=== PATIENT | female | born 1955 | race Caucasian/White ===

== ENCOUNTER 2017-05-28 16:47 | Inpatient (IN) | payer OTHER ==
[2017-05-28] MEDS ORDERED: Levofloxacin 750mg IV 750 MG/150 ML BAG IV SCH (18:00)
[2017-05-28 18:24] LABS: Albumin 3.4 g/dL (3.2-5.5); Bilirubin Total 1.2 mg/dL (0.3-1.2); Potassium 4.4 mEq/L (3.6-5.0); Protein, Total 7.6 g/dL (6.0-8.3)
[2017-05-28 18:29] LABS: Absolute Lymphocytes (CBC) 1.1 K/uL (0.7-4.9); Absolute Monocytes 0.6 K/uL (0.1-1.3); Basophils % 0.2 % (0-1.3); Eosinophils % 0.1 % (0-4.4); Hematocrit 30.7 % (36.0-45.0); Lymphocytes % 6.6 % (15.3-44.8); MCH 29.3 pg (27.0-35.0); MCV 86.4 fL (80-100); MPV 8.9 fL (7.6-11.3); Monocytes % 3.8 % (3.3-12.3); RBC Red Blood Cell Count 3.56 M/uL (3.86-4.86)
[2017-05-28 19:16] LABS: Urine Appearance CLOUDY; Urine Blood TRACE (NEG); Urine Color DK YELLOW; Urine Glucose NEGATIVE (NEG); Urine Protein 2+ (NEG); Urine Specific Gravity 1.025 (1.005-1.030); Urine Urobilinogen 0.2 mg/dL (0.2-1.0)
[2017-05-28 19:22] LABS: Urine Bilirubin 1+ (NEG)
[2017-05-28 19:23] LABS: Urine Microscopic Reflex ORDER UMIC
[2017-05-28 19:27] LABS: Urine Bacteria 20-50 /HPF (<20); Urine Culture Reflex Order REFLEXED; Urine Mucus 2+ /HPF (NONE SEEN)
[2017-05-28 19:46] LABS: Blood Morphology Comment NOT SEEN (NOT SEEN); Platelet Estimate ADEQ; Urine White Blood Cell Casts OK
[2017-05-28] MEDS ORDERED: GLUCAGON 1 MG/VIAL IM PRN (20:20)
[2017-05-28] MEDS ORDERED: D50W 25 GM/50 ML SYRINGE IV PRN (20:20)
[2017-05-28] MEDS ORDERED: GUAIFENESIN/CODEINE 5ML UCUP PO SCH (21:00)
[2017-05-28] MEDS: GABAPENTIN PO SCH (21:00)
[2017-05-28] MEDS: GUAIFENESIN/CODEINE 5ML UCUP PO PRN (21:51)
[2017-05-28] MEDS: INSULIN DETEMIR 100 UNIT/1 ML INSULIN SQ SCH (22:13)
[2017-05-28] MEDS: INSULIN -REGULAR HUMAN 50 UNIT/0.5 ML ML SQ SCH (22:13)
[2017-05-28] MEDS: ATORVASTATIN 40 MG TAB PO SCH (22:36)
[2017-05-29] MEDS: GUAIFENESIN/CODEINE 5ML UCUP PO PRN ×3 (05:11→20:30)
[2017-05-29] MEDS: INSULIN -REGULAR HUMAN 50 UNIT/0.5 ML ML SQ SCH ×4 (07:30→21:19)
--- NOTE | 2017-05-29 08:43 | P.CNS ---
Date of Consult: 05/29/17 Reason for Consult: Shortness of breath Chief Complaint: Shortness of breath History of Present Illness: Patient is 61 years of age has become sick over the weekend started complaining of worsening dyspnea cough congestion feeling weak had some low-grade fever pain all over and was admitted to the hospital she has had no prior pulmonary problems history of cornea artery disease patient does not take any bronchodilators or inhalers patient does not smoke Allergies prednisone Allergy (Verified 05/07/17 12:59) Hives/Rash vancomycin Adverse Reaction (Verified 05/07/17 12:59) Itching/Hives/Rash Home Medications: Clopidogrel Bisulfate [Clopidogrel] 75 mg PO DAILY 05/20/14 Furosemide 80 mg PO DAILY 05/20/14 Glimepiride 4 mg PO DAILY 05/20/14 Levothyroxine Sodium 200 mcg PO DAILY 05/20/14 Ranolazine [Ranexa] 1,000 mg PO BID #180 tab.er.12h 12/23/14 Amlodipine [Norvasc*] 5 mg PO DAILY 05/07/17 Atorvastatin Calcium [Lipitor] 40 mg PO BEDTIME 05/07/17 Escitalopram [Lexapro*] 20 mg PO DAILY 05/07/17 Gabapentin [Gralise] 300 mg PO DAILY 05/07/17 Gabapentin [Gralise] 2 tab PO BEDTIME 05/28/17 Insulin Aspart [Novolog] 10 - 15 units SQ BIDWM 05/28/17 Insulin Glargine,Hum.rec.anlog [Lantus] 45 units SQ BEDTIME 05/28/17 - Past Medical/Surgical History Diabetic: Yes -: IDDM -: Hyperlipidemia -: mild CHF -: HTN -: hysterectomy -: thyroidectomy -: choleysectomy -: R foot sx -: heart stents X2 - Family History Mother Medical History: Stroke Notes: heart stent Father Medical History: Heart disease, Cancer - Social History Alcohol use: No CD- Drugs: No Caffeine use: Yes Place of Residence: Home Review of Systems 10-point ROS is otherwise unremarkable Physical Examination Temp Pulse Resp BP Pulse Ox 98.2 F 87 16 142/66 H 91 05/29/17 04:00 05/29/17 04:00 05/29/17 04:00 05/29/17 04:00 05/29/17 04:00 General: Alert, Oriented x3 HEENT: Atraumatic Neck: Supple Respiratory: Clear to auscultation bilaterally, Diminished Cardiovascular: No edema, Regular rate/rhythm Gastrointestinal: Normal bowel sounds, Soft and benign, No tenderness, No masses Laboratory Data (last 24 hrs) 05/28/17 17:44: Sodium 130 L, Potassium 4.4, BUN 55 H, Creatinine 2.28 H, Glucose 233 H, Total Bilirubin 1.2, AST 61 H, ALT 43, Alkaline Phosphatase 106 05/28/17 17:44: WBC 16.8 H, Hgb 10.4 L, Hct 30.7 L, Plt Count 281 - Problems (1) Pneumonia Onset Date: 05/20/14 Current Visit: No Status: Acute Plan: Patient is 61 years of age admitted with 3-4 history of increasing shortness of breath cough congestion fever found to have a left lower lobe pneumonia her white count is elevated renal function is mildly worse cultures are pending oxygenation satisfactory on 2 L vital signs stable patient is on IV levofloxacin patient does have some diastolic dysfunction she has had echoes and to cardiac caths history of coronary artery disease Qualifiers: Lung location: unspecified part of lung
[2017-05-29] MEDS: FUROSEMIDE 40 MG TABLET PO SCH (08:46)
[2017-05-29] MEDS: GLIMEPIRIDE 2 MG TABLET PO SCH (08:46)
[2017-05-29] MEDS: CLOPIDOGREL 75 MG TABLET PO SCH (08:47)
[2017-05-29] MEDS: ESCITALOPRAM 20 MG TAB PO SCH (08:47)
[2017-05-29] MEDS: AMLODIPINE 5 MG TAB PO SCH (08:47)
[2017-05-29] MEDS: LEVOTHYROXINE SOD 0.1 MG TAB PO SCH (08:47)
[2017-05-29] MEDS: ENOXAPARIN 30 MG/0.3 ML SQ SCH (17:28)
--- NOTE | 2017-05-29 19:24 | HP ---
Date of Admission: 05/28/2017 Chief Complaint: Cough, fever, shortness of breath. History Of Present Illness: A 61-year-old female was brought to the office with a few days of cough, congestion and fever. She was examined, and clinically she was thought to have pneumonia. An x-ray outpatient was done, which confirmed large left pneumonia. The patient is admitted. The patient de nied any history of hemoptysis. Past Medical History: Extensive, includes history of chronic renal failure, coronary artery disease, congestive heart failure, type 2 diabetes, hypothyroidism. She had multiple surgeries for her feet. Family History: Diabetes present. Personal History: Nonsmoker. Allergies: VANCOMYCIN, PREDNISONE. Review of Systems: No chest pain. Physical Examination: General: Revealed a 61-year-old female, morbidly obese. HEENT: Negative. Neck: Supple. JVD negative. Chest: Crackles and wheezes in both lung boo, left more than the right. Heart: Regular. Abdomen: Pendulous. Nontender. Extremities: No evidence of cellulitis. Mild pedal edema present. Laboratory Data: White count 74921. Chest x-ray, left-sided pneumonia with effusion. Assessment: 1.Large left-sided pneumonia. 2.Chronic renal failure. 3.Type 2 diabetes requiring insulin. 4.Hypertension. 5.Congestive heart failure. 6.Hypothyroidism. 7.Known coronary artery disease. Plan: IV Levaquin. Pulmonary consultation. Fingerstick blood sugars, and insulin coverage. Restar t other medications. TYLER/HOA Voice ID: [id number]
[2017-05-29] MEDS: GABAPENTIN PO SCH (21:00)
[2017-05-29] MEDS: ATORVASTATIN 40 MG TAB PO SCH (21:18)
[2017-05-29] MEDS: INSULIN DETEMIR 100 UNIT/1 ML INSULIN SQ SCH (21:18)
[2017-05-30] MEDS: GUAIFENESIN/CODEINE 5ML UCUP PO PRN ×4 (02:11→22:35)
--- NOTE | 2017-05-30 06:25 | PN ---
The patient has normal temperature today. She is feeling better. She still has crackles, left lung boo. I ordered a chest x-ray to see the amount of resolution. Pending that she will be continued on the same antibiotic treatment. TYLER/HOA Voice ID: [id number] Report ID: [id number]
[2017-05-30] MEDS: GLIMEPIRIDE 2 MG TABLET PO SCH (08:23)
[2017-05-30] MEDS: INSULIN -REGULAR HUMAN 50 UNIT/0.5 ML ML SQ SCH ×4 (08:23→22:36)
[2017-05-30] MEDS: ESCITALOPRAM 20 MG TAB PO SCH (08:24)
[2017-05-30] MEDS: FUROSEMIDE 40 MG TABLET PO SCH (08:24)
[2017-05-30] MEDS: CLOPIDOGREL 75 MG TABLET PO SCH (08:24)
[2017-05-30] MEDS: AMLODIPINE 5 MG TAB PO SCH (08:24)
[2017-05-30] MEDS: LEVOTHYROXINE SOD 0.1 MG TAB PO SCH (08:25)
--- NOTE | 2017-05-30 08:30 | RAD REPORT ---
EXAM DESCRIPTION: RAD - Chest Pa And Lat (2 Views) - 05/30/2017 6:43 am CLINICAL HISTORY: Pneumonia COMPARISON: 05/28/2017, and 10/03/2016 FINDINGS: Pleural and parenchymal opacity in the left inferior lung appears stable since the compara tive study. Small pleural effusions suspected bilaterally. The heart is mildly enlarged in size. IMPRESSION: Stable left lower lung opacity since 05/28/2017.
--- NOTE | 2017-05-30 08:42 | P.PN ---
Subjective Date of Service: 05/30/17 Chief Complaint: Pneumonia Subjective: Improving (Patient is doing better his slight cough shortness of breath still hypoxic) Review of Systems General: Weakness Respiratory: Cough, Shortness of Breath Physical Examination - Vital Signs Temperature: 97.7 F Blood Pressure: 140/64 Pulse: 80 Respirations: 20 Pulse Ox (%): 95 - Physical Exam General: Alert, Oriented x3 Neck: Supple Respiratory: Crackles/rales (Crackles at the left base) Cardiovascular: No edema, Normal S1 S2 Assessment & Plan - Problems (Diagnosis) (1) Pneumonia Onset Date: 05/20/14 Current Visit: No Status: Acute Plan: Patient admitted with left lower lobe pneumonia chest x-ray shows haziness of ordered some labs blood cultures pending consult pharmacy to adjust the dose of levofloxacin patient has renal failure CT scan of thorax patient is hypoxic possible discharge tomorrow on p.o. levofloxacin she may need home oxygen Qualifiers: Lung location: unspecified part of lung
[2017-05-30 09:13] LABS: Hematocrit 29.5 % (36.0-45.0); MCH 28.7 pg (27.0-35.0); MCV 85.6 fL (80-100); MPV 8.6 fL (7.6-11.3); RBC Red Blood Cell Count 3.45 M/uL (3.86-4.86)
--- NOTE | 2017-05-30 09:31 | RAD REPORT ---
EXAM DESCRIPTION: CT - Thorax Wo Con CLINICAL HISTORY: Shortness of breath, pneumonia COMPARISON: Recent chest radiographs. FINDINGS: Dense airspace consolidation is seen involving the lingula with air bronchograms. Mild tomasa ear opacities also present in the left lower lobe. A small left pleural effusion is seen. No pneumoth orax. Mildly prominent lymph nodes are present in the mediastinum in left hilum, likely reactive. Moderate thoracic spondylosis is seen. A small hiatal hernia. All CT scans are performed using dose optimization technique as appropriate and may include automated exposure control or mA/KV adjustment according to patient size. IMPRESSION: Airspace consolidation involving the lingula is noted with air bronchograms, likely repr esenting pneumonia. Small left pleural effusion is seen.
[2017-05-30 09:55] LABS: Potassium 4.7 mEq/L (3.6-5.0)
[2017-05-30] MEDS: ENOXAPARIN 30 MG/0.3 ML SQ SCH (16:30)
[2017-05-30] MEDS ORDERED: Levofloxacin 750mg IV 750 MG/150 ML BAG IV SCH (17:00)
[2017-05-30 20:46] VITALS: O2SAT 90
[2017-05-30] MEDS: GABAPENTIN PO SCH (21:00)
[2017-05-30] MEDS: ATORVASTATIN 40 MG TAB PO SCH (22:34)
[2017-05-30] MEDS: INSULIN DETEMIR 100 UNIT/1 ML INSULIN SQ SCH (22:35)
[2017-05-31 04:29] VITALS: BP 114/62; TEMP 97.4
[2017-05-31 04:30] VITALS: BMI 45.6
--- NOTE | 2017-05-31 08:58 | P.PN ---
Subjective Date of Service: 05/31/17 Chief Complaint: Pneumonia Subjective: Improving (Patient is doing much better today the minimal cough) Review of Systems Unremarkable Physical Examination - Vital Signs Temperature: 97.4 F Blood Pressure: 114/62 Pulse: 74 Respirations: 16 Pulse Ox (%): 93 - Physical Exam General: Alert Neck: Supple Respiratory: Clear to auscultation bilaterally Cardiovascular: No edema, Normal S1 S2 - Studies Laboratory Data (last 24 hrs) 05/30/17 08:51: Sodium 125 L, Potassium 4.7, BUN 73 H, Creatinine 2.67 H, Glucose 253 H 05/30/17 08:51: WBC 12.6 H D, Hgb 9.9 L, Hct 29.5 L, Plt Count 283 Microbiology Data (last 24 hrs): 05/28/17 17:44 Blood Aerobic Blood Culture - Final 05/28/17 17:44 Blood Gram Stain - Final 05/28/17 17:44 Blood Anaerobic Blood Culture - Final 05/28/17 17:44 Blood Gram Stain - Final 05/28/17 19:05 Clean Catch Urine [employer] Count - Final >100,000 CFU/ML. 05/28/17 19:05 Clean Catch Urine - Final Escherichia Coli Assessment & Plan - Problems (Diagnosis) (1) Pneumonia Onset Date: 05/20/14 Current Visit: No Status: Acute Plan: Patient admitted with pneumonia and clinically doing better room-air sat is 90% mildly hyponatremia patient is clinically doing better can be discharged home on Levaquin every other day follow up with me in 2 weeks pre clinic chest x-ray Qualifiers: Pneumonia type: due to unspecified organism Lung location: unspecified part of lung
[2017-05-31] MEDS: ESCITALOPRAM 20 MG TAB PO SCH (09:01)
[2017-05-31] MEDS: FUROSEMIDE 40 MG TABLET PO SCH (09:01)
[2017-05-31] MEDS: GLIMEPIRIDE 2 MG TABLET PO SCH (09:01)
[2017-05-31] MEDS: INSULIN -REGULAR HUMAN 50 UNIT/0.5 ML ML SQ SCH ×2 (09:01→11:53)
[2017-05-31] MEDS: LEVOTHYROXINE SOD 0.1 MG TAB PO SCH (09:02)
[2017-05-31] MEDS: AMLODIPINE 5 MG TAB PO SCH (09:02)
[2017-05-31] MEDS: CLOPIDOGREL 75 MG TABLET PO SCH (09:02)
--- NOTE | 2017-06-25 01:15 | DS ---
Date of Discharge: 05/31/2017 Final Diagnoses: 1.Pneumonia, left side. 2.Chronic renal failure. 3.Type 2 diabetes requiring insulin. 4.Hypertension. 5.Congestive heart failure. 6.Hypothyroidism. 7.Known coronary artery disease. Hospital Course: This patient was admitted because of fever, chills, cough, and shortness of breath and evidence of pneumonia on the left side on the x-ray as well as white count of 16,000. The patien t after admission was started on Levaquin. The patient was seen by Dr. Bolton as part of Pulmonary consultation. He did a CT chest to see if there is any evidence of other problem requiring addition al measures. The patient continued to improve on levofloxacin. The patient showed improvement over the next few days and she was discharged home on 05/31 on oral antibiotic and to have follow up in [facility] office. Laboratory Data: Please refer to the chart. MENA Voice ID: [id number] Report ID: [id number]
== END 2017-05-31 12:28 | disposition home or self-care (01) | DRG 194 ==
LOC: 2ND 16:55
PROVIDERS: ADMIT Internal Medicine; ATTEND Internal Medicine
DX: J18.9 Pneumonia, unspecified organism (principal); E87.1 Hypo-osmolality and hyponatremia; I13.0 Hypertensive heart and chronic kidney disease with heart failure and stage 1 through stage 4 chronic kidney disease, or unspecified chronic kidney disease; Z68.42 Body mass index [BMI] 45.0-49.9, adult; E11.22 Type 2 diabetes mellitus with diabetic chronic kidney disease; N18.9 Chronic kidney disease, unspecified; I50.9 Heart failure, unspecified; E03.9 Hypothyroidism, unspecified; I25.10 Atherosclerotic heart disease of native coronary artery without angina pectoris; E66.01 Morbid (severe) obesity due to excess calories; R09.02 Hypoxemia
CPT/HCPCS: 36415; 71046; 71250; 80048; 80053; 81003; 81015; 82962; 85025; 85027; 87040; 87070; 87077; 87086; 87088; 87186; 87205; 94760; J1650

== ENCOUNTER 2017-12-07 18:40 | Inpatient (IN) | payer OTHER ==
[2017-12-07] MEDS ORDERED: GLUCAGON 1 MG/VIAL IM PRN (19:52)
[2017-12-07] MEDS ORDERED: D50W 25 GM/50 ML SYRINGE IV PRN (19:52)
[2017-12-07] MEDS ORDERED: SOD POLYSTYREN SUL 15 GM/60 ML UCUP PO ONE (21:00)
[2017-12-07] MEDS: INSULIN -REGULAR HUMAN 50 UNIT/0.5 ML ML SQ SCH (21:50)
[2017-12-07 22:56] LABS: Urine Appearance CLEAR; Urine Bilirubin NEGATIVE (NEG); Urine Blood TRACE (NEG); Urine Color YELLOW; Urine Glucose 2+ (NEG); Urine Protein 2+ (NEG); Urine Specific Gravity 1.015 (1.005-1.030); Urine Urobilinogen 0.2 mg/dL (0.2-1.0); Urine pH 6.5 (5.0-7.0)
[2017-12-07 23:15] LABS: Urine Microscopic Reflex ORDER UMIC
[2017-12-07] MEDS ORDERED: CLINDAMYCIN 600MG/D5W 0 MG/0 ML BAG IV ONE (23:47)
[2017-12-08] MEDS ORDERED: CLINDAMYCIN IV 150 MG/ML (6 mL) VIAL ONE (00:09)
[2017-12-08] MEDS ORDERED: NA CHLORIDE 0.9% 100 ML IV ONE (00:13)
[2017-12-08] MEDS ORDERED: NA CHLORIDE 0.9% 50 ML ONE (00:14)
[2017-12-08 00:20] LABS: Urine Bacteria <20 /HPF (<20)
[2017-12-08 00:21] LABS: Urine Culture Reflex Order REFLEXED; Urine RBC <5 /HPF (NONE SEEN)
[2017-12-08] MEDS: CLINDAMYCIN INJ 300 MG in NA CHLORIDE 0.9% 50 ML IV SCH ×3 (00:24→17:43)
[2017-12-08 05:37] LABS: Potassium 3.7 mmol/L (3.5-5.1)
[2017-12-08] MEDS: AMLODIPINE 5 MG TAB PO SCH (08:35)
[2017-12-08] MEDS: INSULIN -REGULAR HUMAN 50 UNIT/0.5 ML ML SQ SCH ×4 (08:36→22:09)
[2017-12-08] MEDS: CLOPIDOGREL 75 MG TABLET PO SCH (08:37)
[2017-12-08 08:45] LABS: Uric Acid 7.6 mg/dL (2.6-6.0)
[2017-12-08] MEDS ORDERED: GABAPENTIN PO SCH (09:00)
[2017-12-08] MEDS: FUROSEMIDE 40 MG TABLET PO SCH (10:03)
[2017-12-08] MEDS ORDERED: FUROSEMIDE 40 MG/4 ML VIAL IV ONE (13:41)
--- NOTE | 2017-12-08 15:26 | RAD REPORT ---
EXAM DESCRIPTION: Sarah Single View12/08/2017 3:07 pm CLINICAL HISTORY: Chest pain COMPARISON: July 2017 FINDINGS: The lungs appear clear of acute infiltrate. The heart is mildly enlarged IMPRESSION: No acute abnormalities displayed
[2017-12-08 15:38] LABS: Urine Appearance TURBID; Urine Bilirubin NEGATIVE (NEG); Urine Blood NEGATIVE (NEG); Urine Color YELLOW; Urine Glucose NEGATIVE (NEG); Urine Protein NEGATIVE (NEG); Urine Urobilinogen 0.2 mg/dL (0.2-1.0)
[2017-12-08 15:41] LABS: Urine Microscopic Reflex ORDER UMIC
[2017-12-08 16:48] LABS: Urine Bacteria LOADED /HPF (<20); Urine Culture Reflex Order NOT NEEDED; Urine RBC <5 /HPF (NONE SEEN)
--- NOTE | 2017-12-08 17:16 | RAD REPORT ---
EXAM DESCRIPTION: US - Renal Ultrasound-Complete - 12/08/2017 4:44 pm CLINICAL HISTORY: . Acute renal insufficiency COMPARISON: None. FINDINGS: The right kidney measures 12 cm with an increased echotexture. The left kidney measures 12 cm with an increased echotexture. Hydronephrosis is not seen. No gross abnormality of bladder is seen IMPRESSION: Increased renal echotexture consistent with parenchymal disease.
[2017-12-08] MEDS: ENOXAPARIN 30 MG/0.3 ML SQ SCH (17:42)
--- NOTE | 2017-12-08 20:09 | CON ---
Date of Consultation: 12/08/2017 Consulting Physician: Jarvis Javed M.D. Reason For Consultation: Elevated BUN and creatinine, hyperkalemia. History Of Present Illness: This is a pleasant 62-year-old female with significant past medical hist ory of coronary artery disease status post HI 5 years back status post PTCA complicated with congesti ve heart failure, with retinopathy neuropathy and nephropathy, hypothyroidism status post thyroidecto my. The patient have chronic kidney disease according to her, at that time it was secondary to acute kidney injury secondary to vanc toxicity. Since then according to her kidney function has been impr minnie and being stable. Apparently, the patient had cellulitis in her leg, was started on clindamycin . Repeated lab workup show elevation in BUN and creatinine and hyperkalemia, for that reason Dr. Prabha gill refer her to the hospital. In the hospital, primary workup showed elevation of BUN and creatinine , marginal hyperkalemia. The patient was given Kayexalate, hyperkalemia has been resolved. The ernie ent still have significant anasarca. Redness and erythema on the lower extremity have been improved. Allergies: TO PREDNISONE AND VANCOMYCIN. Past Medical History: Include: 1.Hypertension. 2.Hyperlipidemia. 3.Diabetes complicated with neuropathy, nephropathy, and retinopathy. 4.Chronic kidney disease. Social History: Denies smoking, denies drinking, denies drug abuse. Family History: Positive for diabetes. Past Surgical History: Include PTCA. Review of Systems: Head and Neck: No red eye. No ear pain. GI: No nausea, no vomiting. : No polyuria. No dysuria. No hematuria. 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 Respiratory: Has shortness of breath. Cardiovascular: Has leg swelling. Endocrine: No polydipsia. Skin: No rash except erythema on the lower extremity. Neuro: Has neuropathy. Musculoskeletal: Has low back pain. The patient using wheelchair. Physical Examination: Vital Signs: When I saw the patient, blood pressure 150/68, pulse of 88. Chest: Crackles at bilateral base. Heart: S1, S2. Systolic murmur. Abdomen: Soft, nontender, morbidly obese. Extremities: +2 edema, erythema on the left leg. Neuro: Alert and oriented x3. No focal. Laboratory Data: Sodium 136, potassium 3.7, bicarb 29, BUN 43, creatinine 1.9, calcium 7.1, CK 139. Medications: Current medications in the hospital include: 1.Amlodipine. 2.Clindamycin. 3.Lovenox. 4.Lasix 80 b.i.d. oral. 5.Ranexa. Assessment And Plan: 1.Acute kidney injury on chronic kidney disease, over volume. I am going to go ahead and give the p atient extra dose of Lasix. We going to go ahead and send for renal ultrasound, protein and creatini ne. I going to send for TSH given the anasarca and we will monitor. 2.Hyperkalemia possible secondary to renal failure. I am going to go ahead and send for TSH, fecal occult. We will diurese the patient currently. Hyperkalemia, resolved. 3.Anasarca secondary to renal failure. Possible pulmonary hypertension. Given the body habit and t he patient being on Ranexa and questionable secondary to calcium channel oleg. I am going to cont inue calcium channel oleg for the time being. I am going to give the patient aggressive diuresis. We will send for protein creatinine and TSH and we will follow up. 4.Cellulitis as by primary. Thank you Dr. Javed for allowing us to participate in the care of your patient. JOSE F Voice ID: [id number] Report ID: [id number]
--- NOTE | 2017-12-08 20:33 | HP ---
Date of Admission: 12/07/2017 Chief Complaint: Cellulitis, leg. Hyperkalemia. History Of Present Illness: A 62-year-old female was seen in the office with infection of the leg. The patient was given antibiotic and outpatient lab was done. She had a potassium of 5.7 with elevat ed BUN and creatinine. I contacted the patient, as she had reported no improvement of the infection of the leg. In view of this and need for correction of her potassium, the patient was admitted. No history of chest pain or shortness of breath. Past Medical History: Extensive, includes, History of type 2 diabetes requiring insulin, noncompliance with diet and poor control of diabetes. Chronic renal insufficiency related to multiple factors including vancomycin toxicity in the past. S he has a history of hyperlipidemia, coronary artery disease, and congestive heart failure. Other pro blems include history of hypertension. Past Surgical History: Positive for foot surgery, coronary angioplasty, gallbladder surgery, thyroid surgery, and hysterectomy. Family History: Diabetes present. Personal History: She is allergic to vancomycin and prednisone. However, I am not convinced that th ose are true allergies by history. Review of Systems: No chest pain or shortness of breath. Physical Examination: General: A 62-year-old obese female. Vital Signs: Normal. HEENT: Negative. Neck: Supple. JVD negative. Chest: Few scattered wheezes. Heart: Regular. Abdomen: Pendulous. Nontender. Extremities: There is an area of cellulitis and open wounds, left leg. There is bilateral pedal luc ma. Laboratory Data: Done as an outpatient showed a potassium of 5.7, BUN over 40, creatinine over 2. T hose records are not available on line. Assessment: 1.Acute on chronic renal failure. 2.Cellulitis of the leg. 3.Hyperkalemia. 4.Known diabetes mellitus, noncompliant with diet and weight control. 5.Hyperlipidemia. 6.Known coronary artery disease and angioplasty. 7.Congestive heart failure. 8.Multiple surgeries including foot surgery and amputation of toes. Plan: The patient is started on clindamycin. Kayexalate made her potassium back to normal today. S he will be continued on IV clindamycin. Nephrology consultation done to see what else can be done to improve her kidney function. TYLER/HOA Voice ID: [id number]
[2017-12-08] MEDS ORDERED: ASPIRIN 81 MG CHEWABLE TABLET PO SCH (21:00)
[2017-12-08] MEDS ORDERED: INSULIN GLARGINE 100 UNITS/ML SQ SCH (21:00)
[2017-12-08] MEDS ORDERED: ESCITALOPRAM 20 MG TAB PO SCH (21:00)
[2017-12-08] MEDS ORDERED: CALCIUM CARB PO SCH (21:00)
[2017-12-08] MEDS ORDERED: VIT K1 PO SCH (21:00)
[2017-12-08] MEDS ORDERED: [UNRECOGNIZED DRUG - OTHER] PO SCH (21:00)
[2017-12-08] MEDS ORDERED: ATORVASTATIN 40 MG TAB PO SCH (21:00)
[2017-12-08] MEDS ORDERED: VITAMIN D3 PO SCH (21:00)
[2017-12-08] MEDS ORDERED: GABAPENTIN 300 MG CAP PO SCH (21:57)
[2017-12-09] MEDS: CLINDAMYCIN INJ 300 MG in NA CHLORIDE 0.9% 50 ML IV SCH ×3 (01:04→17:00)
[2017-12-09 06:31] VITALS: BMI 46.8
[2017-12-09 07:15] LABS: Albumin 2.8 g/dL (3.4-5.0); Phosphorus 5.7 mg/dL (2.5-4.9); Potassium 3.7 mmol/L (3.5-5.1); Thyroid Stimulating Hormone 0.988 uIU/mL (0.360-3.740)
[2017-12-09] MEDS ORDERED: CALCIUM GLUC 10% INJ 4.65 MEQ in NA CHLORIDE 0.9% 100 ML IV ONE (07:34)
[2017-12-09] MEDS ORDERED: CALCIUM GLUCONATE 1gm/100 ML NS (4.65 mEq/100mL) IV ONE ×2 (08:00)
[2017-12-09] MEDS ORDERED: GABAPENTIN 300 MG CAP PO SCH (09:00)
[2017-12-09] MEDS: INSULIN -REGULAR HUMAN 50 UNIT/0.5 ML ML SQ SCH ×3 (09:04→17:43)
[2017-12-09] MEDS: AMLODIPINE 5 MG TAB PO SCH (09:07)
[2017-12-09] MEDS: CLOPIDOGREL 75 MG TABLET PO SCH (09:07)
[2017-12-09] MEDS: FUROSEMIDE 40 MG TABLET PO SCH (09:08)
[2017-12-09 10:29] VITALS: O2SAT 98
[2017-12-09] MEDS ORDERED: FUROSEMIDE 40 MG/4 ML VIAL IV ONE (13:00)
[2017-12-09] MEDS: ENOXAPARIN 30 MG/0.3 ML SQ SCH (17:00)
[2017-12-09 17:58] VITALS: BP 140/62; TEMP 97.5
--- NOTE | 2017-12-09 20:20 | PN ---
Date of Progress Note: 12/09/2017 Subjective: The patient is doing better shortness of breath has subsided. Still has some edema. Physical Examination: Vital Signs: Blood pressure 147/67, pulse of 73. Chest: Clear to auscultation. Heart: S1, S2. Regular. Abdomen: Soft, nontender. Extremities: +2 edema. Laboratory Data: Sodium 140, potassium 3.7, bicarb 30, BUN 40, creatinine of 2, calcium 6.5, phospho robyn 5.7. Albumin 2.8, corrected calcium is 7.6. Current Medications: The patient on include Lasix 80 mg daily, atorvastatin, aspirin, Norvasc, Plavi x, gabapentin, insulin, and Ranexa. Assessment And Plan: 1.Acute kidney injury on chronic kidney disease. Normal size kidney, proteinuric, nonnephrotic. St ill on the wet side. I am going give the patient extra dose of Lasix today, and we will monitor. Th e patient is going to be cleared from the renal standpoint for discharge planning, to followup in the office in 2 to 3 weeks with chemistry. 2.Hyperkalemia, resolved. 3.Anasarca, secondary to renal failure. Continue diuresis. We will give extra dose of Lasix today. Because of the possibility secondary to calcium channel oleg, I am going to discontinue the Norv asc today. 4.Hypothyroidism has been ruled out. 5.Cellulitis. Continue clindamycin. 6.Diabetes, as by Primary. FAITH/HOA Voice ID: [id number] Report ID: [id number]
== END 2017-12-09 18:20 | disposition home or self-care (01) | DRG 603 ==
LOC: 4TH 19:19
PROVIDERS: ADMIT Internal Medicine; ATTEND Internal Medicine
DX: L03.116 Cellulitis of left lower limb (principal); I13.0 Hypertensive heart and chronic kidney disease with heart failure and stage 1 through stage 4 chronic kidney disease, or unspecified chronic kidney disease; N17.9 Acute kidney failure, unspecified; E87.5 Hyperkalemia; Z91.11 Patient's noncompliance with dietary regimen; E78.5 Hyperlipidemia, unspecified; E11.9 Type 2 diabetes mellitus without complications; I25.10 Atherosclerotic heart disease of native coronary artery without angina pectoris; Z98.61 Coronary angioplasty status; Z88.1 Allergy status to other antibiotic agents; Z88.8 Allergy status to other drugs, medicaments and biological substances; I25.2 Old myocardial infarction; E11.40 Type 2 diabetes mellitus with diabetic neuropathy, unspecified; E11.319 Type 2 diabetes mellitus with unspecified diabetic retinopathy without macular edema; E11.21 Type 2 diabetes mellitus with diabetic nephropathy; E03.9 Hypothyroidism, unspecified; E11.22 Type 2 diabetes mellitus with diabetic chronic kidney disease; N18.9 Chronic kidney disease, unspecified; I50.9 Heart failure, unspecified
CPT/HCPCS: 36415; 71045; 76770; 80048; 80069; 81003; 81015; 82550; 82570; 82962; 83970; 84156; 84443; 84550; 87077; 87086; 87088; 87186; J0610; J1650

== ENCOUNTER 2018-05-27 13:28 | Inpatient (IN) | payer OTHER ==
--- NOTE | 2018-05-27 16:09 | RAD REPORT ---
EXAM DESCRIPTION: RAD - Hand Right 3 View - 05/27/2018 3:55 pm CLINICAL HISTORY: Cellulitis R hand Pain and swelling COMPARISON: No comparisons FINDINGS: Soft tissue swelling is seen along the dorsum of the hand. No fracture, dislocation or arnaldo dence of osteomyelitis. Vascular calcifications are evident.
[2018-05-27 16:12] VITALS: BMI 42.5
[2018-05-27] MEDS ORDERED: D50W 25 GM/50 ML SYRINGE IV PRN (17:01)
[2018-05-27] MEDS ORDERED: GLUCAGON 1 MG/VIAL IM PRN (17:01)
[2018-05-27 17:47] LABS: Absolute Lymphocytes (CBC) 1.5 K/uL (0.7-4.9); Absolute Monocytes 0.8 K/uL (0.1-1.3); Absolute Neutrophil 8.3 K/uL (1.8-8.0); Basophils % 0.7 % (0-1.3); Eosinophils % 1.1 % (0-4.4); Hematocrit 35.9 % (36.0-45.0); Lymphocytes % 14.3 % (15.3-44.8); MPV 9.1 fL (7.6-11.3); RBC Red Blood Cell Count 4.02 M/uL (3.86-4.86)
[2018-05-27 18:03] LABS: Albumin 3.2 g/dL (3.4-5.0); Bilirubin Total 0.7 mg/dL (0.2-1.0); Potassium 4.1 mmol/L (3.5-5.1); Protein, Total 7.6 g/dL (6.4-8.2)
[2018-05-27] MEDS: CLINDAMYCIN INJ 600 MG in NA CHLORIDE 0.9% 50 ML IV SCH (18:25)
[2018-05-27] MEDS ORDERED: MORPHINE 2 MG/ML SYR IV PRN (20:51)
[2018-05-27] MEDS ORDERED: CALCIUM CARB PO SCH (21:00)
[2018-05-27] MEDS ORDERED: VITAMIN D3 PO SCH (21:00)
[2018-05-27] MEDS ORDERED: [UNRECOGNIZED DRUG - OTHER] PO SCH (21:00)
[2018-05-27] MEDS ORDERED: VIT K1 PO SCH (21:00)
[2018-05-27] MEDS: INSULIN GLARGINE 100 UNITS/ML SQ SCH (21:31)
[2018-05-27] MEDS: ZOLPIDEM TARTRATE 10 MG TABLET PO SCH (21:31)
[2018-05-27] MEDS: ATORVASTATIN 80 MG TAB PO SCH (21:31)
[2018-05-27] MEDS: GABAPENTIN 100 MG CAP PO SCH (21:31)
[2018-05-27] MEDS: INSULIN -REGULAR HUMAN 50 UNIT/0.5 ML ML SQ SCH (21:32)
[2018-05-27] MEDS ORDERED: INSULIN -REGULAR HUMAN 50 UNIT/0.5 ML ML IV ONE (23:16)
[2018-05-28] MEDS: CLINDAMYCIN INJ 600 MG in NA CHLORIDE 0.9% 50 ML IV SCH ×4 (00:24→17:09)
[2018-05-28] MEDS: LEVOTHYROXINE SOD 0.125 MG TAB PO SCH (05:54)
[2018-05-28] MEDS: INSULIN -REGULAR HUMAN 50 UNIT/0.5 ML ML SQ SCH ×4 (07:30→21:16)
[2018-05-28] MEDS: CALCIUM CARB 500MG/VIT D 200 IU TAB PO SCH ×2 (09:00→21:20)
[2018-05-28] MEDS: GABAPENTIN 100 MG CAP PO SCH ×2 (09:32→21:15)
[2018-05-28] MEDS: ASPIRIN 81 MG CHEWABLE TABLET PO SCH (09:32)
[2018-05-28] MEDS: FUROSEMIDE 40 MG TABLET PO SCH (09:32)
[2018-05-28] MEDS: METOPROLOL XL 25 MG TAB PO SCH (09:32)
[2018-05-28] MEDS: AMLODIPINE 5 MG TAB PO SCH (09:32)
[2018-05-28] MEDS: CLOPIDOGREL 75 MG TABLET PO SCH (09:32)
[2018-05-28 10:46] LABS: Urine Appearance CLEAR; Urine Bilirubin NEGATIVE (NEG); Urine Blood NEGATIVE (NEG); Urine Color YELLOW; Urine Glucose 1+ (NEG); Urine Protein 2+ (NEG); Urine Urobilinogen 0.2 mg/dL (0.2-1.0)
[2018-05-28 10:51] LABS: Urine Microscopic Reflex ORDER UMIC
[2018-05-28] MEDS: MORPHINE 4 MG/ML SYR IV PRN (11:38)
[2018-05-28 12:07] LABS: Urine Bacteria LOADED /HPF (<20); Urine Culture Reflex Order REFLEXED; Urine RBC <5 /HPF (NONE SEEN)
--- NOTE | 2018-05-28 18:27 | RAD REPORT ---
EXAM DESCRIPTION: Sarah Single View05/28/2018 6:15 pm CLINICAL HISTORY: Preop COMPARISON: December 2017 FINDINGS: The lungs appear clear of acute infiltrate. The heart is borderline enlarged IMPRESSION: No acute abnormalities displayed
--- NOTE | 2018-05-28 18:59 | HP ---
Date of Admission: 05/27/2018 Chief Complaint: Pain, right hand. History Of Present Illness: A 62-year-old female who was brought to the office with the swelling and redness of right hand. She was unable to bend the middle finger of the right hand, and there was ab scess formation on the dorsum of the finger with a possibility of tenosynovitis and cellulitis as wel l as type 2 diabetes and renal failure. The patient is admitted for IV antibiotic therapy. The ernie ent, according to her, had problem with vancomycin in the past, which will not be administered. The patient denied any history of trauma to the hand. Past Medical History: Positive for type 2 diabetes, chronic renal failure, ischemic heart disease, c ongestive heart failure, hypertension, hyperlipidemia. She also has following surgical history: The patient has history of coronary angioplasty, hysterectomy, thyroidectomy, right foot surgery, gallbl adder surgery. Family History: Diabetes present. Personal History: Allergic to prednisone, vancomycin as per the patient's history. Home Medications: Please refer to the chart. Review of Systems: The patient denied any fever, chills, or rigors. No chest pain. Physical Examination: General: Revealed a 62-year-old female in moderate to severe pain. HEENT: Negative. Neck: Supple. JVD negative. Chest: Few scattered wheezes. Heart: Regular. Abdomen: Pendulous, nontender. Extremities: There is diffuse area of redness starting from the distal interphalangeal joint with ab scess formation to the distal hand. She is unable to bend her middle finger and cannot make a fist. There is no lymphadenitis. She has evidence of right foot surgery. Pulses are diminished bilateral ly. Assessment: 1.Cellulitis abscess, right hand. 2.Type 2 diabetes requiring insulin. 3.Hypertension. 4.Congestive heart failure. 5.Coronary artery disease. 6.Hyperlipidemia. 7.Diabetic, chronic renal failure. Plan: The patient is started on clindamycin, and a hand surgery consult has been done. The patient very likely will need I and D and possibly involved tendon sheath may have to be surgically drained. The patient will be started on her regular medicines as well as her insulin sliding scale. ANANDK/RODGERL Voice ID: [id number]
[2018-05-28] MEDS: INSULIN GLARGINE 100 UNITS/ML SQ SCH (21:14)
[2018-05-28] MEDS: ZOLPIDEM TARTRATE 10 MG TABLET PO SCH (21:15)
[2018-05-28] MEDS: ATORVASTATIN 80 MG TAB PO SCH (21:15)
[2018-05-29] MEDS: CLINDAMYCIN INJ 600 MG in NA CHLORIDE 0.9% 50 ML IV SCH ×4 (00:47→17:12)
[2018-05-29] MEDS: MORPHINE 4 MG/ML SYR IV PRN (00:56)
[2018-05-29] MEDS: NA CHLORIDE 0.9% 1,000 ML IV SCH ×3 (04:00→21:00)
--- NOTE | 2018-05-29 04:24 | CON ---
NEPHOROLOGY CONSULATION DOS 05/28/2018 Chief Complaint: Elevated BUN and creatinine. History Of Present Illness: Nephrology consultation was requested for abnormal renal function test. The patient has multiple medical problems including history of diabetes mellitus, uncontrolled diabetes with hyperglycemia. The blood work on arrival to the hospital showed elevated BUN up to 61, creatinine 2.4. Sodium , potassium 4.1, chloride 98, CO2 of 27, albumin level 3.2, and calcium 8.5. The patient has history of chronic kidney disease. Baseline creatinine level was 1.9 in December 2017. Recently done blood work on admission showed creatinine of 2.4. Back in 2012, creatinine level was ranging from 1.08 to 1.6. The patient had a renal ultrasound done back in 2017. It showed increased echotexture consistent with parenchymal renal disease. Right kidney was 12 cm in length and left kidney 12 cm in length. The patient has nonoliguric urine output and electrolytes in acceptable range. There is mild hyponatremia due to ongoing hyperglycemia. The patient is admitted to the hospital because of swelling and redness of the right hand. She was unable to bend the middle finger of right hand. There was abscess formation on the dorsum of the finger with possibility of tenosynovitis and cellulitis as well as the patient was found to have a worsening of the renal function with acute on chronic kidney injury. The patient is started on IV antibiotics for complicated cellulitis and the patient is on vancomycin. Acute on chronic kidney injury, elevated BUN. There is some element of prerenal azotemia. The patient does not have urinary retention at this point. Review of Systems: Constitutional: Denies fever, chills. Eyes: Denies vision changes. Ears, Nose, Mouth and Throat: Denies sore throat, earache. Respiratory: Denies PND, orthopnea. Cardiovascular: Denies chest pain, palpitation. GI: Denies nausea, vomiting. : Denies dysuria, hematuria. Musculoskeletal: Has swelling, abscess formation involving right hand. All other systems reviewed and all are negative. Past Medical History: Diabetes mellitus type 2, obesity, chronic kidney disease stage 3, ischemic heart disease, congestive heart failure, diastolic dysfunction, chronic hypertension, hyperlipidemia. Past Surgical History: Coronary angioplasty, hysterectomy, thyroidectomy, right foot surgery, gallbladder surgery. Social History: Denies tobacco, alcohol, or illicit drugs. Family History: No kidney disease in the family. Physical Examination: General: The patient is awake, alert, follows commands. Eyes: Anicteric sclerae. EOMI. Ears, Nose, Mouth and Throat: Oral mucosa moist. No pallor. Neck: Supple. No JVD. No bruits. Lungs: Clear to auscultation bilaterally. Heart: S1, S2. Abdomen: Soft, benign, obese, nontender. No rebound. No guarding. No CVA tenderness. Extremities: There is a diffuse area of redness starting from the distal interphalangeal joint with abscess formation to the distal hand. The patient is unable to bend the middle finger. Lab Work: Sodium , potassium 4.1, chloride 98, CO2 of 27, BUN 61, creatinine 2.4, total bilirubin 0.7, albumin is 3.2. Impression And Plan: 1. Acute on chronic kidney injury, mild prerenal azotemia. Urinalysis did not show blood. There is positive nitrite, leukocyte esterase is 2 plus. There is no evidence of microscopic hematuria. There is elevated leukocytosis. The microbiology test was obtained and to rule out bacteremia and results are pending. Urine clean catch results pending. 2. The patient has cellulitis and plastic surgeon will evaluate the patient. Continue antibiotics. Monitor vancomycin toxicity panel. 3. The patient likely has diabetic kidney disease and hypertensive kidney disease. The patient was found to have 2 plus protein. Plan is to check for an evidence of significant proteinuria and plan further workup accordingly. Urinalysis is pending to assess for urinary tract infection. 4. Hypertension. Continue blood pressure medication. 5. Prerenal azotemia. The patient will continue p.o. hydration. The patient may need to start IV fluids. EMERSON/HOA Voice ID: [id number] Report ID: [id number] ELAN
[2018-05-29] MEDS: LEVOTHYROXINE SOD 0.125 MG TAB PO SCH (06:11)
[2018-05-29 06:42] LABS: Potassium 4.2 mmol/L (3.5-5.1)
[2018-05-29] MEDS: INSULIN -REGULAR HUMAN 50 UNIT/0.5 ML ML SQ SCH ×4 (07:30→21:00)
[2018-05-29] MEDS: ASPIRIN 81 MG CHEWABLE TABLET PO SCH (09:00)
[2018-05-29] MEDS: GABAPENTIN 100 MG CAP PO SCH ×2 (09:00→22:31)
[2018-05-29] MEDS: CALCIUM CARB 500MG/VIT D 200 IU TAB PO SCH ×2 (09:00→22:32)
[2018-05-29] MEDS: FUROSEMIDE 40 MG TABLET PO SCH (09:00)
[2018-05-29] MEDS: CLOPIDOGREL 75 MG TABLET PO SCH (09:00)
[2018-05-29] MEDS: METOPROLOL XL 25 MG TAB PO SCH (09:04)
[2018-05-29] MEDS: AMLODIPINE 5 MG TAB PO SCH (09:05)
[2018-05-29] MEDS ORDERED: MIDAZOLAM HCL 2 MG/2 ML INJ ONE (12:25)
[2018-05-29] MEDS ORDERED: FENTANYL CITR 100 MCG/2 ML ONE (12:28)
[2018-05-29] MEDS ORDERED: LIDOCAINE 2% MPF 5 ML VIAL ONE (12:28)
[2018-05-29] MEDS ORDERED: PROPOFOL 200 MG/20 ML VIAL IV ONE (12:28)
[2018-05-29] MEDS: MORPHINE 4 MG/ML SYR ONE ×2 (13:40→13:45)
[2018-05-29] MEDS: HYDROCODONE/APAP 5/325 MG TAB PO PRN ×2 (15:17→22:32)
--- NOTE | 2018-05-29 18:06 | CON ---
History Of Present Illness: A 62-year-old, white female, right-hand dominant, has infection of the right middle finger for seven days. Past Medical History: Diabetes, high blood pressure, hypertension, and heart disease. Past Surgical History: She has previous foot surgery, gallbladder and thyroid surgeries as a child. Social History: Does not smoke. Does not drink. She is on vancoymsin and weights_ 295 pounds. The right hand has an elevated mass approximately 1 cm in diameter over the DIP dorsal surface. Center necrotic area surrounding erythema. Assessment: Infection of the right hand. Plan: Excision. JACLYN/HOA Voice ID: [id number] Report ID: [id number] ELAN
--- NOTE | 2018-05-29 18:57 | OP ---
Surgeon: Ronny Pozo MD Preoperative Diagnosis: Infection of the right middle finger. Postoperative Diagnosis: Infection of the right middle finger. Procedures Performed: Debridement of skin and subcutaneous tissue. Incision and drainage of abscess. Anesthesia: General. Procedure In Detail: After satisfactory induction of general anesthesia, the hand was prepped with Betadine scrub, Betadine paint, dry sterile drapes applied in usual manner. The arm was elevated and exsanguinated with an Esmarch. Tourniquet was inflated to 250 mmHg. Hand placed on the rotolock table. An ellipse incision was made around the transverse over the dorsum of the DIP. Pus was encountered. Cultures were taken, appears to be MRSA. The proximal to distal extension was made. The flaps were elevated. Dissection was carried down to the extensor tendon, the main area focused was at the DIP joint radial surface as well as likely bony exostosis palpable on the 6th extensor. After curetted and jet lavaged, the tourniquet was released and then electrocautery was used for hemostasis. The wound was packed with a quarter- inch Nu Gauze and 2-inch Armond. The patient tolerated the procedure well, returned to Recovery. JACLYN/HOA Voice ID: [id number] Report ID: [id number] ELAN
[2018-05-29] MEDS: INSULIN GLARGINE 100 UNITS/ML SQ SCH (21:00)
[2018-05-29] MEDS: ATORVASTATIN 80 MG TAB PO SCH (22:31)
[2018-05-29] MEDS: ZOLPIDEM TARTRATE 10 MG TABLET PO SCH (22:32)
--- NOTE | 2018-05-29 23:42 | PN ---
Date of Progress Note: 05/29/2018 Chief Complaint: Elevated BUN and creatinine. Subjective: The patient has multiple medical problems including history of diabetes, uncontrolled di abetes with hyperglycemia. BUN is 61, creatinine 2.4. Electrolytes did not show metabolic acidosis. Potassium level is in good control. Baseline creatinine level is 1.9. The patient developed acute on chronic kidney injury, nonoliguric. Renal ultrasound back in 2007 does not show obstructive urop athy. There is a medical renal disease with increased echotexture. The patient was found to have mild hyponatremia due to ongoing hyperglycemia. The patient presented to the hospital because of swelling and redness of the right hand. The patient is to have incision and drainage of the right hand abscess. Review of Systems: Denies fever, chills. Physical Examination: Lungs: Clear to auscultation bilaterally. Heart: S1, S2. Abdomen: Soft, benign. Extremities: Slight edema. Lab Work: Hemoglobin 12.0, WBC 10.83, and platelet count 273,000. Sodium 137, potassium 4.2, chlori de 101, CO2 30, BUN 65, creatinine 2.6, calcium 8.1. Impression And Plan: 1.Acute kidney injury, nonoliguric, associated with prerenal azotemia in setting of diabetic kidney disease with hypertensive kidney disease. Continue IV fluids for hydration. The patient currently i s on antibiotics for cellulitis of the right hand with abscess. The patient will have incision and d rainage and adjust antibiotics to renal function. Continue IV fluid as started. 2.Hypertension. Blood pressure controlled. BILL inhibitor on hold. The patient is not a candidate for metformin. The patient will continue clindamycin. She has allergic reaction to vancomycin. Van comycin has not been started. 3.Urinary tract infection. Urine culture pending. Adjust antibiotics according to urine culture. EB/MODL Voice ID: [id number] Report ID: [id number]
[2018-05-30] MEDS: CLINDAMYCIN INJ 600 MG in NA CHLORIDE 0.9% 50 ML IV SCH ×5 (00:49→23:32)
[2018-05-30] MEDS: HYDROCODONE/APAP 5/325 MG TAB PO PRN ×5 (03:31→23:37)
[2018-05-30] MEDS: LEVOTHYROXINE SOD 0.125 MG TAB PO SCH (05:40)
[2018-05-30 06:53] LABS: Potassium 4.1 mmol/L (3.5-5.1)
[2018-05-30] MEDS: INSULIN -REGULAR HUMAN 50 UNIT/0.5 ML ML SQ SCH ×4 (07:30→20:57)
[2018-05-30] MEDS: FUROSEMIDE 40 MG TABLET PO SCH (09:00)
[2018-05-30] MEDS: ASPIRIN 81 MG CHEWABLE TABLET PO SCH (09:00)
[2018-05-30] MEDS: CLOPIDOGREL 75 MG TABLET PO SCH (09:00)
[2018-05-30] MEDS: GABAPENTIN 100 MG CAP PO SCH ×2 (09:28→20:58)
[2018-05-30] MEDS: METOPROLOL XL 25 MG TAB PO SCH (09:28)
[2018-05-30] MEDS: CALCIUM CARB 500MG/VIT D 200 IU TAB PO SCH ×2 (09:28→20:58)
[2018-05-30] MEDS: AMLODIPINE 5 MG TAB PO SCH (09:30)
--- NOTE | 2018-05-30 13:34 | PN ---
Date of Progress Note: 05/29/2018 Subjective: The patient had surgery. There is mild bleeding from the surgical site. However, she h ad significant relief from the pain. The patient is afebrile, will be continued on the same antibiot ics. Pending the culture and sensitivity report. TYLER/HOA Voice ID: [id number] Report ID: [id number]
[2018-05-30] MEDS: NA CHLORIDE 0.9% 1,000 ML IV SCH (18:58)
[2018-05-30] MEDS ORDERED: CALCIUM GLUC 10% INJ 9.3 MEQ in NA CHLORIDE 0.9% 100 ML IV ONE (19:14)
[2018-05-30] MEDS: INSULIN GLARGINE 100 UNITS/ML SQ SCH (20:56)
[2018-05-30] MEDS: ATORVASTATIN 80 MG TAB PO SCH (20:57)
--- NOTE | 2018-05-30 21:04 | PN ---
Subjective: The patient is afebrile. There is still small amount of bleeding from the surgical site . The patient is on hold for Plavix due to active bleeding. The patient's cultures are not reported yet. Meanwhile, the patient will be continued on the same antibiotic. TYLER/HOA Voice ID: [id number] Report ID: [id number]
--- NOTE | 2018-05-30 21:10 | RAD REPORT ---
EXAM DESCRIPTION: US - Renal Ultrasound-Complete - 05/30/2018 8:59 pm CLINICAL HISTORY: Chronic kidney disease COMPARISON: December 2017 FINDINGS: The right kidney measures 11.6 x 5.6 x 6.4 cm. The left kidney measures 11.2 x 5.1 x 5.5 cm. Adjusting for differences in technique and image selection, no change in renal size from December 2017. Cortical thickness is normal. There is increased echogenicity typical for medical renal disease . This is also similar to the comparison. No hydronephrosis or suspicious renal mass. No bladder wall thickening or mass. No intraluminal stone or mass. IMPRESSION: Medical renal disease is evident with echogenicity similar to December 2017. No hydronephrosis, mass or other acute finding.
[2018-05-30] MEDS: ZOLPIDEM TARTRATE 10 MG TABLET PO SCH (22:08)
[2018-05-30] MEDS ORDERED: CALCIUM GLUCONATE 1 GM IVPB 2 GM/100 ML BAG IV ONE (22:15)
--- NOTE | 2018-05-31 00:55 | PN ---
Date of Progress Note: 05/30/2018 Subjective: The patient is still having bleeding from the wound . We will initiate Lasix for now, continue gentle hydration. Trace lower extremity edema. Creatinine likely improved to 2.2. The patient is cleared for discharge from Nephrology point of view. Objective: Vital signs: Temperature 97.7, pulse rate 69, blood pressure 119/ 51. General: Awake, alert, oriented x3. No acute distress. Obese. Chest: Clear to auscultation bilaterally. Heart: Regular rate and rhythm. Normal S1, S2. Abdomen: Soft, nontender. Extremities: Trace edema. Assessment And Plan: Acute kidney injury on chronic kidney disease. Creatinine at baseline 1.9 to 2.0, in ER 2.4, improved to 2.2. Previous ultrasound showed echogenic kidney. UA; +2 protein, no blood. Chronic kidney disease, likely diabetes mellitus. Hold the IV fluid. Lasix if edema. Diabetes mellitus. Per the primary team index finger ulcer Continue antibiotic. Hypertension controlled. The patient is cleared for discharge from Nephrology point of view. NELA/HOA Voice ID: [id number] Report ID: [id number] ELAN
[2018-05-31] MEDS: HYDROCODONE/APAP 5/325 MG TAB PO PRN ×3 (03:10→23:16)
[2018-05-31] MEDS: LEVOTHYROXINE SOD 0.125 MG TAB PO SCH (05:35)
[2018-05-31] MEDS: CLINDAMYCIN INJ 600 MG in NA CHLORIDE 0.9% 50 ML IV SCH ×4 (05:35→23:16)
[2018-05-31] MEDS: INSULIN -REGULAR HUMAN 50 UNIT/0.5 ML ML SQ SCH ×4 (07:30→22:07)
[2018-05-31] MEDS: AMLODIPINE 5 MG TAB PO SCH (08:24)
[2018-05-31] MEDS: METOPROLOL XL 25 MG TAB PO SCH (08:24)
[2018-05-31] MEDS: CLOPIDOGREL 75 MG TABLET PO SCH (08:25)
[2018-05-31] MEDS: GABAPENTIN 100 MG CAP PO SCH ×2 (08:25→22:05)
[2018-05-31] MEDS: CALCIUM CARB 500MG/VIT D 200 IU TAB PO SCH ×2 (08:25→22:05)
[2018-05-31] MEDS: ASPIRIN 81 MG CHEWABLE TABLET PO SCH (08:26)
--- NOTE | 2018-05-31 15:26 | PN ---
The patient's wound is being packed b.i.d. Some slight bleeding was expected. We will plan to it until Sunday. At that time, we will debride and close the wound. AD Voice ID: [id number] Report ID: [id number] MTDD
--- NOTE | 2018-05-31 18:23 | PN ---
Date of Progress Note: 05/31/2018 Subjective: The patient with CKD stage 3, diabetes, was admitted for right index finger infection, s tatus post I and D. Creatinine 2.4 on admission, improved to 2.2, baseline around 2. We will discon tinue IV fluids and Lasix for now. The patient with trace edema. We will continue monitor. To cont inue hospitalization until Sunday. Objective: General: Awake, alert, oriented x3, not in distress. obese. Chest: Clear to auscultation bilaterally. No rales or wheezes. Heart: Regular rate and rhythm. Normal S1, S2. Abdomen: Soft and nontender. Extremities: Right middle finger dressing. Bilateral lower extremity edema trace. Laboratory Data: No available labs for today. Assessment And Plan: 1.Acute on chronic kidney disease. Creatinine at baseline about 1.9 to 2. On admission, creatinine 2.4, improved to 2.2, likely dehydration versus septic glomerulonephritis. Patient right now with t race edema. We will hold Lasix and IV fluids. Ultrasound showed echogenic kidneys. 2.Diabetes mellitus, controlled, as per primary. Episode of hypoglycemia. 3.Middle index finger infection. Surgery followup. On clindamycin. Continue to monitor. 4.Hypocalcemia, replaced. 5.Hypertension, controlled. Continue to monitor. NELA/HOA Voice ID: [id number] Report ID: [id number]
[2018-05-31] MEDS: INSULIN GLARGINE 100 UNITS/ML SQ SCH (21:00)
[2018-05-31] MEDS: ATORVASTATIN 80 MG TAB PO SCH (22:05)
[2018-05-31] MEDS: ZOLPIDEM TARTRATE 10 MG TABLET PO SCH (22:06)
--- NOTE | 2018-05-31 23:43 | PN ---
The patient is doing better today. The bleeding from the surgical site is less. Already spoke to Dr Cedric Pozo's office and they would like to do revision and closure of the wound Dianne. Meanwhile the patient will be continued on IV antibiotics. TYLER/HOA Voice ID: [id number] Report ID: [id number]
[2018-06-01] MEDS: CLINDAMYCIN INJ 600 MG in NA CHLORIDE 0.9% 50 ML IV SCH ×4 (05:17→23:30)
[2018-06-01] MEDS: LEVOTHYROXINE SOD 0.125 MG TAB PO SCH (05:18)
[2018-06-01] MEDS: HYDROCODONE/APAP 5/325 MG TAB PO PRN ×4 (05:40→22:11)
[2018-06-01] MEDS: INSULIN -REGULAR HUMAN 50 UNIT/0.5 ML ML SQ SCH ×4 (07:30→22:13)
[2018-06-01] MEDS: AMLODIPINE 5 MG TAB PO SCH (09:07)
[2018-06-01] MEDS: CLOPIDOGREL 75 MG TABLET PO SCH (09:07)
[2018-06-01] MEDS: ASPIRIN 81 MG CHEWABLE TABLET PO SCH (09:07)
[2018-06-01] MEDS: GABAPENTIN 100 MG CAP PO SCH ×2 (09:08→22:12)
[2018-06-01] MEDS: METOPROLOL XL 25 MG TAB PO SCH (09:08)
[2018-06-01] MEDS: ENOXAPARIN 30 MG/0.3 ML SQ SCH (09:20)
[2018-06-01] MEDS: CALCIUM CARB 500MG/VIT D 200 IU TAB PO SCH ×2 (10:03→22:12)
[2018-06-01] MEDS: FUROSEMIDE 40 MG/4 ML VIAL IV SCH (13:52)
--- NOTE | 2018-06-01 20:56 | RAD REPORT ---
EXAM DESCRIPTION: US - Extremity Venous Uni Ltd - 06/01/2018 8:47 pm CLINICAL HISTORY: check for DVT Arm pain and swelling COMPARISON: <Comparisons> FINDINGS: Left upper extremity venous system was interrogated with Doppler technique. Normal flow, c ompressibility and augmentation was noted. There is no DVT present. IMPRESSION: No evidence of left upper extremity deep venous thrombosis.
[2018-06-01] MEDS: ATORVASTATIN 80 MG TAB PO SCH (22:11)
[2018-06-01] MEDS: ZOLPIDEM TARTRATE 10 MG TABLET PO SCH (22:11)
[2018-06-01] MEDS: INSULIN GLARGINE 100 UNITS/ML SQ SCH (22:13)
[2018-06-02] MEDS: HYDROCODONE/APAP 5/325 MG TAB PO PRN ×2 (05:12→21:03)
[2018-06-02] MEDS: CLINDAMYCIN INJ 600 MG in NA CHLORIDE 0.9% 50 ML IV SCH (05:12)
[2018-06-02] MEDS: LEVOTHYROXINE SOD 0.125 MG TAB PO SCH (05:27)
[2018-06-02 06:20] LABS: Potassium 4.4 mmol/L (3.5-5.1)
[2018-06-02] MEDS: INSULIN -REGULAR HUMAN 50 UNIT/0.5 ML ML SQ SCH ×4 (07:30→20:58)
--- NOTE | 2018-06-02 07:37 | PN ---
Date of Progress Note: 06/01/2018 Chief Complaint: Acute kidney injury, nonoliguric, associated with prerenal azotemia in the setting of diabetic kidney disease with hypertensive kidney disease. The patient has adequate p.o. fluid intake. She developed left upper extremity swelling, and she is undergoing workup to rule out DVT. The patient has generalized edema and Lasix was resumed today. The patient has persistent hyperazotemia, BUN is 61 and creatinine 2.4. Blood work showed BUN 59, cr eatinine 2.21, sodium 135, potassium 4.1, chloride 102, CO2 26, calcium 7.5. Review of Systems: Denies fever, chills. Denies chest pain, palpitation, cough, hemoptysis. Physical Examination: Lungs: Clear to auscultation bilaterally. Heart: S1, S2. Abdomen: Soft, benign. Extremities: Left upper extremity swelling. Dressing over right hand, status post debridement. The patient had procedure done for right hand abscess. Impression And Plan: 1.Acute kidney injury, nonoliguric, associated with prerenal azotemia in the setting of diabetic kid junior disease, chronic kidney disease stage 3. Continue adequate hydration. The patient although will require diuretic at this point for swelling control and volemia control. 2.Hypertension, blood pressure controlled. BILL inhibitor is on hold. The patient is not a candidat e for metformin due to the fact that she has chronic kidney disease stage 3. 3.The patient is allergic to vancomycin. She will continue clindamycin for treatment of right hand abscess. She underwent debridement. 4.Urinary tract infection. Continue antibiotics. Adjust treatment according to renal function. Bl ood work will be obtained to check renal panel. 5.Edema of the left hand and arm. The patient is undergoing workup to rule out deep venous thrombos is. EB/MODL Voice ID: [id number] Report ID: [id number]
[2018-06-02] MEDS: CLOPIDOGREL 75 MG TABLET PO SCH (09:39)
[2018-06-02] MEDS: CALCIUM CARB 500MG/VIT D 200 IU TAB PO SCH ×2 (09:39→20:58)
[2018-06-02] MEDS: AMLODIPINE 5 MG TAB PO SCH (09:39)
[2018-06-02] MEDS: METOPROLOL XL 25 MG TAB PO SCH (09:40)
[2018-06-02] MEDS: ASPIRIN 81 MG CHEWABLE TABLET PO SCH (09:40)
[2018-06-02] MEDS: GABAPENTIN 100 MG CAP PO SCH ×2 (09:41→20:58)
[2018-06-02] MEDS: FUROSEMIDE 40 MG/4 ML VIAL IV SCH ×2 (09:41→17:05)
[2018-06-02] MEDS: BISACODYL E.C. 5 MG TAB PO PRN (09:41)
[2018-06-02] MEDS: ENOXAPARIN 30 MG/0.3 ML SQ SCH (09:41)
[2018-06-02] MEDS: ATORVASTATIN 80 MG TAB PO SCH (20:57)
[2018-06-02] MEDS: ZOLPIDEM TARTRATE 10 MG TABLET PO SCH (20:58)
[2018-06-02] MEDS: INSULIN GLARGINE 100 UNITS/ML SQ SCH (21:00)
[2018-06-02] MEDS: SMZ./TMP. 800/160 MG TABLET PO SCH (21:03)
--- NOTE | 2018-06-03 03:58 | PN ---
Date of Progress Note: 06/02/2018 Chief Complaint: Acute kidney injury, nonoliguric, associated with prerenal azotemia in setting of d iabetic kidney disease with hypertensive kidney disease. The patient is tolerating p.o. intake. She developed edema and started on Lasix. She responded to Lasix. Urine output has improved . The patient is on low-sodium diet to prevent anasarca. Patient underwent debridement of the right hand abscess. Review of Systems: Denies fever, chills. Physical Examination: Lungs: Clear to auscultation bilaterally. Heart: S1, S2. Abdomen: Soft, benign. Extremities: Slight edema. Impression And Plan: 1.Acute kidney injury, nonoliguric, associated with prerenal azotemia. Avoid nephrotoxic medication . Continue hydration by mouth. IV fluids were stopped because of swelling. Patient received Lasix. Continue to monitor fluid balance. 2.Hypertension. Blood pressure controlled. BILL inhibitor on hold due to acute kidney injury. 3. the patient is allergic to vancomycin. She will continue clindamycin for treatment of the right hand abscess. The patient underwent debridement. Continue wound care. 4.Urinary tract infection. Continue antibiotics and adjust treatment according to renal function. Blood work was obtained to check renal panel. 5.Edema of the left hand and arm. The patient is undergoing workup to rule out deep vein thrombosis. Doppler test was negative for deep vein thrombosis. EMERSON/MODL Voice ID: [id number] Report ID: [id number]
[2018-06-03] MEDS: HYDROCODONE/APAP 5/325 MG TAB PO PRN ×2 (05:12→21:47)
[2018-06-03] MEDS: LEVOTHYROXINE SOD 0.125 MG TAB PO SCH (05:13)
[2018-06-03] MEDS: INSULIN -REGULAR HUMAN 50 UNIT/0.5 ML ML SQ SCH ×4 (07:30→21:44)
[2018-06-03] MEDS: FUROSEMIDE 40 MG/4 ML VIAL IV SCH ×2 (09:28→17:36)
[2018-06-03] MEDS: METOPROLOL XL 25 MG TAB PO SCH (09:28)
[2018-06-03] MEDS: CLOPIDOGREL 75 MG TABLET PO SCH (09:29)
[2018-06-03] MEDS: AMLODIPINE 5 MG TAB PO SCH (09:29)
[2018-06-03] MEDS: SMZ./TMP. 800/160 MG TABLET PO SCH ×2 (09:29→21:47)
[2018-06-03] MEDS: ENOXAPARIN 30 MG/0.3 ML SQ SCH (09:29)
[2018-06-03] MEDS: CALCIUM CARB 500MG/VIT D 200 IU TAB PO SCH ×2 (09:30→21:47)
[2018-06-03] MEDS: GABAPENTIN 100 MG CAP PO SCH ×2 (09:30→21:46)
[2018-06-03] MEDS: ASPIRIN 81 MG CHEWABLE TABLET PO SCH (09:30)
--- NOTE | 2018-06-03 12:20 | PN ---
The patient is doing better. There is no active bleeding. Her MRSA is sensitive to Bactrim. IV ant ibiotic has been changed to oral Bactrim. The patient is afebrile. As planned, she should be able t o have redoing of the wound debridement and closure tomorrow, after which discharge plan will be impl emented. TYLER/HOA Voice ID: [id number] Report ID: [id number]
[2018-06-03] MEDS: BISACODYL E.C. 5 MG TAB PO PRN (12:30)
--- NOTE | 2018-06-03 16:01 | PN ---
The patient's wound is improving. Planned surgery tomorrow, n.p.o. at midnight. Debride and close, possibly skin graft or flap. JACLYN/HOA Voice ID: [id number] Report ID: [id number]
[2018-06-03] MEDS: INSULIN GLARGINE 100 UNITS/ML SQ SCH (21:45)
[2018-06-03] MEDS: ATORVASTATIN 80 MG TAB PO SCH (21:46)
[2018-06-03] MEDS: ZOLPIDEM TARTRATE 10 MG TABLET PO SCH (21:47)
--- NOTE | 2018-06-04 02:51 | PN ---
Date of Progress Note: 06/03/2018 Chief Complaint: Prerenal azotemia, chronic kidney disease stage 3, fluid overload, edema. The ernie ent was started on Lasix to control leg edema. She primarily has IV fluids to prevent renal hypoperf usion. The patient is admitted for cellulitis and abscess, underwent debridement and tomorrow, she i s scheduled to have wound closure. Review of Systems: Denies fever or chills. Physical Examination: LUNGS: Clear to auscultation bilaterally. HEART: S1 and S2. ABDOMEN: Soft. Benign. Obese. Nontender. No rebound. No guarding. EXTREMITIES: Minimal edema. Impression And Plan: 1.Acute kidney injury, nonoliguric, associated with prerenal azotemia. Avoid nephrotoxic medication . Continue hydration by mouth. IV fluids were stopped because of swelling of the legs. The patient received Lasix. Continue to monitor fluid balance. 2.Hypertension. Blood pressure controlled. BILL inhibitor is on hold due to acute kidney injury. T he patient has history of allergy to vancomycin. Continue clindamycin for treatment of right hand ab scess. Continue debridement and wound care. 3.Urinary tract infection. The patient will continue current antibiotics. 4.Edema of left hand and arm. She was ruled out for deep vein thrombosis and swelling has subsided after treatment with Lasix. EMERSON/HOA Voice ID: [id number] Report ID: [id number]
[2018-06-04] MEDS: LEVOTHYROXINE SOD 0.125 MG TAB PO SCH (05:29)
[2018-06-04] MEDS: HYDROCODONE/APAP 5/325 MG TAB PO PRN (06:30)
[2018-06-04] MEDS: INSULIN -REGULAR HUMAN 50 UNIT/0.5 ML ML SQ SCH ×2 (07:30→11:30)
[2018-06-04] MEDS: ASPIRIN 81 MG CHEWABLE TABLET PO SCH (09:00)
[2018-06-04] MEDS: CLOPIDOGREL 75 MG TABLET PO SCH (09:00)
[2018-06-04] MEDS: AMLODIPINE 5 MG TAB PO SCH (09:00)
[2018-06-04] MEDS: METOPROLOL XL 25 MG TAB PO SCH (09:00)
[2018-06-04] MEDS: FUROSEMIDE 40 MG/4 ML VIAL IV SCH ×2 (09:00→12:42)
[2018-06-04] MEDS: CALCIUM CARB 500MG/VIT D 200 IU TAB PO SCH (09:00)
[2018-06-04] MEDS ORDERED: PROPOFOL 200 MG/20 ML VIAL IV ONE ×2 (09:33→10:07)
[2018-06-04] MEDS ORDERED: LIDOCAINE 2% MPF 5 ML VIAL ONE (09:34)
[2018-06-04] MEDS ORDERED: MIDAZOLAM HCL 2 MG/2 ML INJ ONE (09:34)
[2018-06-04] MEDS ORDERED: FENTANYL CITR 100 MCG/2 ML ONE (09:34)
[2018-06-04] MEDS ORDERED: ONDANSETRON 4 MG/2 ML VIAL ONE ×2 (09:35→09:44)
[2018-06-04] MEDS ORDERED: NA CHLORIDE 0.9% 1,000 ML ONE (09:36)
[2018-06-04] MEDS: MEPERIDINE HCL 50 MG/ML AMP ONE ×3 (10:50→11:00)
[2018-06-04 11:16] VITALS: O2SAT 98
[2018-06-04] MEDS: ENOXAPARIN 30 MG/0.3 ML SQ SCH (12:40)
[2018-06-04] MEDS: SMZ./TMP. 800/160 MG TABLET PO SCH (12:43)
[2018-06-04] MEDS: GABAPENTIN 100 MG CAP PO SCH (12:44)
[2018-06-04 12:46] VITALS: TEMP 97.3
[2018-06-04 12:48] VITALS: BP 107/53
--- NOTE | 2018-06-04 17:54 | PN ---
Date of Progress Note: 06/04/2018 Subjective: Patient is status post debridement for her finger. Physical Examination: Vital Signs: Blood pressure 107/53, pulse of 68. Chest: Clear to auscultation. Heart: S1, S2. Regular. Systolic murmur. Abdomen: Soft, nontender. Extremities: Less edema. Laboratory Data: WBC 10.8, H and H 12/35.9, platelets 273. Sodium 138, potassium 4.3, bicarb 28, BU N 57, creatinine of 2, GFR of 25. Medications: Current medications the patient on include amlodipine 5 mg, atorvastatin, metoprolol, R anexa, Lovenox, gabapentin, Lasix 40 b.i.d., insulin, bisacodyl. Assessment And Plan: 1.Acute kidney injury on chronic kidney disease secondary to toxic acute tubular necrosis, prerenal, cardiorenal, on recovery back to close to baseline, still on the over-volume side. We will continue diuresis. 2.Hypertension, currently blood pressure on the lower side. I am going to go ahead and discontinue Norvasc, and we will follow up. 3.Finger infection status post debridement. Continue to follow up with the primary. FAITH/HOA Voice ID: [id number] Report ID: [id number]
--- NOTE | 2018-06-05 08:31 | OP ---
Surgeon: Ronny Pozo MD Drug Room Operator: None. Preoperative Diagnosis: Open wound of the right middle finger. Postoperative Diagnosis: Open wound of the right middle finger. Procedure Performed: Debridement of skin and subcutaneous tissue, flap closure. Anesthesia: General. Procedure In Detail: After satisfactory induction of general anesthesia, the right hand was prepped with Betadine scrub, Betadine paint, dry sterile drapes applied in usual manner. The arm was elevate d, exsanguinated with an Esmarch, tourniquet was inflated to 250 mmHg. Hand placed on a Rotalok tabl e. Tenotomy scissors and forceps were used to debride the skin and subcutaneous tissue as needed. T he wound was curetted and then jet lavaged, irrigated with 3 L of dilute Betadine solution. Tourniqu et was released. Wound was closed with 4-0 Prolene simple sutures with flap advancement. Dressing o f Xeroform, 2-inch Armond. The patient tolerated the procedure well and returned to Recovery. JACLYN/HOA Voice ID: [id number] Report ID: [id number]
== END 2018-06-04 14:22 | disposition home or self-care (01) | DRG 573 ==
LOC: 2ND 14:18
PROVIDERS: ADMIT Internal Medicine; ATTEND Internal Medicine
PROC: 0H9FXZZ Drainage of Right Hand Skin, External Approach (ICD-10-PCS; 2018-05-29)
PROC: 0JBJ0ZZ Excision of Right Hand Subcutaneous Tissue and Fascia, Open Approach (ICD-10-PCS; 2018-06-04)
PROC: 0HXFXZZ Transfer Right Hand Skin, External Approach (ICD-10-PCS; principal; 2018-06-04 14:00)
DX: L02.511 Cutaneous abscess of right hand (principal); N17.0 Acute kidney failure with tubular necrosis; L03.113 Cellulitis of right upper limb; I13.0 Hypertensive heart and chronic kidney disease with heart failure and stage 1 through stage 4 chronic kidney disease, or unspecified chronic kidney disease; I50.30 Unspecified diastolic (congestive) heart failure; E87.1 Hypo-osmolality and hyponatremia; N39.0 Urinary tract infection, site not specified; I25.10 Atherosclerotic heart disease of native coronary artery without angina pectoris; E78.5 Hyperlipidemia, unspecified; E11.65 Type 2 diabetes mellitus with hyperglycemia; E11.22 Type 2 diabetes mellitus with diabetic chronic kidney disease; N18.3 Chronic kidney disease, stage 3 (moderate); E83.51 Hypocalcemia
CPT/HCPCS: 36415; 71045; 76770; 80048; 80053; 81003; 81015; 82947; 82962; 85025; 87040; 87070; 87075; 87077; 87086; 87088; 87186; 87205; 88305; 88312; 93971; J0610; J1650; J1940; J2175; J2250; J2270; J2405; J2704; J3010; J7030

== ENCOUNTER 2018-07-12 09:32 | Day surgery (SDC) | payer OTHER, SELFPAY ==
[2018-07-12] MEDS ORDERED: FENTANYL CITR 100 MCG/2 ML ONE (09:57)
[2018-07-12] MEDS ORDERED: PROPOFOL 200 MG/20 ML VIAL IV ONE ×2 (09:57→10:32)
[2018-07-12] MEDS ORDERED: MIDAZOLAM HCL 2 MG/2 ML INJ ONE (09:58)
[2018-07-12] MEDS ORDERED: ONDANSETRON 4 MG/2 ML VIAL ONE (09:59)
[2018-07-12] MEDS ORDERED: LIDOCAINE 1% MPF 2 ML AMPULE ONE (09:59)
[2018-07-12] MEDS ORDERED: NA CHLORIDE 0.9% 1,000 ML ONE (10:13)
[2018-07-12] MEDS ORDERED: CEFAZOLIN/SWI 1gm 1 GM/10 ML SYR ONE (10:17)
[2018-07-12 10:18] LABS: Absolute Lymphocytes (CBC) 1.3 K/uL (0.7-4.9); Absolute Monocytes 0.7 K/uL (0.1-1.3); Absolute Neutrophil 3.9 K/uL (1.8-8.0); Basophils % 1.2 % (0-1.3); Eosinophils % 4.6 % (0-4.4); Hematocrit 34.6 % (36.0-45.0); Lymphocytes % 21.3 % (15.3-44.8); MPV 7.5 fL (7.6-11.3); Monocytes % 11.5 % (3.3-12.3); RBC Red Blood Cell Count 4.07 M/uL (3.86-4.86)
[2018-07-12] MEDS ORDERED: EPHEDRINE SULF 50 MG/ML VIAL ONE (10:43)
[2018-07-12] MEDS: MEPERIDINE HCL 25 MG/0.5 ML ONE ×4 (11:44→12:06)
[2018-07-12] MEDS ORDERED: CODEINE 30MG/APAP 300MG TAB PO ONE (13:28)
[2018-07-12] MEDS ORDERED: CODEINE 30MG/APAP 300MG TAB ONE (13:37)
--- NOTE | 2018-07-12 14:43 | EKG ---
Test Date: 2018-07-12 Test Time: 10:00:45 Producer: ABEL MEASUREMENT RESULTS: Intervals: Rate: 67 NH: 220 QRSD: 120 QT: 466 QTc: 492 Keyes: P: 69 NH: 220 QRS: 30 T: 98 INTERPRETIVE STATEMENTS: Sinus rhythm with 1st degree AV block Nonspecific intraventricular conduction delay Nonspecific T wave abnormality Abnormal ECG Compared to ECG 10/30/2012 07:22:01 First degree AV block now present Intraventricular conduction delay now present T-wave abnormality now present Prolonged QT interval no longer present Electronically Signed On 07-12-18 14:40:56 CDT by Austin Cabral
[2018-07-12 14:48] VITALS: BP 138/64; TEMP 97; O2SAT 98
--- NOTE | 2018-07-12 23:36 | OP ---
Date of Procedure: 07/12/2018 Surgeon: Ronny Pozo MD Preoperative Diagnosis: Osteomyelitis of the right middle finger DIP joint. Postoperative Diagnosis: Osteomyelitis of the right middle finger DIP joint. Procedure Performed: Debridement of skin, subcutaneous tissue, and bone, fusion the DIP joint, splin t. Anesthesia: General. Procedure In Detail: After satisfactory induction of general anesthesia, the arm was prepped with Be tadine scrub, Betadine paint. Dry sterile drapes were applied in the usual manner. Arm was elevated , exsanguinated with an Esmarch. Tourniquet was inflated to 250 mmHg. Hand was placed on a [place]otalok table. A curvilinear incision was made over the dorsum of the finger extending from nail plate proxi colby and transversely over DIP then proximally on angle. The flaps were elevated. There were areas of open skin from previous surgery, dissected down. The extensor tendon was incised overlying the d istal portion of the proximal phalanx. The nail plate was then removed. Dissection was proceeded do wn. A saw was used to cut the bone squarely proximally over the distal portion of the middle phalanx and distally over the proximal portion of the distal phalanx. The cultures were taken. Then, the w ound was then jet lavaged, irrigated. All necrotic soft tissue was excised prior to jet lavage irrig ation. Then, a 0.035 K-wire was placed from proximal to distal phalanx. Then used it and peeled the proximal phalanx and K-wire to reduce the PIP joint. The patient then had a tourniquet released and wound closed with 4-0 Prolene horizontal mattress and simple sutures. Dressed with Xeroform, 2-inch Armond, Alumafoam splint holding the PIP and DIP in extension. The patient tolerated the procedure well and returned to recovery. JACLYN/HOA Voice ID: [id number] Report ID: [id number]
== END 2018-07-12 13:45 | disposition home or self-care (01) ==
LOC: OR 09:32
PROVIDERS: ATTEND Specialist
PROC: 0PBT0ZZ Excision of Right Finger Phalanx, Open Approach (ICD-10-PCS; 2018-07-12)
PROC: 0RGW04Z Fusion of Right Finger Phalangeal Joint with Internal Fixation Device, Open Approach (ICD-10-PCS; principal; 2018-07-12 10:00)
DX: M86.141 Other acute osteomyelitis, right hand (principal); L03.011 Cellulitis of right finger; Z79.899 Other long term (current) drug therapy
CPT/HCPCS: 26860; 11044; 93005; 87070; 85025; 36415; 87205 ×2; 82962 ×2; 88304; 88311; 87075; 87077; 87186; J2704; J2250; J3010; J2175 ×2; J2001; J0690; J7030; J2405

== ENCOUNTER 2018-08-02 07:56 | Day surgery (SDC) | payer OTHER, SELFPAY ==
[2018-08-01 13:24] LABS: Absolute Lymphocytes (CBC) 1.7 K/uL (0.7-4.9); Absolute Monocytes 0.6 K/uL (0.1-1.3); Absolute Neutrophil 4.3 K/uL (1.8-8.0); Basophils % 1.2 % (0-1.3); Eosinophils % 5.3 % (0-4.4); Hematocrit 33.5 % (36.0-45.0); Lymphocytes % 24.3 % (15.3-44.8); MPV 7.5 fL (7.6-11.3); Monocytes % 8.1 % (3.3-12.3); RBC Red Blood Cell Count 3.97 M/uL (3.86-4.86)
[2018-08-01 13:44] LABS: Potassium 5.4 mmol/L (3.5-5.1)
[2018-08-02] MEDS ORDERED: NA CHLORIDE 0.9% 1,000 ML ONE ×2 (08:40→11:06)
[2018-08-02] MEDS ORDERED: CEFAZOLIN/SWI 1gm 1 GM/10 ML SYR ONE (08:40)
[2018-08-02] MEDS ORDERED: PROPOFOL 200 MG/20 ML VIAL IV ONE ×2 (09:00→09:38)
[2018-08-02] MEDS ORDERED: FENTANYL CITR 100 MCG/2 ML ONE ×2 (09:00→09:39)
[2018-08-02] MEDS ORDERED: LIDOCAINE 1% MPF 5 ML VIAL ONE ×2 (09:01→09:39)
[2018-08-02] MEDS ORDERED: ONDANSETRON 4 MG/2 ML VIAL ONE ×2 (09:03→10:53)
[2018-08-02] MEDS ORDERED: MIDAZOLAM HCL 2 MG/2 ML INJ ONE ×2 (09:03→09:39)
[2018-08-02] MEDS ORDERED: MINERAL OIL, LITE 10 ML VIAL ONE (09:08)
--- NOTE | 2018-08-02 09:15 | RAD REPORT ---
EXAM DESCRIPTION: RAD - Finger-Thumb Right - 08/02/2018 8:32 am CLINICAL HISTORY: preop Pain and swelling COMPARISON: Hand Right 3 View dated 07/08/2018 FINDINGS: Two K-wires are present in the third finger. Prominent soft tissue swelling is seen. The K -wire bridges a prominent bony gap between the middle and distal phalanges of the finger. The very di stal aspect of the distal phalanx appears demineralized.
[2018-08-02] MEDS ORDERED: EPHEDRINE SULF 50 MG/ML VIAL ONE (10:34)
[2018-08-02] MEDS ORDERED: NS 0.9% VIAL 10 ML ONE (10:35)
[2018-08-02] MEDS ORDERED: GLYCOPYRROLATE 0.2 MG/ML SYR ONE (10:42)
[2018-08-02] MEDS ORDERED: Phenylephrine HCl 10 MG/ML 1 ML VIAL ONE (10:46)
[2018-08-02] MEDS ORDERED: Mastisol Adhesive Liq ONE (10:59)
[2018-08-02] MEDS: MORPHINE 4 MG/ML SYR ONE ×2 (11:32→11:38)
[2018-08-02 12:40] VITALS: BP 120/56; TEMP 98.5; O2SAT 96
--- NOTE | 2018-08-05 09:24 | OP ---
Surgeon: Ronny Pozo MD Information Services Consultant: Owen. Preoperative Diagnosis: Open wound of the right middle finger. Postoperative Diagnosis: Open wound of the right middle finger. Procedures Performed: Debridement of skin and subcutaneous tissue, simple closure 0.5 cm wound, flap advancement, full-thickness skin graft. Anesthesia: General. Procedure In Detail: After satisfactory induction of general anesthesia, the right hand was prepped with Betadine scrub, Betadine paint, dry sterile drapes applied in usual manner. Hand was placed on the [place] table. Tourniquet was inflated to 250 mmHg. A scalpel was used to remove the dry eschar . The patient's flap was elevated. The distal portion of flap with the skin was debrided. The ernie ent had an elliptical incision over the pin sites, after pins were removed. The bony areas were scra ped with a curette. The wound was jet lavaged, irrigated with 3 L of dilute Betadine solution. A 3- 0 Prolene suture placed on either side of the fracture and closing the space, and then the skin flap was advanced and closed with a skin graft. The skin was harvested from the dorsal wrist, 1.5 x 0.5 cm. After partial thickness harvested, the remaining dermis was discarded, and wound was closed with running 4-0 PDS. Tincture of benzoin and Steri-Strips were applied. with 4-0 Prolen e sutures and skin with Xeroform, foam rubber sponge. Dressings consisted 2 inch Armond and Kerlix. The patient tolerated the procedure well and returned to recovery room. JACLYN/HOA Voice ID: [id number] Report ID: [id number]
== END 2018-08-02 13:12 | disposition home or self-care (01) ==
LOC: OR 07:56
PROVIDERS: ATTEND Specialist
PROC: 0HXFXZZ Transfer Right Hand Skin, External Approach (ICD-10-PCS; 2018-08-02)
PROC: 0JDJ3ZZ Extraction of Right Hand Subcutaneous Tissue and Fascia, Percutaneous Approach (ICD-10-PCS; principal; 2018-08-02 09:00)
DX: S61.202A Unspecified open wound of right middle finger without damage to nail, initial encounter (principal); X58.XXXA Exposure to other specified factors, initial encounter
CPT/HCPCS: 14040; 11042; 85025; 80048; 36415; 82962 ×2; 88304; 73140; J2704; J2370; J2250; J3010; J0690; J7030 ×2; J2405

== ENCOUNTER 2018-08-12 09:46 | Day surgery (SDC) | payer OTHER, SELFPAY ==
[2018-08-12 10:29] LABS: Absolute Lymphocytes (CBC) 1.6 K/uL (0.7-4.9); Absolute Monocytes 0.7 K/uL (0.1-1.3); Basophils % 1.1 % (0-1.3); Eosinophils % 3.1 % (0-4.4); Hematocrit 33.8 % (36.0-45.0); Lymphocytes % 23.9 % (15.3-44.8); MPV 7.3 fL (7.6-11.3); Monocytes % 10.8 % (3.3-12.3); RBC Red Blood Cell Count 4.09 M/uL (3.86-4.86)
[2018-08-12 10:40] LABS: Potassium 4.4 mmol/L (3.5-5.1)
[2018-08-12] MEDS ORDERED: NA CHLORIDE 0.9% 1,000 ML ONE (11:14)
[2018-08-12] MEDS ORDERED: CEFAZOLIN/SWI 1gm 1 GM/10 ML SYR ONE (11:15)
[2018-08-12] MEDS ORDERED: PROPOFOL 200 MG/20 ML VIAL IV ONE (11:19)
[2018-08-12] MEDS ORDERED: FENTANYL CITR 100 MCG/2 ML ONE (11:20)
[2018-08-12] MEDS ORDERED: MIDAZOLAM HCL 2 MG/2 ML INJ ONE (11:20)
[2018-08-12] MEDS ORDERED: ONDANSETRON 4 MG/2 ML VIAL ONE ×2 (11:21→13:26)
[2018-08-12] MEDS ORDERED: LIDOCAINE 2% MPF 5 ML VIAL ONE (11:21)
[2018-08-12] MEDS ORDERED: EPHEDRINE SULF 50 MG/ML VIAL ONE (12:08)
[2018-08-12] MEDS ORDERED: D50W 25 GM/50 ML SYRINGE IV ONE (12:53)
[2018-08-12] MEDS ORDERED: CODEINE 30MG/APAP 300MG TAB ONE (13:44)
[2018-08-12 14:30] VITALS: BP 99/73; TEMP 97.9; O2SAT 98
--- NOTE | 2018-08-12 23:19 | OP ---
Surgeon: Ronny Pozo MD Preoperative Diagnosis: Osteomyelitis of the right middle finger. Postoperative Diagnosis: Osteomyelitis of the right middle finger. Procedure Performed: Right middle finger ray amputation. Anesthesia: General. Procedure In Detail: After satisfactory induction of general anesthesia, the right hand was prepped with Betadine scrub and Betadine paint. Dry sterile drapes applied in the usual manner. A _ the right middle finger incision on dorsal surface and extended circumferentially around the finger. Transverse incision was made down through the extensor mechanism down to the bone. Saw was used to divide the bone and the finger was removed. The patient had the ligaments in tact. These were resected and kept approximately a centimeter long. The wound was jet lavaged, irri gated, and then tourniquet released. Electrocautery was used for hemostasis. 4-0 Mersilene was used to repair the transverse carpal ligament. Three sutures were used and then the wound was closed wit h 3-0 Vicryl subcu and 4-0 Prolene vertical mattress, and the skin dressed with Xeroform 2 and inch K ling. The patient tolerated the procedure well and returned to Recovery. JACLYN/HOA Voice ID: [id number] Report ID: [id number]
== END 2018-08-12 14:24 | disposition home or self-care (01) ==
LOC: OR 09:46
PROVIDERS: ATTEND Specialist
PROC: 0X6Q0Z1 Detachment at Right Middle Finger, High, Open Approach (ICD-10-PCS; principal; 2018-08-12 11:30)
DX: E11.69 Type 2 diabetes mellitus with other specified complication (principal); M86.8X4 Other osteomyelitis, hand; I10 Essential (primary) hypertension; Z79.4 Long term (current) use of insulin; Z79.899 Other long term (current) drug therapy
CPT/HCPCS: 26951; 85025; 80048; 36415; 82962 ×3; 88305; 88311; J2704; J2250; J3010; J0690; J7030; J2405 ×2

== ENCOUNTER 2019-03-17 15:52 | Inpatient (IN) | payer OTHER, SELFPAY ==
--- NOTE | 2019-03-17 17:13 | RAD REPORT ---
EXAM DESCRIPTION: CT - Head Brain Wo Cont - 03/17/2019 5:03 pm CLINICAL HISTORY: Dizziness, presyncope, hypertension COMPARISON: October 2007 CT head TECHNIQUE: Axial 5 mm thick images of the head were obtained without IV contrast. All CT scans are performed using dose optimization technique as appropriate and may include automated exposure control or mA/KV adjustment according to patient size. FINDINGS: No intracranial hemorrhage, mass, edema or shift of mid-line structures. No acute infarcti on changes seen. No abnormal extra-axial fluid collections. Mild atrophy and minimal chronic ischemic changes are present. Ventricles are in proportion. Mastoid air cells and visualized portions of the paranasal sinuses are clear. No acute bony findings. Intracranial findings are not substantially different from comparison. IMPRESSION: Negative non-contrast CT head examination for acute or significant finding.
[2019-03-17] MEDS ORDERED: ONDANSETRON 4 MG/2 ML VIAL ONE (17:21)
[2019-03-17] MEDS ORDERED: MECLIZINE HCL 12.5 MG TAB ONE (17:21)
[2019-03-17] MEDS ORDERED: NA CHLORIDE 0.9% 1,000 ML ONE (17:21)
[2019-03-17 17:26] LABS: Absolute Lymphocytes (CBC) 2.4 K/uL (0.7-4.9); Basophils % 1.3 % (0-1.3); MPV 8.9 fL (7.6-11.3); RBC Red Blood Cell Count 4.62 M/uL (3.86-4.86)
[2019-03-17 17:29] LABS: Protime INR 0.98
--- NOTE | 2019-03-17 17:41 | RAD REPORT ---
EXAM DESCRIPTION: RAD - Chest Single View - 03/17/2019 4:57 pm CLINICAL HISTORY: Shortness of breath, abdominal pain, vomiting COMPARISON: May 2018 TECHNIQUE: AP portable chest image was obtained 162 hours . FINDINGS: No focal mass or consolidation. No failure or volume overload. Lung markings match compari son. Heart and vasculature are normal. No measurable pleural effusion and no pneumothorax. No acute bony abnormality seen. No acute aortic findings suspected. IMPRESSION: No acute cardiopulmonary process.
[2019-03-17 17:45] LABS: Albumin 3.8 g/dL (3.4-5.0); Bilirubin Direct 0.2 mg/dL (0-0.2); Bilirubin Total 0.7 mg/dL (0.2-1.0); Magnesium 2.4 mg/dL (1.8-2.4); Potassium 4.2 mmol/L (3.5-5.1); Protein, Total 8.2 g/dL (6.4-8.2); Troponin (Emerg Dept Use Only) 0.35 ng/mL (0.0-0.045)
--- NOTE | 2019-03-17 18:07 | RAD REPORT ---
EXAM DESCRIPTION: US - Renal Ultrasound-Complete - 03/17/2019 5:43 pm CLINICAL HISTORY: Chronic renal disease COMPARISON: December 2018 FINDINGS: Kidneys are unchanged in size from December 2018 imaging. Cortical thickness is normal. The kidneys show slight increase in cortical echogenicity consistent with medical renal disease. No hydr onephrosis or suspicious renal mass. No bladder wall thickening or mass. No intraluminal stone or mass. IMPRESSION: No hydronephrosis or suspicious renal mass. No other significant findings.
--- NOTE | 2019-03-17 19:24 | EDPHYS ---
Physician Documentation [facility] Name: Mattie Clark Age: 63 yrs Sex: Female : 1955 Arrival Date: 03/17/2019 Time: 15:59 Bed 13 Private MD: Jarvis Javed R ED Physician Aguilar Trujillo HPI: 03/17 16:59 This 63 yrs old Female presents to ER via Wheelchair with complaints of pkl Dizziness, Vomiting, Weakness, Leg Infection. 17:00 The patient presents with dizziness, generalized weakness, lightheadedness. Onset: The pkl symptoms/episode began/occurred 4 day(s) ago. Associated signs and symptoms: Pertinent positives: nausea, vomiting. Seen at Dr. Javed's office ( by Dr. Ham ) today. Request admission to hospital for further treatment and evaluations . Historical: - Allergies: 16:12 Prednisone; mg2 16:12 vancomycin; mg2 - PMHx: 16:12 Diabetes - IDDM; Hypertension; mg2 - PSHx: 16:12 right foot sx; Heart stents; mg2 - Immunization history:: Flu vaccine is up to date. - Social history:: Smoking status: Patient/guardian denies using tobacco, Patient/guardian denies using alcohol, street drugs, IV drugs. - Ebola Screening: : No symptoms or risks identified at this time. ROS: 17:00 Eyes: Negative for injury, pain, redness, and discharge, ENT: Negative for injury, pkl pain, and discharge, Neck: Negative for injury, pain, and swelling, Cardiovascular: Negative for chest pain, palpitations, and edema, Respiratory: Negative for shortness of breath, cough, wheezing, and pleuritic chest pain. 17:00 Abdomen/GI: Positive for nausea and vomiting. 17:00 Back: Negative for acute changes. 17:00 : Negative for urinary symptoms. 17:00 MS/extremity: Negative for acute changes. 17:00 Skin: Negative for rash. 17:00 Neuro: Positive for dizziness. Exam: 17:00 Head/Face: Normocephalic, atraumatic. Eyes: Pupils equal round and reactive to light, pkl extra-ocular motions intact. Lids and lashes normal. Conjunctiva and sclera are non-icteric and not injected. Cornea within normal limits. Periorbital areas with no swelling, redness, or edema. ENT: Nares patent. No nasal discharge, no septal abnormalities noted. Tympanic membranes are normal and external auditory canals are clear. Oropharynx with no redness, swelling, or masses, exudates, or evidence of obstruction, uvula midline. Mucous membranes moist. Neck: Trachea midline, no thyromegaly or masses palpated, and no cervical lymphadenopathy. Supple, full range of motion without nuchal rigidity, or vertebral point tenderness. No Meningismus. Chest/axilla: Normal chest wall appearance and motion. Nontender with no deformity. No lesions are appreciated. Cardiovascular: Regular rate and rhythm with a normal S1 and S2. No gallops, murmurs, or rubs. Normal PMI, no JVD. No pulse deficits. Respiratory: Lungs have equal breath sounds bilaterally, clear to auscultation and percussion. No rales, rhonchi or wheezes noted. No increased work of breathing, no retractions or nasal flaring. Abdomen/GI: Soft, non-tender, with normal bowel sounds. No distension or tympany. No guarding or rebound. No evidence of tenderness throughout. Back: No spinal tenderness. No costovertebral tenderness. Full range of motion. Skin: Warm, dry with normal turgor. Normal color with no rashes, no lesions, and no evidence of cellulitis. MS/ Extremity: Pulses equal, no cyanosis. Neurovascular intact. Full, normal range of motion. Neuro: Awake and alert, GCS 15, oriented to person, place, time, and situation. Cranial nerves II-XII grossly intact. Motor strength 5/5 in all extremities. Sensory grossly intact. Cerebellar exam normal. Normal gait. Vital Signs: 16:09 BP 118 / 61; Pulse 60; Resp 18; Temp 97.5; Pulse Ox 100% on R/A; Weight 127.01 kg; mg2 Height 5 ft. 10 in. (177.80 cm); Pain 0/10; 19:05 BP 116 / 76; Pulse 73; Resp 16; Pulse Ox 100% on R/A; jb4 19:52 BP 102 / 71; Pulse 69; Resp 18; Temp 98.1(TE); Pulse Ox 97% on R/A; jb4 16:09 Body Mass Index 40.18 (127.01 kg, 177.80 cm) mg2 MDM: 16:13 Patient medically screened. pkl 19:21 Data reviewed: vital signs, nurses notes, lab test result(s), EKG, radiologic studies, pkl CT scan, plain films. ED course: Talked to Dr. Ham, admit. 03/17 16:38 Order name: Basic Metabolic Panel; Complete Time: 17:52 pkl 03/17 16:38 Order name: CBC with Diff; Complete Time: 17:52 pkl 03/17 16:38 Order name: LFT's; Complete Time: 17:52 pkl 03/17 16:38 Order name: Magnesium; Complete Time: 17:52 pkl 03/17 16:38 Order name: NT PRO-BNP; Complete Time: 17:52 pkl 03/17 16:38 Order name: PT-INR; Complete Time: 17:52 pkl 03/17 16:38 Order name: Troponin (emerg Dept Use Only); Complete Time: 17:52 pkl 03/17 19:36 Order name: CBC with Automated Diff EDMS 03/17 19:36 Order name: CBC with Automated Diff EDMS 03/17 19:36 Order name: Comprehensive Metabolic Panel EDMS 03/17 19:36 Order name: Comprehensive Metabolic Panel EDMS 03/17 19:36 Order name: Magnesium EDMS 03/17 19:36 Order name: Magnesium EDMS 03/17 19:36 Order name: Phosphorus EDMS 03/17 16:38 Order name: XRAY Chest (1 view); Complete Time: 17:52 pkl 03/17 16:43 Order name: CT Head Brain wo Cont; Complete Time: 17:52 pkl 03/17 19:36 Order name: Phosphorus EDMS 03/17 19:36 Order name: NT PRO-BNP EDMS 03/17 19:36 Order name: NT PRO-BNP EDMS 03/17 19:36 Order name: Troponin I EDMS 03/17 19:36 Order name: Troponin I EDMS 03/17 19:38 Order name: Urinalysis EDMS 03/17 19:39 Order name: Hepatitis Panel,Acute EDMS 03/17 19:39 Order name: Hepatitis Panel,Acute EDMS 03/17 19:39 Order name: Ur Protein EDMS 03/17 19:39 Order name: Ur Protein EDMS 03/17 19:40 Order name: KAMRAN IFA Screen w/Reflex EDMS 03/17 19:40 Order name: KAMRAN IFA Screen w/Reflex [facility] 03/17 19:40 Order name: Anti-Double Strand DNA Antibod [facility] 03/17 19:40 Order name: Anti-Double Strand DNA Antibod [facility] 03/17 16:38 Order name: EKG; Complete Time: 16:[address] [facility] 03/17 16:38 Order name: Cardiac monitoring; Complete Time: 18:[address] [facility] 03/17 16:38 Order name: EKG - Nurse/Tech; Complete Time: 18:[address] [facility] 03/17 16:38 Order name: IV Saline Lock; Complete Time: 18:41 pk 03/17 16:38 Order name: Labs collected and sent; Complete Time: 18:[address] [facility] 03/17 16:38 Order name: O2 Per Protocol; Complete Time: 18:[address] [facility] 03/17 16:38 Order name: O2 Sat Monitoring; Complete Time: 18:[address] [facility] 03/17 16:43 Order name: US Rp Exam Complete; Complete Time: 19:[address] [facility] 03/17 19:36 Order name: CONS Physician Consult [facility] 03/17 19:36 Order name: CONS Physician Consult [facility] 03/17 19:36 Order name: Renal [facility] 03/17 19:39 Order name: Renal Ultrasound-Complete [facility] 03/17 19:39 Order name: Renal Ultrasound-Complete [facility] Administered Medications: 17:27 Drug: Zofran 4 mg Route: IVP; Site: right antecubital; jl7 18:40 Follow up: Response: No adverse reaction; Nausea is decreased jl7 17:27 Drug: NS 0.9% 1000 ml Route: IV; Rate: 100 ml/hr; Site: right antecubital; jl7 20:59 Follow up: Response: No adverse reaction; IV Status: Infusion continued upon admission; jb4 IV Intake: 300ml 17:29 Drug: Meclizine 50 mg Route: PO; jl7 18:00 Follow up: Response: No adverse reaction; Marked relief of symptoms jl7 Disposition: 03/17/19 19:23 Hospitalization ordered by Maria Isabel Ham for Inpatient Admission. Preliminary diagnosis is Dizziness. Recurrent vomiting. Dehydration. Chronic renal disease. - Bed requested for Telemetry/MedSurg (Inpatient). - Status is Inpatient Admission. jb4 - Condition is Stable. - Problem is new. - Symptoms are unchanged. UTI on Admission? No Signatures: Dispatcher [employer] EDMS Aguilar Trujillo MD MD pkl Ivory Martins, RN RN cg Tanner Fagan, MIA RN jb4 Branden Manriquez, RN RN jl7 Farshad Aguilera, RN RN mg2 Corrections: (The following items were deleted from the chart) 19:43 19:23 Hospitalization Ordered by Maria Isabel Ham MD for Inpatient Admission. Preliminary cg diagnosis is Dizziness. Recurrent vomiting. Dehydration. Chronic renal disease. Bed requested for Telemetry/MedSurg (Inpatient). Status is Inpatient Admission. Condition is Stable. Problem is new. Symptoms are unchanged. UTI on Admission? No. pkl 21:03 19:43 03/17/2019 19:23 Hospitalization Ordered by Maria Isabel Ham MD for Inpatient jb4 Admission. Preliminary diagnosis is Dizziness. Recurrent vomiting. Dehydration. Chronic renal disease. Bed requested for Telemetry/MedSurg (Inpatient). Status is Inpatient Admission. Condition is Stable. Problem is new. Symptoms are unchanged. UTI on Admission? No. cg
--- NOTE | 2019-03-17 19:24 | ER ---
Nurse's Notes [facility] Name: Mattie Clark Age: 63 yrs Sex: Female : 1955 Arrival Date: 03/17/2019 Time: 15:59 Bed 13 Private MD: Jarvis Javed R Diagnosis: Dizziness. Recurrent vomiting. Dehydration. Chronic renal disease Presentation: 03/17 16:03 Presenting complaint: Patient states: I am dizzy and lightheaded whenever i get up from mg2 bed. i came from Dr Whitaker office last Mar.09 and EKG was normal but my K and kidney function was high. K-5.7. Transition of care: patient was not received from another setting of care. Onset of symptoms was March 2019. Risk Assessment: Do you want to hurt yourself or someone else? Patient reports no desire to harm self or others. Initial Sepsis Screen: Does the patient meet any 2 criteria? No. Patient's initial sepsis screen is negative. Does the patient have a suspected source of infection? No. Patient's initial sepsis screen is negative. Care prior to arrival: None. 16:03 Method Of Arrival: Wheelchair mg2 16:03 Acuity: BARBARA 3 mg2 Historical: - Allergies: 16:12 Prednisone; mg2 16:12 vancomycin; mg2 - PMHx: 16:12 Diabetes - IDDM; Hypertension; mg2 - PSHx: 16:12 right foot sx; Heart stents; mg2 - Immunization history:: Flu vaccine is up to date. - Social history:: Smoking status: Patient/guardian denies using tobacco, Patient/guardian denies using alcohol, street drugs, IV drugs. - Ebola Screening: : No symptoms or risks identified at this time. Screenin:45 Abuse screen: Denies threats or abuse. Denies injuries from another. Nutritional jl7 screening: No deficits noted. Tuberculosis screening: No symptoms or risk factors identified. Fall Risk IV access (20 points). Total Tao Fall Scale indicates No Risk (0-24 pts). Assessment: 16:45 General: Appears in no apparent distress. uncomfortable, Behavior is calm, cooperative, jl7 appropriate for age. Pain: Denies pain. Neuro: Level of Consciousness is awake, alert, obeys commands, Oriented to person, place, time, situation, [employer] Consultant are equal bilaterally Moves all extremities. Full function Gait is steady, Speech is normal, Facial symmetry appears normal, Reports dizziness. Cardiovascular: Patient's skin is warm and dry. Respiratory: Airway is patent Respiratory effort is even, unlabored, Respiratory pattern is regular, symmetrical. GI: Abdomen is round non-distended, Reports nausea, vomiting. : No signs and/or symptoms were reported regarding the genitourinary system. EENT: No signs and/or symptoms were reported regarding the EENT system. Derm: Skin is pink, warm \T\ dry. Musculoskeletal: No signs and/or symptoms reported regarding the musculoskeletal system. 17:45 Reassessment: Patient appears in no apparent distress at this time. Patient and/or jl7 family updated on plan of care and expected duration. Pain level reassessed. Patient is alert, oriented x 3, equal unlabored respirations, skin warm/dry/pink. 18:45 Reassessment: Patient appears in no apparent distress at this time. Patient and/or jl7 family updated on plan of care and expected duration. Pain level reassessed. Patient is alert, oriented x 3, equal unlabored respirations, skin warm/dry/pink. Patient states feeling better. Patient states symptoms have improved. 19:05 Reassessment: Patient appears in no apparent distress at this time. Patient and/or jb4 family updated on plan of care and expected duration. Pain level reassessed. Patient is alert, oriented x 3, equal unlabored respirations, skin warm/dry/pink. PT reports feeling better but still feeling nauseous and light headed. 19:52 Reassessment: Patient appears in no apparent distress at this time. Patient and/or jb4 family updated on plan of care and expected duration. Pain level reassessed. Patient is alert, oriented x 3, equal unlabored respirations, skin warm/dry/pink. 20:56 Reassessment: Patient appears in no apparent distress at this time. Patient and/or jb4 family updated on plan of care and expected duration. Pain level reassessed. Patient is alert, oriented x 3, equal unlabored respirations, skin warm/dry/pink. PT transferred to room 408, via wheelchair. Vital Signs: 16:09 BP 118 / 61; Pulse 60; Resp 18; Temp 97.5; Pulse Ox 100% on R/A; Weight 127.01 kg; mg2 Height 5 ft. 10 in. (177.80 cm); Pain 0/10; 19:05 BP 116 / 76; Pulse 73; Resp 16; Pulse Ox 100% on R/A; jb4 19:52 BP 102 / 71; Pulse 69; Resp 18; Temp 98.1(TE); Pulse Ox 97% on R/A; jb4 16:09 Body Mass Index 40.18 (127.01 kg, 177.80 cm) mg2 ED Course: 15:59 Patient arrived in ED. mr 16:00 Jarvis Javed MD is Private Physician. mr 16:09 Triage completed. mg2 16:12 Arm band placed on. mg2 16:13 Aguilar Trujillo MD is Attending Physician. pkl 16:45 Patient has correct armband on for positive identification. Bed in low position. Call jl7 light in reach. Side rails up X2. software technician on. Pulse ox on. NIBP on. Warm blanket given. 16:57 Branden Manriquez, MIA is Primary Nurse. jl7 16:59 XRAY Chest (1 view) In Process Unspecified. EDMS 17:03 CT Head Brain wo Cont In Process Unspecified. EDMS 17:20 Initial lab(s) drawn, by nm, sent to lab. Inserted saline lock: 22 gauge in right jl7 antecubital area, using aseptic technique. Blood collected. 17:43 US Rp Exam Complete In Process Unspecified. EDMS 17:55 EKG done, by ED staff, reviewed by Aguilar Trujillo MD. dh3 19:22 Maria Isabel Ham MD is Hospitalizing Provider. pkl 20:56 No provider procedures requiring assistance completed. Patient admitted, IV remains in jb4 place. Administered Medications: 17:27 Drug: Zofran 4 mg Route: IVP; Site: right antecubital; jl7 18:40 Follow up: Response: No adverse reaction; Nausea is decreased jl7 17:27 Drug: NS 0.9% 1000 ml Route: IV; Rate: 100 ml/hr; Site: right antecubital; jl7 20:59 Follow up: Response: No adverse reaction; IV Status: Infusion continued upon admission; jb4 IV Intake: 300ml 17:29 Drug: Meclizine 50 mg Route: PO; jl7 18:00 Follow up: Response: No adverse reaction; Marked relief of symptoms jl7 Intake: 20:59 IV: 300ml; Total: 300ml. jb4 Outcome: 19:23 Decision to Hospitalize by Provider. pkl 20:56 Admitted to Tele accompanied by nurse, via wheelchair, room 408, with chart, Report jb4 called to MIA Orellana 20:56 Condition: stable 20:56 Discharge instructions given to patient, Instructed on the need for admit, Demonstrated understanding of instructions. 21:03 Patient left the ED. jb4 Signatures: Dispatcher [employer] EDMS Aguilar Trujillo MD MD pkl Baron, Vi mr FaganTanner, RN RN jb4 Branden Manriquez RN RN jl7 Jazmin Whitney 3 Farshad Aguilera RN RN mg2 Corrections: (The following items were deleted from the chart) 16:29 16:09 Pulse 60bpm; Resp 18bpm; Pulse Ox 100% RA; Temp 97.5F; 127.01 kg; Height 5 ft. 10 mg2 in.; BMI: 40.1; Pain 0/10; mg2 19:52 19:05 Reassessment: Patient appears in no apparent distress at this time. Patient jb4 and/or family updated on plan of care and expected duration. Pain level reassessed. Patient is alert, oriented x 3, equal unlabored respirations, skin warm/dry/pink. jb4
[2019-03-17] MEDS ORDERED: ALPRAZOLAM 0.25 MG TABLET PO PRN (19:31)
[2019-03-17] MEDS ORDERED: ACETAMINOPHEN 500 MG TAB PO PRN (19:31)
[2019-03-17] MEDS ORDERED: ONDANSETRON 4 MG/2 ML VIAL IV PRN (19:31)
[2019-03-17] MEDS: NA CHLORIDE 0.9% 1,000 ML IV SCH (21:27)
[2019-03-17 21:52] VITALS: BMI 40.1
[2019-03-17] MEDS: HEPARIN 5000 UNIT/ML 1 ML VIAL SQ SCH (22:41)
[2019-03-18 04:54] LABS: Absolute Lymphocytes (CBC) 2.2 K/uL (0.7-4.9); Hematocrit 37.3 % (36.0-45.0); Lymphocytes % 25.3 % (15.3-44.8); RBC Red Blood Cell Count 4.25 M/uL (3.86-4.86)
[2019-03-18 05:23] LABS: Albumin 3.3 g/dL (3.4-5.0); Bilirubin Total 0.6 mg/dL (0.2-1.0); Potassium 4.2 mmol/L (3.5-5.1); Protein, Total 7.2 g/dL (6.4-8.2)
[2019-03-18 05:24] LABS: Magnesium 2.2 mg/dL (1.8-2.4); Troponin I 0.34 ng/mL (0.0-0.045)
[2019-03-18] MEDS ORDERED: INSULIN 70/30 100 UNITS/ML SQ ONE ×2 (05:45→05:59)
[2019-03-18] MEDS: NA CHLORIDE 0.9% 1,000 ML IV SCH ×2 (05:54→16:38)
[2019-03-18] MEDS ORDERED: NA CHLORIDE 0.9% 250 ML IV ONE (06:07)
--- NOTE | 2019-03-18 06:55 | P.HP ---
Certification for Inpatient Patient admitted to: Inpatient With expected LOS: >2 Midnights Patient will require the following post-hospital care: None Practitioner: I am a practitioner with admitting privileges, knowledge of patient current condition, hospital course, and medical plan of care. Services: Services provided to patient in accordance with Admission requirements found in Title 42 Section 412.3 of the Code of Federal Regulations Patient History Date of Service: 03/17/19 Reason for admission: Acute kidney injury/metabolic alkalosis/Hyperkalemia History of Present Illness: Patient is a 63-year-old female came to the hospital from her PCPs office with acute kidney injury. Patient had labs performed on Sunday, March 12. These resulted on . The labs revealed acute kidney injury with a creatinine of 3.7. Patient's baseline creatinine is 2.3. Patient also had hyperkalemia with a potassium of 5.7. Patient was sent into the emergency room where her creatinine has gone up to 4.28. Clinically she appears to be doing very poorly. She is lightheaded, ataxic, and having vertigo. Whenever she stands up she feels like she is going to faint. She will be admitted to the hospital for acute kidney injury as her creatinine has almost doubled, and her GFR was 30. Currently, her GFR is 10. We will hydrate her aggressively. We will also get Nephrology and Cardiology consultation. Patient also has a couple wounds. One is on her leg which appears healed, and the other is on her back which has some drainage. Will continue with antibiotics and may need wound healing Center to evaluate these. Allergies prednisone Allergy (Verified 08/12/18 11:24) Hives/Rash vancomycin Adverse Reaction (Verified 08/12/18 11:24) Itching/Hives/Rash/kidney damage Home Medications: Aspirin Chewable [Aspirin Chewable*] 81 mg PO DAILY 05/27/18 Atorvastatin Calcium [Lipitor] 80 mg PO BEDTIME 05/27/18 Calcium Carb/Vitamin D3/Vit K1 [Calcium + D Soft Chewable Tab] 1 each PO BID Clopidogrel Bisulfate [Plavix] 75 mg PO DAILY 05/27/18 Furosemide [Lasix] 80 mg PO DAILY 05/27/18 Insulin Lispro [Humalog*] 15 unit SQ BID 05/27/18 Levothyroxine [Synthroid] 125 mcg PO [id number] 05/27/18 Ranolazine [Ranexa] 1,000 mg PO BID 05/27/18 Gabapentin 300 mg PO DAILY 03/18/19 Gabapentin 600 mg PO BEDTIME 03/18/19 Insulin Glargine,Hum.rec.anlog [Basaglar Sergeypen U-100] 50 unit SQ BEDTIME 03/18 Metoprolol Succinate 25 mg PO DAILY 03/18/19 - Past Medical/Surgical History Has patient received pneumonia vaccine in the past: No Diabetic: Yes -: IDDM -: Hyperlipidemia -: mild CHF -: HTN -: 70% Kidney Failure -: hysterectomy -: thyroidectomy -: choleysectomy -: R foot sx -: heart stents X2 - Family History Mother Medical History: Stroke Notes: heart stent Father Medical History: Heart disease, Cancer - Social History Smoking Status: Never smoker Alcohol use: No CD- Drugs: No Caffeine use: No Place of Residence: Home Review of Systems 10-point ROS is otherwise unremarkable Physical Examination - Vital Signs Temperature: 98.2 F Blood Pressure: 98/51 Pulse: 83 Respirations: 16 Pulse Ox (%): 96 - Physical Exam General: Alert, In no apparent distress, Oriented x3 HEENT: Atraumatic, PERRLA, Mucous membr. moist/pink, EOMI, Sclerae nonicteric Neck: Supple, 2+ carotid pulse no bruit, No LAD, Without JVD or thyroid abnormality Respiratory: Clear to auscultation bilaterally, Normal air movement Cardiovascular: Regular rate/rhythm, Normal S1 S2, No murmurs Gastrointestinal: Normal bowel sounds, Soft and benign, Non-distended, No tenderness Musculoskeletal: No clubbing, No swelling, No tenderness Integumentary: No rashes Neurological: Normal speech, Normal tone, Sensation intact, Cranial nerves 3-12 intact, Normal affect, Abnormal gait, Abnormal strength Lymphatics: No axilla or inguinal lymphadenopathy - Studies Laboratory Data (last 24 hrs) 03/17/19 17:10: PT 11.6, INR 0.98 03/17/19 17:10: WBC 10.2, Hgb 13.1, Hct 40.0, Plt Count 329 03/17/19 17:10: Sodium 130 L, Potassium 4.2, BUN 65 H, Creatinine 4.28 H, Glucose 302 H, Magnesium 2.4, Total Bilirubin 0.7, AST 30, ALT 28, Alkaline Phosphatase 104 Assessment & Plan - Problems (Diagnosis) (1) ANALIA (acute kidney injury) Current Visit: Yes Status: Acute (2) Cellulitis, leg Current Visit: Yes Status: Acute (3) Acute on chronic renal failure Onset Date: 12/10/17 Current Visit: No Status: Acute (4) Cellulitis of back Current Visit: Yes Status: Acute (5) CAD (coronary artery disease) Onset Date: 12/10/17 Current Visit: No Status: Acute (6) CHF (congestive heart failure) Onset Date: 12/10/17 Current Visit: No Status: Acute (7) Diabetes mellitus, type II Onset Date: 05/29/17 Current Visit: No Status: Acute (8) Hyperkalemia Onset Date: 12/10/17 Current Visit: No Status: Acute (9) Shortness of breath Onset Date: 05/29/17 Current Visit: No Status: Acute - Plan Plan: 1. Aggressive IV hydration 2. Nephrology and Cardiology consultation 3. Hold Lasix 4. Resume her diabetic medications and her cardiac meds 5. Check renal ultrasound as well as urine protein/creatinine ratio 6. Decrease the dose of her insulin as her renal function has worsened. 7. Hemoglobin A1c level 8. Check KAMRAN and ds-DNA 9. GI and DVT prophylaxis Discharge Plan: Home Plan to discharge in: Greater than 2 days - Advance Directives Does patient have a Living Will: No Does patient have a Durable POA for Healthcare: No - Code Status/Comfort Care Code Status Assessed: Yes Code Status: Full Code Critical Care: No Time Spent Managing PTS Care (In Minutes): 45
[2019-03-18 07:48] LABS: Urine Appearance CLOUDY; Urine Bilirubin NEGATIVE (NEG); Urine Blood NEGATIVE (NEG); Urine Color YELLOW; Urine Glucose 2+ (NEG); Urine Protein 1+ (NEG); Urine Urobilinogen 0.2 mg/dL (0.2-1.0)
[2019-03-18] MEDS: CLOPIDOGREL 75 MG TABLET PO SCH (08:20)
[2019-03-18] MEDS: METOPROLOL XL 25 MG TAB PO SCH (08:20)
[2019-03-18] MEDS: GABAPENTIN 300 MG CAP PO SCH ×2 (08:20→20:31)
[2019-03-18] MEDS: ASPIRIN 81 MG CHEWABLE TABLET PO SCH (08:21)
[2019-03-18] MEDS: MUPIROCIN 2% OINT 22GM TUBE TOP SCH ×2 (08:21→20:32)
[2019-03-18] MEDS: HEPARIN 5000 UNIT/ML 1 ML VIAL SQ SCH ×2 (08:21→20:32)
[2019-03-18] MEDS: INSULIN LISPRO 100 UNIT/1 ML SQ SCH ×2 (08:22→20:32)
[2019-03-18 08:38] LABS: Urine Microscopic Reflex ORDER UMIC
[2019-03-18 08:39] LABS: Urine Bacteria >50 /HPF (<20); Urine Culture Reflex Order NOT NEEDED
[2019-03-18 09:25] LABS: Urine Protein/Creatinine Ratio 0.38 ratio (<0.15)
[2019-03-18] MEDS: PIPER/TAZO/NS 2.25gm 2.25 GM/50 ML BAG IVPB SCH ×2 (09:25→16:40)
--- NOTE | 2019-03-18 12:50 | ECHO ---
HEIGHT: 5 ft 10 in WEIGHT: 280 lb 0 oz DATE OF STUDY: 03/18/[address]: Austin Cabral MD 2-DIMENSIONAL: YES M.MODE: YES DOPPLER: YES COLOR FLOW: YES TDS: NO PORTABLE: NO DEFINITY: NO BUBBLE STUDY: NO DIAGNOSIS: CONGESTIVE HEART FAILURE CARDIAC HISTORY: CATHERIZATION: YES SURGERY: NO PROSTHETIC VALVE: NO PACEMAKER: NO MEASUREMENTS (cm) DIASTOLIC (NORMALS) SYSTOLIC (NORMALS) IVSd 1.3 (0.6-1.2) LA Diam 4.1 (1.9-4.0) LVEF 50% LVIDd 3.8 (3.5-5.7) LVIDs 2.8 (2.0-3.5) %FS 25% LVPWd 1.2 (0.6-1.2) Ao Diam 2.8 (2.0-3.7) 2 DIMENSIONAL ASSESSMENT: RIGHT ATRIUM: NORMAL LEFT ATRIUM: DILATED RIGHT VENTRICLE: NORMAL LEFT VENTRICLE: NORMAL TRICUSPID VALVE: NORMAL MITRAL VALVE: MITRAL ANNULAR CALCIFICATION PULMONIC VALVE: NORMAL AORTIC VALVE: MITRAL ANNULAR CALCIFICATION PERICARDIAL EFFUSION: NONE AORTIC ROOT: NORMAL LEFT VENTRICULAR WALL MOTION: NORMAL. DOPPLER/COLOR FLOW: MILD TRICUSPID REGURGITATION. COMMENTS: MILD LEFT ATRIAL ENLARGEMENT. NORMAL LEFT VENTRICULAR SIZE AND FUNCTION. MITRAL ANNULAR CALCIFICATION. AORTIC SCLEROSS, NO STENOSIS. TECHNOLOGIST: CARIDAD LAMB
--- NOTE | 2019-03-18 13:37 | P.PN ---
Subjective Date of Service: 03/18/19 Chief Complaint: Acute kidney injury/metabolic alkalosis/Hyperkalemia Currently sleepy. Denies any new complaints. Review of Systems 10-point ROS is otherwise unremarkable Physical Examination - Vital Signs Temperature: 97.8 F Blood Pressure: 109/59 Pulse: 72 Respirations: 18 Pulse Ox (%): 94 - Physical Exam General: Alert, In no apparent distress HEENT: Atraumatic, PERRLA, EOMI Neck: Supple, JVD not distended Respiratory: Clear to auscultation bilaterally, Normal air movement Cardiovascular: Regular rate/rhythm, Normal S1 S2 Gastrointestinal: Normal bowel sounds, No tenderness Musculoskeletal: No tenderness Integumentary: No rashes Neurological: Normal speech, Normal tone, Normal affect Lymphatics: No axilla or inguinal lymphadenopathy - Studies Laboratory Data (last 24 hrs) 03/18/19 04:18: Sodium 131 L, Potassium 4.2, BUN 65 H, Creatinine 4.12 H, Glucose 437 H*, Phosphorus 4.0, Magnesium 2.2, Total Bilirubin 0.6, AST 26, ALT 28, Alkaline Phosphatase 92, Troponin I 0.34 H 03/18/19 04:18: WBC 8.5 D, Hgb 12.1, Hct 37.3, Plt Count 266 03/17/19 17:10: PT 11.6, INR 0.98 03/17/19 17:10: WBC 10.2, Hgb 13.1, Hct 40.0, Plt Count 329 03/17/19 17:10: Sodium 130 L, Potassium 4.2, BUN 65 H, Creatinine 4.28 H, Glucose 302 H, Magnesium 2.4, Total Bilirubin 0.7, AST 30, ALT 28, Alkaline Phosphatase 104 Medications List Reviewed: Yes Assessment And Plan - Plan Ms. Clark presented with worsened renal function. #ANALIA on CKD- prerenal azotemia due to hypovolemia. Possible progressive disease - on IVF - No significant improvement on renal function - trend cr. Avoid nephrotoxins -check renal US; urine studies -Branch Banker #Hypovolemic Hyponatremia- NS IVF - Hold lasix -Monitor NA #DM- uncontrolled -Check hgba1c -BG AC & HS #H/o CHF- appears to hypovolemic at this time -clinical social worker consulted #Obesity- lifestyle modification DVT ppx- lovenox Patient is full code
[2019-03-18 18:23] LABS: Absolute Lymphocytes (CBC) 2.2 K/uL (0.7-4.9); Lymphocytes % 27.6 % (15.3-44.8); RBC Red Blood Cell Count 4.39 M/uL (3.86-4.86)
--- NOTE | 2019-03-18 18:38 | PN ---
Date of Progress Note: 03/18/2019 Subjective: The patient was admitted with acute kidney injury on chronic kidney disease secondary to glucose diuresis. The patient was started on hydration. Kidney function still plateaued. Blood moya gar still elevated. Physical Examination: Vital Signs: Blood pressure 109/59, pulse of 72, afebrile. The patient had good urine output voidin g. Chest: Clear to auscultation. Heart: S1 and S2 are regular. Abdomen: Soft, nontender. Extremities: Trace edema. Laboratory Data: WBC 8.5, H and H of 12.1/37.3, platelets of 266. Sodium 131, potassium 4.2, bicarb 33, BUN 65, creatinine 2.1, GFR of 11. Blood sugar still above 300, calcium of 10. It was 11.3, ph osphor of 4, magnesium of 2.2. BNP of 1700. Renal ultrasound: Normal size kidney, no hydro. Chest x-ray: Cardiomegaly with congestion. Assessment And Plan: 1.Acute kidney injury, multifactorial, secondary to prerenal, secondary to glucose diuresis, calcium diuresis/gastrointestinal loss, superimposed with Lasix use/Ranexa. Plateau to nonoliguric. No hyp erkalemia, still behind on IV fluid. I am going to continue hydration for the time being. I am luciana g to send it for full serology workup. 2.Hypercalcemia secondary to dehydration. On the recovery, we will send for PTH and vitamin D. 3.Hypertension with the presence of acute kidney injury. Discontinue all the diuresis. Keep holdin g any BILL inhibitor or ARB. 4.Diabetes and controlled. Continue hydration. Follow up with primary. 5.Urinary tract infection. Patient was started on Zosyn. Culture still pending. We will follow up . FAITH/HOA Voice ID: [id number] Report ID: [id number]
--- NOTE | 2019-03-18 19:32 | CON ---
Date of Consultation: 03/18/2019 Reason For Consultation: Congestive heart failure. History Of Present Illness: Ms. Clark is 63, does not have a history of CHF in the past. She has a history of diabetes, hypertension, coronary artery disease. She is status post stent in the past. Came in with multiple symptoms including weakness, vomiting, dizziness, was found to have cellulitis, but was also found to have a creatinine of 4.12, which is new for her. Renal ultrasound so far is n ormal. Chest x-ray was actually negative without any evidence of CHF or volume overload. Her tropon in was 0.34. BNP was 1772, probably consistent with her renal failure. She was hyperglycemic with a glucose of 437. She denied any chest pain. Denied any PND, orthopnea, pedal edema, palpitations, o r syncope. Allergies: SHE IS ALLERGIC TO PREDNISONE AND VANCOMYCIN. Medications: At home include aspirin, Plavix, Lipitor, Neurontin, metoprolol. She is now also on he manjeet insulin and antibiotics. Review of Systems: Negative. Social History: Negative. Family History: Negative. Physical Examination: General: She weighed 280 pounds. Vital Signs: Stable. She was in sinus rhythm, afebrile. HEENT: Negative. Neck: Supple without any bruit, lymphadenopathy, JVD, or thyromegaly. Chest: Clear to auscultation and percussion. Cardiac: Revealed a regular rhythm and rate with an S4 gallops. No murmurs or rubs. Abdomen: Obese, but benign. Extremities: Revealed chronic venous changes. No edema. Skin: Dry and intact. Neurologic: Nonfocal. Diagnostic Data: As stated earlier. Impression And Plan: 1.I think Mrs. Clark's symptoms are secondary to acute on chronic renal failure. I do not think france flower has congestive heart failure. An echocardiogram is pending. She is not on any Lasix right now. S he is already improving with hydration and probably consultation is pending. 2.History of coronary artery disease, status post stent. I do not think she needs her Plavix anymor e that has been many years ago. No chest pain has been reported. 3.Diabetes, poorly controlled. 4.Hypertension, well controlled. 5.Cellulitis of the right foot. 6.Elevated troponin and BNP secondary to renal failure. I agree with her present regimen. We will await Nephrology consultation. I will see what her echocardiogram shows. No further cardiac recomme ndations at this point. GUERDA/HOA Voice ID: [id number] Report ID: [id number]
[2019-03-18] MEDS: ATORVASTATIN 80 MG TAB PO SCH (20:31)
--- NOTE | 2019-03-18 20:58 | EKG ---
Test Date: 2019-03-17 Test Time: 17:53:34 Assistant Superintendent For Curriculum: DEVON MEASUREMENT RESULTS: Intervals: Rate: 66 NM: 270 QRSD: 140 QT: 460 QTc: 482 [place]: P: 62 NM: 270 QRS: 30 T: 185 INTERPRETIVE STATEMENTS: Sinus rhythm with 1st degree AV block Nonspecific intraventricular block T wave abnormality, consider lateral ischemia Abnormal ECG Compared to ECG 07/12/2018 10:00:45 Possible ischemia now present Intraventricular conduction delay no longer present T-wave abnormality still present Electronically Signed On 03-18-19 20:55:17 OCEAN FORWARDER by Austin Cabral
[2019-03-18] MEDS ORDERED: INSULIN GLARGINE 100 UNITS/ML SQ SCH (21:00)
[2019-03-19] MEDS: PIPER/TAZO/NS 2.25gm 2.25 GM/50 ML BAG IVPB SCH ×3 (00:29→17:00)
[2019-03-19] MEDS: NA CHLORIDE 0.9% 1,000 ML IV SCH ×3 (00:31→20:46)
[2019-03-19 05:01] LABS: Absolute Lymphocytes (CBC) 2.5 K/uL (0.7-4.9); Basophils % 1.3 % (0-1.3); Hematocrit 34.9 % (36.0-45.0); Lymphocytes % 31.7 % (15.3-44.8); MPV 8.9 fL (7.6-11.3); RBC Red Blood Cell Count 4.01 M/uL (3.86-4.86)
[2019-03-19 05:30] LABS: Albumin 3.1 g/dL (3.4-5.0); Bilirubin Total 0.4 mg/dL (0.2-1.0); Magnesium 2.3 mg/dL (1.8-2.4); Phosphorus 3.2 mg/dL (2.5-4.9); Potassium 4.1 mmol/L (3.5-5.1); Protein, Total 6.9 g/dL (6.4-8.2); Uric Acid 12.1 mg/dL (2.6-6.0)
[2019-03-19 05:34] LABS: Thyroid Stimulating Hormone 4.71 uIU/mL (0.360-3.740)
[2019-03-19] MEDS: METOPROLOL XL 25 MG TAB PO SCH (09:29)
[2019-03-19] MEDS: ASPIRIN 81 MG CHEWABLE TABLET PO SCH (09:30)
[2019-03-19] MEDS: CLOPIDOGREL 75 MG TABLET PO SCH (09:30)
[2019-03-19] MEDS: INSULIN LISPRO 100 UNIT/1 ML SQ SCH ×5 (09:31→20:44)
[2019-03-19] MEDS: MUPIROCIN 2% OINT 22GM TUBE TOP SCH ×2 (09:31→20:43)
[2019-03-19] MEDS: GABAPENTIN 300 MG CAP PO SCH ×2 (09:31→20:46)
[2019-03-19] MEDS: HEPARIN 5000 UNIT/ML 1 ML VIAL SQ SCH ×3 (09:32→21:00)
[2019-03-19] MEDS ORDERED: D50W 25 GM/50 ML SYRINGE/VIAL IV PRN (11:47)
[2019-03-19] MEDS ORDERED: GLUCAGON 1 MG/VIAL IM PRN (11:47)
[2019-03-19] MEDS ORDERED: INSULIN -REGULAR HUMAN 50 UNIT/0.5 ML ML SQ SCH (11:49)
--- NOTE | 2019-03-19 12:12 | P.PN ---
Subjective Date of Service: 03/19/19 Chief Complaint: Acute kidney injury/metabolic alkalosis/Hyperkalemia Awake, alert. Denies any new complaints. Physical Examination - Vital Signs Temperature: 97.8 F Blood Pressure: 110/60 Pulse: 77 Respirations: 18 Pulse Ox (%): 98 - Physical Exam General: Alert, In no apparent distress, Obese HEENT: Atraumatic, PERRLA, EOMI Neck: Supple, JVD not distended Respiratory: Clear to auscultation bilaterally, Normal air movement Cardiovascular: Regular rate/rhythm, Normal S1 S2, Edema (trace bilateral pitting edema.) Gastrointestinal: Normal bowel sounds, No tenderness Musculoskeletal: No tenderness Integumentary: No rashes Neurological: Normal speech, Normal tone, Normal affect Lymphatics: No axilla or inguinal lymphadenopathy - Studies Medications List Reviewed: Yes Assessment And Plan - Plan Ms. Clark presented with worsened renal function. #ANALIA on CKD- prerenal azotemia due to hypovolemia. Possible progressive disease - on IVF - No significant improvement on renal function - trend cr. Avoid nephrotoxins -renal US; urine studies -Bumper Straightener on consult. #Hypovolemic Hyponatremia- NS IVF - Hold lasix -Monitor NA #DM- uncontrolled -hgba1c 10.4%. Resume home meds -BG AC & HS #H/o CHF- appears to hypovolemic at this time -apartment leasing agent consulted #Obesity- lifestyle modification DVT ppx- lovenox Patient is full code
--- NOTE | 2019-03-19 20:20 | CON ---
Date of Consultation: 03/19/2019 Brief History Of Present Illness: Patient is a 63-year-old female with a history of acute on chronic kidney injury. Her baseline creatinine was normally 2.3. She was presented here with hyp erkalemia, potassium 5.7. She was sent to the ER, where her creatinine was noted to be up at 4.28 ar ea. She had been weak, fatigued, lightheaded, ataxic, vertigo and she had presyncope as well. She i s admitted to the hospital with acute on chronic kidney injury and Nephrology and Cardiology were con sulted. I was consulted for placement of a tunneled hemodialysis catheter. Past Medical History: Significant for diabetes, hyperlipidemia, CHF, hypertension, chronic kidney dy sfunction, CKD. Past Surgical History: Hysterectomy, thyroidectomy, cholecystectomy, right foot surgery, heart stent s x2. Allergies: PREDNISONE AND VANCOMYCIN. Home Medications: Aspirin, which she received as of yesterday, Lipitor, vitamin D3, Plavix, Lasix, H umalog, Synthroid, Ranexa, gabapentin, insulin, metoprolol. Family History: Her mother had a stroke and heart stents. Her father had heart disease and cancer. Social History: She denies smoking, alcohol, or recreational drug use. Review of Systems: Ten-point review of systems other than HPI, denies. Physical Examination: Vital Signs: At the time of my examination, BMI of 40.2. Blood pressure 110/60, heart rate was 77, respiratory rate 18, temperature 97.8. General: She is awake, alert, and oriented. Psychiatric: She is appropriate and conversive. HEENT: She is normocephalic. Sclerae anicteric. Mucous membranes are moist. Oropharynx is clear. Neck: Supple. No JVD. She has a well-healed thyroid scar and a transverse collar incision. Chest: Normal expansion and excursion. Cardiovascular: Regular rate and rhythm. Pulmonary: Clear to auscultation bilaterally. Abdomen: Soft, nontender. Extremities: No clubbing, cyanosis, or edema. She has a missing digit on the right hand. She has w ounds of the bilateral lower extremities. Laboratory Data: Reveals a white blood count of 7.8, hemoglobin 11.4, hematocrit 34.9, platelet coun t is 269. Sodium 135, potassium 4.1, chloride 97, carbon dioxide 31, BUN 68, creatinine 4.14, glucos e 438. Hemoglobin A1c is 10.3. Uric acid is 12.1. AST is 29, ALT is 26, alkaline phosphatase is 81 . Imaging Data: She had imaging including a chest x-ray performed on 03/17, which was officially read as no acute cardiopulmonary process. She additionally had a head CT performed on 03/17, which was of ficially read as negative noncontrast CT of the head. She had a renal ultrasound on 03/17, which was officially read as no hydronephrosis or suspicious renal mass. No other significant findings. Assessment And Plan: This is a 63-year-old female with acute on chronic kidney failure. 1.Continue medical management per Dr. Cabral and Dr. Humphreys. 2.I have explained the risks, benefits, and alternatives of placement of a tunneled hemodialysis cat heter including but not limited to bleeding, infection, damage to surrounding tissues, pneumothorax, blood clots, heart attack, strokes, need for further operations or procedures. Patient agrees to pro ceed as indicated. ESTELA/HOA Voice ID: [id number] Report ID: [id number]
[2019-03-19] MEDS: ATORVASTATIN 80 MG TAB PO SCH (20:46)
[2019-03-19] MEDS ORDERED: INSULIN GLARGINE 100 UNITS/ML SQ SCH (21:00)
[2019-03-19] MEDS: CALCIUM CARB 500MG/VIT D 200 IU TAB PO SCH (21:22)
[2019-03-19 23:39] LABS: Rheumatoid Factor NEG (NEG)
[2019-03-20] MEDS: PIPER/TAZO/NS 2.25gm 2.25 GM/50 ML BAG IVPB SCH ×2 (00:11→09:52)
--- NOTE | 2019-03-20 00:17 | CON ---
Date of Consultation: 03/19/2019 Consulting Physician: Hospitalist. Reason For Consultation: Elevated BUN and creatinine, fluid management. 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 The patient came to the hospital complaining of weakness and fatigue, found to han ve elevated BUN and creatinine, elevated blood sugar. According to her in the last couple of weeks w patient did not compliant with her diet and her blood sugar being elevated. Over the nig ht, the patient was started on hydration. Kidney function is still on the rise. Creatinine up to 4. 2 with GFR down to 10. For that reason, we have been consulted. The patient denied any change in he r medications. No nausea. No vomiting, but has decreased intake. Denied taking any nonsteroidal. Allergies: TO PREDNISONE AND VANCOMYCIN. Past Medical History: Include, 1.Hypertension. 2.Hyperlipidemia. 3.Coronary artery disease status post PTCA, status post IL. 4.Diabetes complicated with neuropathy, nephropathy, and retinopathy. 5.Chronic kidney disease stage 4 secondary to diabetes nephropathy. Social History: Denies smoking, denies drinking, denies drugs abuse. Family History: Positive for diabetes. Surgical History: Positive for PTCA. Review of Systems: Head and Neck: No red eye. No ear pain. GI: Has decreased intake. : No polyuria, no dysuria, no hematuria. BOTTLE LABELER: No vaginal discharge. Respiratory: No shortness of breath. Cardiovascular: No chest pain. Endocrine: No polydipsia. Skin: No rash. Neuro: Has neuropathy. Musculoskeletal: Has generalized fatigue. Physical Examination: Vital Signs: Blood pressure 118/65, pulse of 71, afebrile. Chest: Clear to auscultation. Heart: S1, S2. Regular. Abdomen: Soft, nontender, obese. Extremities: Trace edema. Laboratory Data: WBC 7.8, H and H 11.4 and 34.9, platelets 269. Sodium 135, potassium 4.1, bicarb 3 1, BUN 68, creatinine 4.1, calcium 9, uric acid of 12, phosphorus 3.2. PTH less than 6. Albumin 3.1 . TSH 4.7. Urinalysis; PC ratio 0.3. Current Medications: The patient is on, IV fluids, aspirin, Zosyn, Plavix, metoprolol, Ranexa, gabap entin, Zofran, insulin. Physical Examination: Vital Signs: Blood pressure 118/65, pulse of 71. Chest: Clear to auscultation. Heart: S1, S2. Regular. Abdomen: Soft, nontender, obese. Extremities: Trace edema. Neurologic: Alert and oriented x3. Nonfocal. Assessment And Plan: 1.Acute kidney injury on advanced chronic kidney disease. Kidney function, not improving. I had a long discussion with the patient regarding the need to initiate renal replacement therapy. Patient a greed on the plan. We will go ahead and consult the surgeon for placement of the PermCath and we marizol l arrange for dialysis tomorrow. We will follow up serology. I am going to continue IV fluid for th e time being. 2.Hypertension, controlled, optimal keep holding any BILL inhibitor or ARB or any diuresis. 3.Hyperuricemia. I am going to go ahead and send to monitor and we will start the patient on allopu rinol. 4.Gastroenteritis. Continue symptomatic treatment. 5.Coronary artery disease, chronic congestive heart failure, currently on the dry side, continue hyd ration. 6.Diabetes, uncontrolled as by primary. FAITH/HOA Voice ID: [id number] Report ID: [id number]
[2019-03-20 00:27] VITALS: O2SAT 99
[2019-03-20 05:20] LABS: Absolute Lymphocytes (CBC) 2.9 K/uL (0.7-4.9); Basophils % 1.2 % (0-1.3); Hematocrit 36.3 % (36.0-45.0); Lymphocytes % 31.4 % (15.3-44.8); MPV 8.8 fL (7.6-11.3)
[2019-03-20 05:31] LABS: Albumin 3.3 g/dL (3.4-5.0); Magnesium 2.2 mg/dL (1.8-2.4); Phosphorus 2.8 mg/dL (2.5-4.9); Potassium 4.6 mmol/L (3.5-5.1)
[2019-03-20] MEDS ORDERED: LEVOTHYROXINE SOD 0.125 MG TAB PO SCH (06:00)
[2019-03-20] MEDS: NA CHLORIDE 0.9% 1,000 ML IV SCH (07:09)
[2019-03-20] MEDS: INSULIN LISPRO 100 UNIT/1 ML SQ SCH ×3 (07:30→11:30)
[2019-03-20] MEDS: CALCIUM CARB 500MG/VIT D 200 IU TAB PO SCH (09:00)
[2019-03-20] MEDS: CLOPIDOGREL 75 MG TABLET PO SCH (09:00)
[2019-03-20] MEDS: HEPARIN 5000 UNIT/ML 1 ML VIAL SQ SCH (09:00)
[2019-03-20] MEDS: ASPIRIN 81 MG CHEWABLE TABLET PO SCH (09:00)
[2019-03-20] MEDS: METOPROLOL XL 25 MG TAB PO SCH (09:49)
[2019-03-20] MEDS: MUPIROCIN 2% OINT 22GM TUBE TOP SCH (09:51)
[2019-03-20] MEDS ORDERED: NS 0.9% VIAL 0 ML ONE (10:31)
[2019-03-20] MEDS ORDERED: BUPIVACA 0.5%/EPI 0.0005%/PF 30 ML VIAL ONE (10:31)
[2019-03-20] MEDS ORDERED: HEPARIN 5000 UNIT/ML 1 ML VIAL ONE (10:32)
--- NOTE | 2019-03-20 12:35 | P.DS ---
Admission Date: 03/18/19 Discharge Date: 03/20/19 Disposition: ROUTINE DISCHARGE Discharge Condition: GOOD Reason for Admission: Acute kidney injury/metabolic alkalosis/Hyperkalemia Consultations: Nephrology Hospital Course: Ms. Clark is 63-year-old female with history of 318,hypertension and diabetes , came to the hospital from her PCPs office due to abnormal labs. Patient had labs performed on Sunday, March 12 and labs revealed acute kidney injury with a creatinine of 3.7. Patient's baseline creatinine is 2.3. Patient also had hyperkalemia with a potassium of 5.7. Patient was sent into the emergency room where her creatinine has gone up to 4.28. Clinically she appeared to be doing very poorly as she was lightheaded, ataxic, and had vertigo. She was admitted for acute on chronic failure versus progressive kidney disease. Patient was evaluated by cracking unit operator,high diuretics were held and she was hydrated intravenously. Patient creatinine trended down on currently at 3.5. Hyperkalemia did resolve. Hemodialysis was entertained however patient has opted to hold off for now given that creatinine was on a downward trend. She remained hemodynamically stable for discharge home. She will follow with her PCP and cracking unit operator for further care. Vital Signs/Physical Exam: Temp Pulse Resp BP Pulse Ox 97.1 F 73 18 130/59 L 99 03/20/19 08:00 03/20/19 09:49 03/20/19 08:00 03/20/19 09:49 03/20/19 08:00 General: Alert, In no apparent distress, Obese HEENT: Atraumatic, PERRLA, EOMI Neck: Supple, JVD not distended Respiratory: Clear to auscultation bilaterally, Normal air movement Cardiovascular: Regular rate/rhythm, Normal S1 S2 Gastrointestinal: Normal bowel sounds, No tenderness Musculoskeletal: No tenderness Integumentary: No rashes Neurological: Normal speech, Normal tone, Normal affect Lymphatics: No axilla or inguinal lymphadenopathy Laboratory Data at Discharge: WBC 9.3 K/uL (4.3-10.9) D 03/20/19 05:06 Hgb 11.9 g/dL (12.0-15.0) L 03/20/19 05:06 Hct 36.3 % (36.0-45.0) 03/20/19 05:06 Plt Count 278 K/uL (152-406) 03/20/19 05:06 PT 11.6 SECONDS (9.5-12.5) 03/17/19 17:10 INR 0.98 03/17/19 17:10 Sodium 139 mmol/L (136-145) 03/20/19 05:06 Potassium 4.6 mmol/L (3.5-5.1) 03/20/19 05:06 BUN 58 mg/dL (7-18) H 03/20/19 05:06 Creatinine 3.52 mg/dL (0.55-1.3) H 03/20/19 05:06 Glucose 171 mg/dL (74-106) H 03/20/19 05:06 Uric Acid Cancelled 03/19/19 05:00 Phosphorus 2.8 mg/dL (2.5-4.9) 03/20/19 05:06 Magnesium 2.2 mg/dL (1.8-2.4) 03/20/19 05:06 Total Bilirubin 0.4 mg/dL (0.2-1.0) 03/19/19 04:42 AST 29 U/L (15-37) 03/19/19 04:42 ALT 26 U/L (12-78) 03/19/19 04:42 Alkaline Phosphatase 81 U/L (45-117) 03/19/19 04:42 Troponin I 0.34 ng/mL (0.0-0.045) H 03/18/19 04:18 Home Medications: Aspirin Chewable [Aspirin Chewable*] 81 mg PO DAILY 05/27/18 Atorvastatin Calcium [Lipitor] 80 mg PO BEDTIME 05/27/18 Calcium Carb/Vitamin D3/Vit K1 [Calcium + D Soft Chewable Tab] 1 each PO BID Clopidogrel Bisulfate [Plavix*] 75 mg PO DAILY 05/27/18 Insulin Lispro [Humalog*] 15 unit SQ BID 05/27/18 Levothyroxine [Synthroid*] 125 mcg PO [id number] 05/27/18 Ranolazine [Ranexa] 1,000 mg PO BID 05/27/18 Gabapentin 300 mg PO DAILY 03/18/19 Gabapentin 600 mg PO BEDTIME 03/18/19 Insulin Glargine,Hum.rec.anlog [Basaglar Kwikpen U-100] 50 unit SQ BEDTIME 03/18 Metoprolol Succinate 25 mg PO DAILY 03/18/19 Diet: Renal Activity: Ad ronnie Followup: Linda Humphreys MD [ACTIVE - CAN ADMIT] - 1-2 Weeks (cracking unit operator- call to schedule an appointment, have labs drawn 2 days prior to visit.) Jarvis Javed MD [Primary Care Provider] - 1-2 Weeks (Primary care physician- call to schedule an appointment)
[2019-03-20] MEDS: GABAPENTIN 300 MG CAP PO SCH (13:05)
[2019-03-20 14:19] VITALS: BP 120/55; TEMP 96.8
--- NOTE | 2019-03-21 01:29 | PN ---
Date of Progress Note: 03/20/2019 History: Patient was admitted with acute kidney injury secondary to prerenal, secondary to glucose d iuresis. Patient has been on hydration for the last 2 days. Kidney function started to plateau. Physical Examination: Vital Signs: Blood pressure 120/59, pulse of 66. The patient had good urine output of 1400. Chest: Clear to auscultation. Heart: S1, S2, regular. Abdomen: Soft, nontender. Extremities: Trace edema. Laboratory Data: H and H 11.9 and 36.3. Sodium 139, potassium 4.6, bicarb 31, BUN 58, creatinine 3. 5. Assessment And Plan: 1.Acute kidney injury on advanced chronic kidney disease, nonoliguric, no hyperkalemia, no acidosis. I had a long discussion with the patient about the pros and cons of initiating dialysis right now. Patient is still hesitant to start it right now. I do not see any urgency to start it. We discusse d with the patient the need for close followup as outpatient. The patient verbalized understanding. We will go ahead and discharge the patient today. We will follow up in 2 weeks. 2.Hypertension, controlled, optimal. Continue current medication. Keep holding any diuresis. 3.Diabetes, as by primary. MA/MODL Voice ID: [id number] Report ID: [id number]
[2019-03-21 19:19] LABS: Hepatitis C Virus RNA (PCR)log <1.18 log IU/mL
[2019-03-21 23:24] LABS: HBsAG Nonreactive (Nonreactive)
[2019-03-22 22:05] LABS: Albumin, (SPE) 3.2 g/dL (3.8-4.8); Alpha-1-Globulins 0.3 g/dL (0.2-0.3); Alpha-2-Globulins 0.8 g/dL (0.5-0.9); Gamma Globulins 1.1 g/dL (0.8-1.7); INTERPRETATION REPORT
[2019-03-26 17:20] LABS: Vitamin D 1,25-Dihydroxy Total <8 pg/mL (18-72); Vitamin D,1,25-OH2, D2 <8 pg/mL
== END 2019-03-20 15:15 | disposition home or self-care (01) | DRG 683 ==
LOC: ER 15:52 → ERHOLD 19:31 → 4TH 20:31 → OBSVTOIN 03-18 06:49
PROVIDERS: ADMIT Hospitalist; ATTEND Hospitalist
DX: N17.9 Acute kidney failure, unspecified (principal); I13.0 Hypertensive heart and chronic kidney disease with heart failure and stage 1 through stage 4 chronic kidney disease, or unspecified chronic kidney disease; E87.3 Alkalosis; L03.115 Cellulitis of right lower limb; N39.0 Urinary tract infection, site not specified; Z68.41 Body mass index [BMI] 40.0-44.9, adult; L03.312 Cellulitis of back [any part except buttock and flank]; E87.1 Hypo-osmolality and hyponatremia; N18.4 Chronic kidney disease, stage 4 (severe); E87.5 Hyperkalemia; E66.9 Obesity, unspecified; E78.5 Hyperlipidemia, unspecified; I50.9 Heart failure, unspecified; I11.0 Hypertensive heart disease with heart failure; I25.10 Atherosclerotic heart disease of native coronary artery without angina pectoris; E83.52 Hypercalcemia; E11.65 Type 2 diabetes mellitus with hyperglycemia; E11.22 Type 2 diabetes mellitus with diabetic chronic kidney disease; E11.40 Type 2 diabetes mellitus with diabetic neuropathy, unspecified; E11.21 Type 2 diabetes mellitus with diabetic nephropathy; E11.319 Type 2 diabetes mellitus with unspecified diabetic retinopathy without macular edema; K52.9 Noninfective gastroenteritis and colitis, unspecified; E79.0 Hyperuricemia without signs of inflammatory arthritis and tophaceous disease; R27.0 Ataxia, unspecified; Z79.4 Long term (current) use of insulin
CPT/HCPCS: 36415; 70450; 71045; 76770; 80048; 80053; 80069; 80074; 80076; 81003; 81015; 82570; 82652; 82947; 83036; 83520; 83735; 83880; 83970; 84100; 84156; 84165; 84439; 84443; 84484; 84550; 85025; 85610; 86021; 86038; 86160; 86225; 86317; 86430; 86704; 86706; 87522; 93005; 93306; 96361; 96374; 99285; G0378; J1644; J1815; J2405; J7030; J8597

== ENCOUNTER 2019-11-20 16:54 | Inpatient (IN) | payer OTHER, SELFPAY ==
[2019-11-20] MEDS ORDERED: ONDANSETRON 4 MG (ODT) TAB ONE (19:09)
[2019-11-20] MEDS ORDERED: METOPROLOL TARTRATE 5 MG/5 ML INJ IV ONE (20:03)
--- NOTE | 2019-11-20 20:25 | RAD REPORT ---
EXAM DESCRIPTION: RAD - Chest Single View - 11/20/2019 8:09 pm CLINICAL HISTORY: vomiting COMPARISON: Portable March 2019 TECHNIQUE: AP portable chest image was obtained 11/20/2019 8:09 pm . FINDINGS: Lung volumes are low. Low lung volumes, large body habitus and under penetrated film techn ique result in substantial limitation of lung base assessment. Mid and upper lung boo clear of mass or consolidation. Mild cardiomegaly is present in part due to the exam limitations. Vasculature is prominent. No pneumothorax present. Pleural effusions cannot be excluded. No acute bony abnormality seen. No acute aortic findings suspected. IMPRESSION: Exam is significantly limited but not substantially different from March 2019. Pleural effusions and early failure can be masked.
[2019-11-20 20:35] LABS: Basophils % 0.7 % (0-1.3); Hematocrit 37.3 % (36.0-45.0); Lymphocytes % 11.9 % (15.3-44.8); MPV 7.6 fL (7.6-11.3); Protime INR 1.09; RBC Red Blood Cell Count 4.28 M/uL (3.86-4.86)
[2019-11-20] MEDS ORDERED: NA CHLORIDE 0.9% 1,000 ML ONE (20:44)
[2019-11-20 20:55] LABS: Bilirubin Direct 0.2 mg/dL (0-0.2); Bilirubin Total 0.7 mg/dL (0.2-1.0); Magnesium 2.6 mg/dL (1.8-2.4); Potassium 4.6 mmol/L (3.5-5.1); Protein, Total 7.2 g/dL (6.4-8.2)
[2019-11-20 20:59] LABS: Troponin (Emerg Dept Use Only) 0.85 ng/mL (0.0-0.045)
--- NOTE | 2019-11-20 21:50 | ER ---
Nurse's Notes [facility] Name: Mattie Clark Age: 64 yrs Sex: Female : 1955 Arrival Date: 11/20/2019 Time: 16:56 Bed 17 Private MD: Jarvis Javed R Diagnosis: Vomiting;Chronic kidney disease (CKD);Unspecified systolic (congestive) heart failure;Diabetes mellitus due to underlying condition Presentation: 11/19 17:28 Chief complaint: Patient states: N/V for 3 days, denies abd pain or fever. Coronavirus em screen: Client denies travel out of the [place] in the last 14 days. Ebola Screen: Patient negative for fever greater than or equal to 101.5 degrees Fahrenheit, and additional compatible Ebola Virus Disease symptoms Patient denies exposure to infectious person. Patient denies travel to an Ebola-affected area in the 21 days before illness onset. No symptoms or risks identified at this time. Initial Sepsis Screen: Does the patient meet any 2 criteria? No. Patient's initial sepsis screen is negative. Does the patient have a suspected source of infection? No. Patient's initial sepsis screen is negative. Risk Assessment: Do you want to hurt yourself or someone else? Patient reports no desire to harm self or others. Onset of symptoms was November 17, 2019. 17:28 Method Of Arrival: Wheelchair em 17:28 Acuity: BARBARA 3 em Triage Assessment: 18:45 General: Behavior is calm, cooperative. ls4 18:45 GI: Reports vomiting. ls4 Historical: - Allergies: 17:30 Prednisone; em 17:30 Vancomycin; em - PMHx: 17:30 Diabetes - IDDM; Hypertension; em - PSHx: 17:30 Heart stents; right foot sx; Cholecystectomy; em - Immunization history:: Adult Immunizations up to date. - Social history:: Smoking status: Patient denies any tobacco usage or history of. Screenin:20 Abuse screen: Denies threats or abuse. Denies injuries from another. Nutritional ls4 screening: No deficits noted. Tuberculosis screening: No symptoms or risk factors identified. Fall Risk None identified. Assessment: 19:21 Pain: Denies pain. GI: Abdomen is non-distended, obese, Bowel sounds present X 4 quads. ls4 Abd is soft and non tender X 4 quads. Reports nausea. 19:41 Reassessment: Patient appears in no apparent distress at this time. Patient and/or ls4 family updated on plan of care and expected duration. Pain level reassessed. Patient is alert, oriented x 3, equal unlabored respirations, skin warm/dry/pink. PT STATES SHE HAS NOT TAKEN MEDICATIONS IN 3 DAYS. TOOK MEDS BACK TO CAR. AWAITING MEDS SO THEY CAN BE DOCUMENTED. SIMÓN WHYTE NOTIFIED OF TELE RHYTHM AND LATEST BLOOD PRESSURE AFTER GETTING UP FROM STRETCHER. General: Appears uncomfortable, obese. Neuro: Level of Consciousness is awake, alert, obeys commands, Oriented to person, place, time, situation, Tape Coater are equal bilaterally Moves all extremities. Gait is steady, Speech is normal, Facial symmetry appears normal, Pupils are PERRLA, Intact. EENT: Eyes Sclera/Cornea are reddened in outer aspect of conjuctiva of right eye, inner aspect of conjuctiva of right eye, outer aspect of conjuctiva of left eye and inner aspect of conjunctiva of left eye. Derm: Skin is pale, Skin temperature is warm. 20:02 Reassessment: Patient appears in no apparent distress at this time. Patient and/or ls4 family updated on plan of care and expected duration. Pain level reassessed. Patient is alert, oriented x 3, equal unlabored respirations, skin warm/dry/pink. Respiratory: Airway is patent Breath sounds are diminished bilaterally. the patient has moderate shortness of breath. 20:02 Cardiovascular: Denies chest pain, Capillary refill < 3 seconds Patient's skin is warm ls4 and dry. Rhythm is sinus arrythmia Chest pain is denied. 20:19 Reassessment: Patient appears in no apparent distress at this time. Patient and/or ls4 family updated on plan of care and expected duration. Pain level reassessed. Patient is alert, oriented x 3, equal unlabored respirations, skin warm/dry/pink. 22:44 Reassessment: called floor to give report. Fariba states she will have nurse assuming care ls4 call me back. 23:00 Reassessment: REPORT TO JUAN BELLAMY. 2ND FLOOR. ls4 Vital Signs: 17:28 BP 124 / 85; Pulse 100; Resp 18; Temp 99.0(O); Pulse Ox 97% on R/A; Weight 136.08 kg em (R); Height 5 ft. 10 in. (177.80 cm); Pain 0/10; 19:22 BP 151 / 93 Supine; Pulse 81; Resp 16; Pulse Ox 98% on R/A; Pain 0/10; ls4 19:23 BP 148 / 85 Sitting; Pulse 96; Resp 18; Pulse Ox 89% on R/A; ls4 19:24 BP 184 / 162; Pulse 93; Resp 16; Pulse Ox 96% on 3 lpm NC; Pain 0/10; ls4 20:19 BP 142 / 92; Pulse 73; Resp 18; Pulse Ox 94% on 3 lpm NC; Pain 0/10; ls4 21:26 BP 152 / 85; Pulse 89; Resp 16; Pulse Ox 100% ; Pain 0/10; ls4 22:26 BP 144 / 84; Pulse 71; Resp 16; Pulse Ox 100% on 3 lpm NC; Pain 0/10; ls4 17:28 Body Mass Index 43.05 (136.08 kg, 177.80 cm) em 19:23 3 nasal canula applied. ls4 ED Course: 16:56 Patient arrived in ED. mr 16:56 Jarvis Javed MD is Private Physician. mr 17:29 Triage completed. em 17:30 Arm band placed on. em 18:55 Genesis Ivey RN is Primary Nurse. ls4 19:10 [facility] Why[facility]C [facility]. snw 19:10 Aguilar Trujillo MD is Attending Physician. snw 19:20 Patient has correct armband on for positive identification. Bed in low position. Call ls4 light in reach. Side rails up X 1. animal science professor on. Pulse ox on. NIBP on. Warm blanket given. Verbal reassurance given. Diet:. 19:20 No provider procedures requiring assistance completed. ls4 20:09 XRAY Chest (1 view) In Process Unspecified. EDMS 20:09 XRAY Chest (1 view) Sent. ls4 20:10 Initial lab(s) drawn, by me, sent to lab. Inserted saline lock: 18 gauge in right ls4 antecubital area, using aseptic technique. Blood collected. 21:48 Silver Quezada MD is Hospitalizing Provider. snw Administered Medications: 19:05 Drug: Zofran (Ondansetron) 4 mg Route: PO; ls4 19:16 Follow up: Response: No adverse reaction; Marked relief of symptoms ls4 19:58 Drug: Metoprolol 5 mg Route: IVP; Site: right antecubital; ls4 20:03 Drug: Metoprolol 5 mg Route: IVP; Site: right antecubital; ls4 20:17 Follow up: Response: No adverse reaction; Blood pressure is lowered ls4 20:10 Drug: NS 0.9% 1000 ml Route: IV; Rate: 125 ml/hr; Site: right antecubital; ls4 22:59 Follow up: IV Status: Completed infusion; IV Intake: 400ml ls4 22:00 Drug: Aspirin Chewable Tablet 81 mg Route: PO; ls4 22:58 Follow up: Urine output 223 ml ls4 22:01 Drug: Lovenox 100 mg Route: Sub-Q; Site: left lower abdomen; ls4 22:59 Follow up: Response: No adverse reaction; Marked relief of symptoms ls4 22:02 Drug: Metoprolol 5 mg Route: IVP; Site: right antecubital; ls4 22:58 Follow up: Response: No adverse reaction; Blood pressure is lowered ls4 22:07 Drug: Lasix 20 mg Route: IVP; Site: right antecubital; ls4 22:30 Follow up: Response: No adverse reaction; Marked relief of symptoms ls4 Intake: 22:59 IV: 400ml; Total: 400ml. ls4 Output: 22:58 Urine: 223ml; Total: 223ml. ls4 Outcome: 21:49 Decision to Hospitalize by Provider. snw 23:14 Patient left the ED. bb Signatures: Dispatcher [employer] EDSimón Gastelum, SARKISC EXTRUSION BENDER-Alexandra Vi BaronDavid, RN RN em Marie Tomlin RN RN bb Genesis Ivey RN RN ls4 Corrections: (The following items were deleted from the chart) 20:18 19:20 Patient did not have IV access during this emergency room visit. ls4 ls4 22:29 19:41 Reassessment: Patient appears in no apparent distress at this time. Patient ls4 and/or family updated on plan of care and expected duration. Pain level reassessed. Patient is alert, oriented x 3, equal unlabored respirations, skin warm/dry/pink. PT STATES SHE HAS NOT TAKEN MEDICATIONS IN 3 DAYS. TOOK MEDS BACK TO CAR. AWAITING MEDS SO THEY CAN BE DOCUMENTED. SIMÓN WHYTE NOTIFIED OF TELE RHYTHM AND LATEST BLOOD PRESSURE AFTER GETTING UP FROM STRETCHER. 4 22:39 19:23 BP 148 / 85 Sitting; Pulse 96bpm; Resp 18bpm; Pulse Ox 97%; [place] [id number] 22:39 19:24 BP 184 / 162; Pulse 93bpm; Resp 16bpm; Pulse Ox 96% RA; Pain 0/10; [place] [id number] 22:39 20:19 BP 142 / 92; Pulse 73bpm; Resp 18bpm; Pulse Ox 94% RA; Pain 0/10; [place] [address] 22:39 21:26 BP 152 / 85; Pulse 89bpm; Resp 16bpm; Pulse Ox 100% RA; Pain 0/10; [place] [address] 22:39 22:26 Pulse 71bpm; Resp 16bpm; Pulse Ox 100% 3 lpm Nasal Cannula; Pain 0/10; [place] [address] 22:56 20:19 General: Behavior is [place] [id number]
--- NOTE | 2019-11-20 21:50 | EDPHYS ---
Physician Documentation [facility] Name: Mattie Clark Age: 64 yrs Sex: Female : 1955 Arrival Date: 11/20/2019 Time: 16:56 Bed 17 Private MD: Jarvis Javed R ED Physician Aguilar Trujillo HPI: 11/19 21:34 This 64 yrs old Female presents to ER via Wheelchair with complaints of snw Nausea/Vomiting. 21:34 The patient presents to the emergency department with nausea, vomiting. Onset: The snw symptoms/episode began/occurred suddenly, 3 day(s) ago, and became persistent. Possible causes: unknown. The symptoms are aggravated by nothing. Associated signs and symptoms: The patient has no apparent associated signs or symptoms. Severity of symptoms: At their worst the symptoms were moderate pt unable to tolerate her medications x 3 days. The patient has not experienced similar symptoms in the past. It is unknown whether or not the patient has recently seen a physician, sees Dr. Javed. Historical: - Allergies: 17:30 Prednisone; em 17:30 Vancomycin; em - PMHx: 17:30 Diabetes - IDDM; Hypertension; em - PSHx: 17:30 Heart stents; right foot sx; Cholecystectomy; em - Immunization history:: Adult Immunizations up to date. - Social history:: Smoking status: Patient denies any tobacco usage or history of. ROS: 21:33 Constitutional: Negative for fever, chills, and weight loss, Eyes: Negative for injury, snw pain, redness, and discharge, ENT: Negative for injury, pain, and discharge, Neck: Negative for injury, pain, and swelling, Cardiovascular: Negative for chest pain, palpitations, and edema, Respiratory: Negative for shortness of breath, cough, wheezing, and pleuritic chest pain, Back: Negative for injury and pain, : Negative for injury, bleeding, discharge, and swelling, MS/Extremity: Negative for injury and deformity, Skin: Negative for injury, rash, and discoloration, Neuro: Negative for headache, weakness, numbness, tingling, and seizure, Psych: Negative for depression, anxiety, suicide ideation, homicidal ideation, and hallucinations. 21:33 Abdomen/GI: Positive for nausea and vomiting. Exam: 21:30 Head/Face: Normocephalic, atraumatic. snw 21:30 Constitutional: The patient appears alert, awake, uncomfortable. 21:30 Eyes: exopthalmus. 21:32 ENT: Nares patent. No nasal discharge, no septal abnormalities noted. Tympanic snw membranes are normal and external auditory canals are clear. Oropharynx with no redness, swelling, or masses, exudates, or evidence of obstruction, uvula midline. Mucous membranes moist. Neck: Trachea midline, no thyromegaly or masses palpated, and no cervical lymphadenopathy. Supple, full range of motion without nuchal rigidity, or vertebral point tenderness. No Meningismus. Chest/axilla: Normal chest wall appearance and motion. Nontender with no deformity. No lesions are appreciated. 21:32 Respiratory: Lungs have equal breath sounds bilaterally, clear to auscultation and percussion. No rales, rhonchi or wheezes noted. No increased work of breathing, no retractions or nasal flaring. Abdomen/GI: Soft, non-tender, with normal bowel sounds. No distension or tympany. No guarding or rebound. No evidence of tenderness throughout. Back: No spinal tenderness. No costovertebral tenderness. Full range of motion. Skin: Warm, dry with normal turgor. Normal color with no rashes, no lesions, and no evidence of cellulitis. MS/ Extremity: Pulses equal, no cyanosis. Neurovascular intact. Full, normal range of motion. Neuro: Awake and alert, GCS 15, oriented to person, place, time, and situation. Cranial nerves II-XII grossly intact. Motor strength 5/5 in all extremities. Sensory grossly intact. Cerebellar exam normal. Normal gait. Psych: Awake, alert, with orientation to person, place and time. Behavior, mood, and affect are within normal limits. 21:32 Cardiovascular: Rate: normal, Rhythm: irregular, Pulses: no pulse deficits are appreciated, Heart sounds: murmur. Vital Signs: 17:28 BP 124 / 85; Pulse 100; Resp 18; Temp 99.0(O); Pulse Ox 97% on R/A; Weight 136.08 kg em (R); Height 5 ft. 10 in. (177.80 cm); Pain 0/10; 19:22 BP 151 / 93 Supine; Pulse 81; Resp 16; Pulse Ox 98% on R/A; Pain 0/10; ls4 19:23 BP 148 / 85 Sitting; Pulse 96; Resp 18; Pulse Ox 89% on R/A; ls4 19:24 BP 184 / 162; Pulse 93; Resp 16; Pulse Ox 96% on 3 lpm NC; Pain 0/10; ls4 20:19 BP 142 / 92; Pulse 73; Resp 18; Pulse Ox 94% on 3 lpm NC; Pain 0/10; ls4 21:26 BP 152 / 85; Pulse 89; Resp 16; Pulse Ox 100% ; Pain 0/10; ls4 22:26 BP 144 / 84; Pulse 71; Resp 16; Pulse Ox 100% on 3 lpm NC; Pain 0/10; ls4 17:28 Body Mass Index 43.05 (136.08 kg, 177.80 cm) em 19:23 3 nasal canula applied. ls4 MDM: 21:26 Patient medically screened. snw 21:36 Data reviewed: vital signs, nurses notes. Data interpreted: Pulse oximetry: on room air snw is 100 %. Interpretation: normal. Counseling: I had a detailed discussion with the patient and/or guardian regarding: the historical points, exam findings, and any diagnostic results supporting the discharge/admit diagnosis, the presence of at least one elevated blood pressure reading (>120/80) during this emergency department visit, lab results, radiology results, the need for further work-up and treatment in the hospital. Physician consultation: Niles THOMAS was called at 21:36, regarding admission, to the telemetry unit. 11/19 19:35 Order name: Basic Metabolic Panel; Complete Time: 21:01 snw 11/19 19:35 Order name: CBC with Diff; Complete Time: 20:38 snw 11/19 19:35 Order name: LFT's; Complete Time: 21:01 snw 11/19 19:35 Order name: Magnesium; Complete Time: 21:01 snw 11/19 19:35 Order name: NT PRO-BNP; Complete Time: 21:01 snw 11/19 19:35 Order name: PT-INR; Complete Time: 20:39 snw 11/19 19:35 Order name: Troponin (emerg Dept Use Only); Complete Time: 21:01 snw 11/19 19:35 Order name: XRAY Chest (1 view); Complete Time: 20:38 snw 11/19 20:37 Order name: Glucose, Ancillary Testing; Complete Time: 20:38 EDMS 11/19 17:29 Order name: Orthostatics; Complete Time: 19:20 snw 11/19 18:22 Order name: FSBS; Complete Time: 19:05 snw 11/19 19:35 Order name: EKG; Complete Time: 19:38 snw 11/19 19:35 Order name: Cardiac monitoring; Complete Time: 20:09 snw 11/19 19:35 Order name: EKG - Nurse/Tech; Complete Time: 20:09 snw 11/19 19:35 Order name: IV Saline Lock; Complete Time: 20:09 snw 11/19 19:35 Order name: Labs collected and sent; Complete Time: 20:09 snw 11/19 19:35 Order name: O2 Per Protocol; Complete Time: 20:09 snw 11/19 19:35 Order name: O2 Sat Monitoring; Complete Time: 20:09 snw Administered Medications: 19:05 Drug: Zofran (Ondansetron) 4 mg Route: PO; ls4 19:16 Follow up: Response: No adverse reaction; Marked relief of symptoms ls4 19:58 Drug: Metoprolol 5 mg Route: IVP; Site: right antecubital; ls4 20:03 Drug: Metoprolol 5 mg Route: IVP; Site: right antecubital; ls4 20:17 Follow up: Response: No adverse reaction; Blood pressure is lowered ls4 20:10 Drug: NS 0.9% 1000 ml Route: IV; Rate: 125 ml/hr; Site: right antecubital; ls4 22:59 Follow up: IV Status: Completed infusion; IV Intake: 400ml ls4 22:00 Drug: Aspirin Chewable Tablet 81 mg Route: PO; ls4 22:58 Follow up: Urine output 223 ml ls4 22:01 Drug: Lovenox 100 mg Route: Sub-Q; Site: left lower abdomen; ls4 22:59 Follow up: Response: No adverse reaction; Marked relief of symptoms ls4 22:02 Drug: Metoprolol 5 mg Route: IVP; Site: right antecubital; ls4 22:58 Follow up: Response: No adverse reaction; Blood pressure is lowered ls4 22:07 Drug: Lasix 20 mg Route: IVP; Site: right antecubital; ls4 22:30 Follow up: Response: No adverse reaction; Marked relief of symptoms ls4 Disposition: 11/20/19 21:49 Hospitalization ordered by Silver Quezada for Observation. Preliminary diagnosis are Vomiting, Chronic kidney disease (CKD), Unspecified systolic (congestive) heart failure, Diabetes mellitus due to underlying condition. - Bed requested for Telemetry/MedSurg (observation). - Status is Observation. bb - Condition is Stable. - Problem is an acute exacerbation. - Symptoms are unchanged. Signatures: Dispatcher [employer] EDMS Joselin Roberts, TIME STUDY TECHNICIAN-C TIME STUDY TECHNICIAN-Csnw David Lassiter, RN RN em Marie Tomlin RN RN Ivory Gregorio RN RN cg Stewart, Lisa, RN RN ls4 Corrections: (The following items were deleted from the chart) 21:33 21:30 Constitutional: The patient appears alert, awake, uncomfortable, snw snw 22:25 21:49 Hospitalization Ordered by Silver Quezada MD for Observation. Preliminary cg diagnosis is Vomiting; Chronic kidney disease (CKD); Unspecified systolic (congestive) heart failure; Diabetes mellitus due to underlying condition. Bed requested for Telemetry/MedSurg (observation). Status is Observation. Condition is Stable. Problem is an acute exacerbation. Symptoms are unchanged. snw 23:14 22:25 11/20/2019 21:49 Hospitalization Ordered by Silver Quezada MD for Observation. bb Preliminary diagnosis is Vomiting; Chronic kidney disease (CKD); Unspecified systolic (congestive) heart failure; Diabetes mellitus due to underlying condition. Bed requested for Telemetry/MedSurg (observation). Status is Observation. Condition is Stable. Problem is an acute exacerbation. Symptoms are unchanged. cg
[2019-11-20] MEDS ORDERED: FUROSEMIDE 20 MG/ 2ML VIAL ONE (22:01)
[2019-11-20] MEDS ORDERED: ENOXAPARIN 100 MG/ML SYR SQ ONE (22:02)
[2019-11-20] MEDS ORDERED: ASPIRIN 81 MG CHEWABLE TABLET ONE (22:02)
--- NOTE | 2019-11-20 23:27 | P.HP ---
Certification for Inpatient Patient admitted to: Inpatient With expected LOS: >2 Midnights Patient will require the following post-hospital care: None Practitioner: I am a practitioner with admitting privileges, knowledge of patient current condition, hospital course, and medical plan of care. Services: Services provided to patient in accordance with Admission requirements found in Title 42 Section 412.3 of the Code of Federal Regulations <Niles Leo - Last Filed: 11/20/19 23:17> Patient History Date of Service: 11/20/19 Primary Care Provider: Dr. Javed, Nephrology Dr. Parisi, Reason for admission: NSTEMI History of Present Illness: 64-year-old female with history of chronic kidney disease stage 4, chronic diastolic congestive heart failure, diabetes mellitus type 2-insulin dependent, hypertension presents emergency department for nausea and vomiting. Patient reports that over the course of the last 3 days she has had nausea vomiting and been unable to tolerate her oral medications. Patient denies any chest pain or shortness of breath. Patient was evaluated in the emergency department and found to have elevated troponin at 0.8 and elevated BNP at 8000. Patient also noted to have frequent couplets on telemetry with otherwise sinus rhythm. Patient was hypertensive around 170s use 180s over 100. Patient given multiple rounds of metoprolol IV for blood pressure control and in hopes that it would help with ectopy. In the emergency department the patient was also given Lasix, aspirin, Lovenox. ED provider wishes to admit patient for further evaluation and management. When I saw the patient in the emergency department she is awake, alert, oriented x4. Patient states she is having no chest pain or shortness of breath. Patient denies any abdominal pain. Patient will be admitted for further evaluation and management. - Past Medical/Surgical History Diabetic: Yes -: Diabetes mellitus type 2, insulin-dependent -: Hyperlipidemia -: Chronic diastolic congestive heart failure -: Hypertension -: Chronic kidney disease stage 4 -: Secondary hypothyroidism -: hysterectomy -: thyroidectomy -: choleysectomy -: R foot sx -: heart stents X2 Psychosocial/ Personal History: Patient lives at home with her family. - Family History Mother -: Stroke Notes: heart stent Father -: Heart disease, Cancer - Social History Smoking Status: Never smoker Alcohol use: No CD- Drugs: No Caffeine use: No Place of Residence: Home <Niles Leo - Last Filed: 11/20/19 23:17> Date of Service: 11/22/19 <Silver Quezada - Last Filed: 11/22/19 16:04> Allergies prednisone Allergy (Verified 11/20/19 23:30) Hives/Rash vancomycin Adverse Reaction (Verified 11/20/19 23:30) Itching/Hives/Rash/kidney damage Home Medications: Aspirin Chewable [Aspirin Chewable*] 81 mg PO DAILY 05/27/18 Atorvastatin Calcium [Lipitor] 80 mg PO DAILY 05/27/18 Calcium Carb/Vitamin D3/Vit K1 [Calcium + D Soft Chewable Tab] 2 each PO BEDTIME 05/27/18 Clopidogrel Bisulfate [Plavix*] 75 mg PO DAILY 05/27/18 Insulin Lispro [Humalog*] 5 unit SQ BID 05/27/18 Levothyroxine [Synthroid*] 125 mcg PO [id number] 05/27/18 Ranolazine [Ranexa] 1,000 mg PO BID 05/27/18 Gabapentin 300 mg PO DAILY WITH BREAKFAST 03/18/19 Gabapentin 600 mg PO BEDTIME 03/18/19 Insulin Glargine,Hum.rec.anlog [Basaglar Kwikpen U-100] 45 unit SQ BEDTIME 03/18/19 Metoprolol Succinate 25 mg PO DAILY 03/18/19 Amlodipine [Norvasc*] 5 mg PO DAILY tab 11/22/19 Ezetimibe [Zetia*] 10 mg PO BEDTIME tab 11/22/19 Furosemide [Lasix 40 MG INJ*] 40 mg IV BIDL vial 11/22/19 Review of Systems 10-point ROS is otherwise unremarkable General: Weakness Gastrointestinal: Nausea, Vomiting <Niles Leo - Last Filed: 11/20/19 23:17> Physical Examination - Physical Exam General: Alert, In no apparent distress, Oriented x3 HEENT: Atraumatic, Normocephalic, Mucous membr. moist/pink Neck: Supple Respiratory: Crackles/rales (Mild bilaterally) Cardiovascular: Normal pulses, Normal S1 S2, Edema (Bilateral lower extremities 1+), Irregular heart rate/rhythm (Normal sinus rhythm with frequent couplets) Capillary refill: <2 Seconds Gastrointestinal: Normal bowel sounds, Soft and benign Musculoskeletal: No contractures, No erythema, No tenderness Integumentary: No significant lesion, No tenderness/swelling, No erythema Neurological: Normal speech, Normal strength at 5/5 x4 extr, Normal tone, Sensation intact - Studies Laboratory Data (last 24 hrs) 11/20/19 20:14: PT 12.8 H, INR 1.09 11/20/19 20:14: WBC 8.6, Hgb 12.2, Hct 37.3, Plt Count 314 11/20/19 20:14: Sodium 140, Potassium 4.6, BUN 34 H, Creatinine 2.00 H, Glucose 164 H, Magnesium 2.6 H, Total Bilirubin 0.7, AST 15, ALT 38, Alkaline Phosphatase 128 H <Niles Leo - Last Filed: 11/20/19 23:17> Assessment and Plan - Plan Assessment NSTEMI Acute on chronic diastolic congestive heart failure Chronic kidney disease stage 4 Diabetes mellitus type 2-insulin dependent Hypertension Nausea and vomiting Plan NSTEMI: Cardiology consult in place, continue with Lovenox 1 milligram/kilogram twice daily. Continue with beta-oleg, aspirin, statin therapy. Patient to remain on telemetry throughout this hospitalization. Patient is NPO after midnight. Will trend troponins. Appreciate further input from cardiology. Patient is chest pain-free at this time. EKG without acute findings. Acute on chronic diastolic congestive heart failure: Continue with IV Lasix diuresis. Will obtain echocardiogram due to NSTEMI. Appreciate further input from cardiology. Chronic kidney disease stage 4: Continue with IV diuresis this time. Patient may require heart catheterization with contrast. Anticipate possible worsening of renal function. Appreciate further input from nephrology. Diabetes mellitus type 2-insulin dependent: A.c. HS Accu-Cheks, sliding scale insulin therapy. Will start patient's long-acting insulin once dose information available. Hypertension: Have continue patient's home medications, will provide medications as needed as well. Nausea and vomiting: Continue p.r.n. medications including Zofran. Discharge Plan: Home Plan to discharge in: Greater than 2 days - Advance Directives Does patient have a Living Will: Yes Does patient have a Durable POA for Healthcare: No - Code Status/Comfort Care Code Status Assessed: Yes (Patient is full code) Critical Care: No Time Spent Managing Pts Care (In Minutes): 55 <Niles Leo - Last Filed: 09/17/20 23:17> Physician Review Additional Text: Plan of care discussed with Niles Leo, and I agree with the management plan as noted above. <Silver Quezada - Last Filed: 11/22/19 16:04>
[2019-11-20] MEDS ORDERED: ONDANSETRON 4 MG/2 ML VIAL IV PRN (23:28)
[2019-11-20] MEDS ORDERED: ACETAMINOPHEN 500 MG TAB PO PRN (23:28)
[2019-11-21 00:33] LABS: CKMB Creatine Kinase MB 3.4 ng/mL (0.3-3.6)
[2019-11-21 00:34] LABS: Troponin I 0.82 ng/mL (0.0-0.045)
[2019-11-21] MEDS: METOPROLOL XL 25 MG TAB PO SCH (05:14)
[2019-11-21] MEDS: LEVOTHYROXINE SOD 0.1 MG TAB PO SCH (05:14)
[2019-11-21 06:08] LABS: Absolute Lymphocytes (CBC) 1.7 K/uL (0.7-4.9); Basophils % 0.9 % (0-1.3); Hematocrit 34.4 % (36.0-45.0); MPV 7.4 fL (7.6-11.3); RBC Red Blood Cell Count 3.96 M/uL (3.86-4.86)
[2019-11-21 06:40] LABS: Potassium 4.6 mmol/L (3.5-5.1)
[2019-11-21 06:52] LABS: CKMB Creatine Kinase MB 3.2 ng/mL (0.3-3.6); Thyroid Stimulating Hormone 5.59 uIU/mL (0.360-3.740); Troponin I 0.7 ng/mL (0.0-0.045)
[2019-11-21] MEDS: INSULIN -REGULAR HUMAN 50 UNIT/0.5 ML ML SQ SCH ×4 (07:30→21:00)
[2019-11-21] MEDS: ASPIRIN EC 81 MG TAB PO SCH (08:00)
[2019-11-21] MEDS: AMLODIPINE 5 MG TAB PO SCH (08:01)
[2019-11-21] MEDS: CLOPIDOGREL 75 MG TABLET PO SCH (08:02)
[2019-11-21] MEDS: FUROSEMIDE 40 MG/4 ML VIAL IV SCH ×2 (08:03→17:00)
[2019-11-21] MEDS: ENOXAPARIN 100 MG/ML SYR SQ SCH ×2 (09:00→22:34)
[2019-11-21] MEDS: ENOXAPARIN 40 MG/0.4 ML SQ SCH ×2 (09:00→22:34)
[2019-11-21] MEDS ORDERED: HEPA 1000U/500MLS 2,000 UNIT/1,000 ML BAG IV ONE (12:04)
[2019-11-21] MEDS ORDERED: HEPARIN 5000 UNIT/ML 1 ML VIAL ONE (12:04)
[2019-11-21] MEDS ORDERED: MIDAZOLAM HCL 2 MG/2 ML INJ ONE (12:04)
[2019-11-21] MEDS ORDERED: LIDOCAINE 1% MPF 30 ML VIAL ONE (12:05)
[2019-11-21] MEDS ORDERED: ATROPINE SULF 1 MG/10 ML SYR IV ONE (12:05)
[2019-11-21] MEDS ORDERED: HEPARIN 10,000 UNIT/10 ML VIAL IV ONE (12:05)
[2019-11-21] MEDS ORDERED: FENTANYL CITR 100 MCG/2 ML ONE (12:05)
[2019-11-21] MEDS ORDERED: NICARDIPINE HCL 25 MG/10 ML IV ONE (12:05)
[2019-11-21] MEDS ORDERED: NA CHLORIDE 0.9% 500 ML IV ONE (12:25)
--- NOTE | 2019-11-21 12:41 | P.CNS ---
Date of Consult: 11/21/19 Reason for Consult: CKD Primary Care Provider: Dr. Javed, Nephrology Dr. 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, HTN, CAD and AK , CHF pt presented with nausea and vomiting of 3days duration , associated with SOB in ER Cr 2.0, Trop 0.8 and SBP 180 no fever , chills , headache or blurry vision Physical exam general: AAOX3, NAD , obese Neck; Supple, No elevated JVD hear: RRR, normal S1,2 no murmur or rub Chest: CTAB, no rlaes or wheezes Abdomen: Soft , Nt Extremities +1edema , No ulcer A/P CKD III due to DM and HTN nephrosclerosis renal dose meds pt is scheduled for cardiac cath today , have moderate risk for contrast nephropathy, discussed with pt and she comprehend understanding will give NS bolus then NS @ 0.4ml/kg for 12 hrs avoid NSAID NSTEMI IVF as above discssed with washer operator , will aim to use least amount possible of contrast HTN BP controlled now DM as per primary team CHF cont lasix for now will dc IVF tomorrow total time spent 45min Allergies prednisone Allergy (Verified 11/20/19 23:30) Hives/Rash vancomycin Adverse Reaction (Verified 11/20/19 23:30) Itching/Hives/Rash/kidney damage Home Medications: Aspirin Chewable [Aspirin Chewable*] 81 mg PO DAILY 05/27/18 Atorvastatin Calcium [Lipitor] 80 mg PO DAILY 05/27/18 Calcium Carb/Vitamin D3/Vit K1 [Calcium + D Soft Chewable Tab] 2 each PO BEDTIME 05/27/18 Clopidogrel Bisulfate [Plavix*] 75 mg PO DAILY 05/27/18 Insulin Lispro [Humalog*] 5 unit SQ BID 05/27/18 Levothyroxine [Synthroid*] 125 mcg PO [id number] 05/27/18 Ranolazine [Ranexa] 1,000 mg PO BID 05/27/18 Gabapentin 300 mg PO DAILY WITH BREAKFAST 03/18/19 Gabapentin 600 mg PO BEDTIME 03/18/19 Insulin Glargine,Hum.rec.anlog [Andres Nguyen U-100] 45 unit SQ BEDTIME 03/18/19 Metoprolol Succinate 25 mg PO DAILY 03/18/19 - Past Medical/Surgical History Diabetic: Yes -: Diabetes mellitus type 2, insulin-dependent -: Hyperlipidemia -: Chronic diastolic congestive heart failure -: Hypertension -: Chronic kidney disease stage 4 -: Secondary hypothyroidism -: hysterectomy -: thyroidectomy -: choleysectomy -: R foot sx -: heart stents X2 Psychosocial/ Personal History: Patient lives at home with her family. - Family History Mother Medical History: Stroke Notes: heart stent Father Medical History: Heart disease, Cancer - Social History Alcohol use: No CD- Drugs: No Caffeine use: No Place of Residence: Home Physical Examination Temp Pulse Resp BP Pulse Ox 97.1 F 79 20 141/74 H 100 11/21/19 08:00 11/21/19 08:00 11/21/19 08:00 11/21/19 08:00 11/21/19 08:00 Laboratory Data (last 24 hrs) 11/20/19 20:14: PT 12.8 H, INR 1.09 11/20/19 20:14: WBC 8.6, Hgb 12.2, Hct 37.3, Plt Count 314 11/20/19 20:14: Sodium 140, Potassium 4.6, BUN 34 H, Creatinine 2.00 H, Glucose 164 H, Magnesium 2.6 H, Total Bilirubin 0.7, AST 15, ALT 38, Alkaline Phosphatase 128 H
[2019-11-21] MEDS: NA CHLORIDE 0.9% 1,000 ML IV SCH (14:03)
--- NOTE | 2019-11-21 15:04 | ECHO ---
HEIGHT: 5 ft 10 in WEIGHT: 306 lb 9.6 oz DATE OF STUDY: 11/21/[address]: Niles Leo INSIDE SALES REPRESENTATIVE 2-DIMENSIONAL: YES M.MODE: YES DOPPLER: YES COLOR FLOW: YES TDS: YES PORTABLE: NO DEFINITY: NO BUBBLE STUDY: NO DIAGNOSIS: NSTEMI CARDIAC HISTORY: CATHERIZATION: SURGERY: PROSTHETIC VALVE: PACEMAKER: MEASUREMENTS (cm) DIASTOLIC (NORMALS) SYSTOLIC (NORMALS) IVSd 1.3 (0.6-1.2) LA Diam 5.1 (1.9-4.0) LVEF 56% LVIDd 4.6 (3.5-5.7) LVIDs 3.2 (2.0-3.5) %FS 29% LVPWd 1.5 (0.6-1.2) Ao Diam 2.6 (2.0-3.7) 2 DIMENSIONAL ASSESSMENT: RIGHT ATRIUM: NOT WELL SEEN LEFT ATRIUM: ENLARGED RIGHT VENTRICLE: NORMAL LEFT VENTRICLE: APPEARS NORMAL TRICUSPID VALVE: NOT WELL SEEN MITRAL VALVE: MODERATE MITRAL STENOSIS WITH MITRAL ANNULAR CALCIFICATION PULMONIC VALVE: NOT WELL SEEN AORTIC VALVE: NORMAL PERICARDIAL EFFUSION: NONE AORTIC ROOT: NORMAL LEFT VENTRICULAR WALL MOTION: SEE BELOW (POOR STUDY). DOPPLER/COLOR FLOW: SEE BELOW. COMMENTS: POOR STUDY. LEFT VETRICULAR EJECTION FRACTION APPEARS TO BE NORMAL 55-60%. THERE IS MITRAL STENOSIS AND MITRAL ANNULAR CALCIFICATION AND MOBILE STRUCTURE OF MITRAL VALVE THAT COULD BE CALCIFICATION, TRANSESOPHAGEAL ECHOCARDIOGRAM IS RECOMMENDED TO FURTHER EVALUATE. LEFT ATRIAL ENLARGEMENT. TECHNOLOGIST: CARIDAD LAMB
[2019-11-21] MEDS ORDERED: ACETYLCYST 20% 4 ML VIAL IH ONE (16:18)
[2019-11-21] MEDS ORDERED: FLUMAZENIL 0.1 MG/ML (5 mL VIAL) IV ONE (16:42)
[2019-11-21] MEDS ORDERED: NALOXONE 0.4 MG/ML VIAL ONE (16:43)
--- NOTE | 2019-11-21 18:06 | P.PN ---
Subjective Date of Service: 11/21/19 Primary Care Provider: Dr. Javed, Nephrology Dr. Parisi, Chief Complaint: NSTEMI Subjective: No new changes (feels slightly better this morning, no chest pain) Physical Examination - Vital Signs Temperature: 97.0 F Blood Pressure: 118/70 Pulse: 76 Respirations: 18 Pulse Ox (%): 100 - Physical Exam General: Alert, In no apparent distress HEENT: Mucous membr. moist/pink, Sclerae nonicteric Respiratory: Diminished, Crackles/rales (mild at bases) Cardiovascular: Regular rate/rhythm, Edema (1+) Gastrointestinal: Soft and benign, Non-distended, No tenderness Musculoskeletal: No tenderness Integumentary: No rashes Neurological: Normal speech, Normal affect - Studies Laboratory Data (last 24 hrs) 11/20/19 20:14: PT 12.8 H, INR 1.09 11/20/19 20:14: WBC 8.6, Hgb 12.2, Hct 37.3, Plt Count 314 11/20/19 20:14: Sodium 140, Potassium 4.6, BUN 34 H, Creatinine 2.00 H, Glucose 164 H, Magnesium 2.6 H, Total Bilirubin 0.7, AST 15, ALT 38, Alkaline Phosphatase 128 H Assessment & Plan Physician Review Additional Text: NSTEMI Acute on chronic diastolic congestive heart failure Chronic kidney disease stage 4 Diabetes mellitus type 2-insulin dependent Hypertension Nausea and vomiting NSTEMI: Cardiology consulted Continue with beta-oleg, aspirin, statin therapy. NPO, hold AM lovenox for possible cardiac cath chest pain has resolved findings. Acute on chronic diastolic congestive heart failure: Continue with IV Lasix diuresis. Will obtain echocardiogram due to NSTEMI. Appreciate further input from cardiology. Chronic kidney disease stage 4: Continue with IV diuresis this time. Patient may require heart catheterization with contrast. Anticipate possible worsening of renal function, hopefully can use low amount of contrast vs possibly only doing stress test Diabetes mellitus type 2-insulin dependent: A.c. HS Accu-Cheks, sliding scale insulin therapy. Will start patient's long- acting insulin once dose information available. Hypertension: Have continue patient's home medications, will provide medications as needed as well. Nausea and vomiting: Continue p.r.n. medications including Zofran. Dispo: pending cath Time Spent Managing Pts Care (In Minutes): 35
[2019-11-21] MEDS ORDERED: ATORVASTATIN 40 MG TAB PO SCH (21:00)
[2019-11-21] MEDS ORDERED: EZETIMIBE 10 MG TAB PO SCH (21:00)
[2019-11-22 04:27] VITALS: BMI 42.1
[2019-11-22] MEDS: LEVOTHYROXINE SOD 0.1 MG TAB PO SCH (05:31)
[2019-11-22] MEDS: METOPROLOL XL 25 MG TAB PO SCH (05:31)
[2019-11-22] MEDS: NA CHLORIDE 0.9% 1,000 ML IV SCH ×2 (05:40→12:33)
[2019-11-22 06:10] LABS: Absolute Lymphocytes (CBC) 1.4 K/uL (0.7-4.9); Basophils % 0.7 % (0-1.3); Hematocrit 32.4 % (36.0-45.0); Lymphocytes % 18.9 % (15.3-44.8); MPV 7.8 fL (7.6-11.3); RBC Red Blood Cell Count 3.72 M/uL (3.86-4.86)
[2019-11-22 06:41] LABS: Magnesium 2.2 mg/dL (1.8-2.4); Potassium 4.4 mmol/L (3.5-5.1)
[2019-11-22] MEDS: INSULIN -REGULAR HUMAN 50 UNIT/0.5 ML ML SQ SCH ×2 (07:30→12:33)
[2019-11-22] MEDS: ENOXAPARIN 40 MG/0.4 ML SQ SCH (08:40)
[2019-11-22] MEDS: ASPIRIN EC 81 MG TAB PO SCH (08:41)
[2019-11-22] MEDS: CLOPIDOGREL 75 MG TABLET PO SCH (08:41)
[2019-11-22] MEDS: AMLODIPINE 5 MG TAB PO SCH (08:41)
[2019-11-22] MEDS: ENOXAPARIN 100 MG/ML SYR SQ SCH (08:41)
[2019-11-22] MEDS: FUROSEMIDE 40 MG/4 ML VIAL IV SCH (08:42)
[2019-11-22 09:30] VITALS: O2SAT 92
--- NOTE | 2019-11-22 10:17 | P.PN ---
Subjective Date of Service: 11/22/19 Primary Care Provider: Dr. Javed, Nephrology Dr. Parisi, Chief Complaint: NSTEMI Subjective: No new changes, Other (Underwent cardiac catheterization yesterday with significant multivessel disease Patient reports no significant changes, has continued with improvement in breathing, no chest pain) Physical Examination - Vital Signs Temperature: 97 F Blood Pressure: 135/63 Pulse: 73 Respirations: 20 Pulse Ox (%): 95 - Physical Exam General: Alert, In no apparent distress HEENT: Sclerae nonicteric Respiratory: Diminished (At bases bilaterally) Cardiovascular: Regular rate/rhythm, Edema (Lower extremity edema 1+ bilaterally) Gastrointestinal: Soft and benign, Non-distended, No tenderness Musculoskeletal: No erythema, No tenderness Integumentary: No rashes Neurological: Normal speech, Normal affect Assessment & Plan Physician Review Additional Text: NSTEMI Acute on chronic diastolic congestive heart failure Chronic kidney disease stage 4 Diabetes mellitus type 2-insulin dependent Hypertension Nausea and vomiting NSTEMI: Cardiology consulted Underwent cardiac catheterization on 11/20- significant multivessel cardiology recommended transfer to [place] for CABG - initiated last night Continue with beta-oleg, aspirin, statin therapy. Advance diet as tolerated chest pain has resolved Acute on chronic diastolic congestive heart failure: Continue with IV Lasix diuresis. Poor study, EF: 55-60%, mitral stenosis Chronic kidney disease stage 4: Continue with IV diuresis this time. Nephrology consulted Renal function stable, received <doses during yesterday's cardiac catheterization Continue to monitor Hypocalcemia, chronic -calcium:6.9, albumin on admission: 3.0; Corrected calcium closer to high sevens -restart home calcium supplementation Diabetes mellitus type 2-insulin dependent: A.c. HS Accu-Cheks, sliding scale insulin therapy. Hypertension: continue patient's home medications, will provide medications as needed as well. Nausea and vomiting: Continue p.r.n. medications including Zofran. Dispo: Initiated transferred to [place] for CABG Time Spent Managing Pts Care (In Minutes): 35
--- NOTE | 2019-11-22 14:38 | P.DS ---
Admission Date: 11/20/19 Discharge Date: 11/22/19 Primary Care Provider: Dr. Javed, Nephrology Dr. Parisi, Disposition: TRANSFER TO [facility] Discharge Condition: FAIR Reason for Admission: NSTEMI Consultations: Cardiology - Dr. Floyd Nephrology - Dr. Mills Procedures: CXR (11/19): Lung volumes are low. Low lung volumes, large body habitus and under penetrated film technique result in substantial limitation of lung base assessment. Mid and upper lung boo clear of mass or consolidation. Mild cardiomegaly is present in part due to the exam limitations. Vasculature is prominent. No pneumothorax present. Pleural effusions cannot be excluded. No acute bony abnormality seen. No acute aortic findings suspected. TTE (11/20): POOR STUDY. LEFT VETRICULAR EJECTION FRACTION APPEARS TO BE NORMAL 55-60%. THERE IS MITRAL STENOSIS AND MITRAL ANNULAR CALCIFICATION AND MOBILE STRUCTURE OF MITRAL VALVE THAT COULD BE CALCIFICATION, TRANSESOPHAGEAL ECHOCARDIOGRAM IS RECOMMENDED TO FURTHER EVALUATE. LEFT ATRIAL ENLARGEMENT. Cardiac Catheterization (11/20): Report unavailable at this time, however ore trimmer reported severe multivessel disease Problem list NSTEMI CAD with SD Acute on chronic diastolic CHF CKDIV Diabetes mellitus type 2 complicated with neuropathy, nephropathy, and retinopathy HTN Brief History of Present Illness: 64-year-old female with history of chronic kidney disease stage 4, chronic diastolic congestive heart failure, diabetes mellitus type 2-insulin dependent, hypertension presents emergency department for nausea and vomiting. Patient reports that over the course of the last 3 days she has had nausea vomiting and been unable to tolerate her oral medications. Patient denies any chest pain or shortness of breath. Patient was evaluated in the emergency department and found to have elevated troponin at 0.8 and elevated BNP at 8000. Patient also noted to have frequent couplets on telemetry with otherwise sinus rhythm. Patient was hypertensive around 170s use 180s over 100. Patient given multiple rounds of metoprolol IV for blood pressure control and in hopes that it would help with ectopy. In the emergency department the patient was also given Lasix, aspirin, Lovenox. Hospital Course: The patient was admitted for further evaluation. At the time of admission patient's chest pain had resolved. Her troponins were trended: 0.85->0.82->0.7, echocardiogram as above. She underwent cardiac catheterization on 11/21/2019 which revealed severe multivessel disease. Travel Freight And Passenger Agent recommended transfer to tertiary care center for CABG. Given her history of CKDIV, baseline Cr ~2.1 and admission BUN/Cr: 34/2.0, and Nephrology was consulted. Given her poor kidney function, minimal contrast was used during her cardiac catheterization. In addition to her home medications pain continued, she was being diuresed with 40 mg of IV Lasix b.i.d.. She was also being treated with 10 mg of Zetia q.h.s., and Norvasc 5 mg daily. She was noted to be hypocalcemic (history of chronic hypocalcemia) on 11/21. Her calcium was 6.9, albumin on admission was 3.0. So her corrected calcium is close to 7.7. Due to her being NPO for the above procedures she did not receive her home calcium and this was restarted 11/21. Vital Signs/Physical Exam: Temp Pulse Resp BP Pulse Ox 97 F 73 20 135/63 95 11/22/19 10:18 11/22/19 10:18 11/22/19 10:18 11/22/19 10:11/22/19 10:18 General: Alert, In no apparent distress, Oriented x3 HEENT: Sclerae nonicteric Neck: Supple Respiratory: Diminished (Slightly at bases bilateral) Cardiovascular: Regular rate/rhythm, Edema (1+ bilaterally to the knees) Gastrointestinal: Soft and benign, Non-distended, No tenderness Musculoskeletal: No erythema, No tenderness Integumentary: No rashes Neurological: Normal speech, Normal affect Laboratory Data at Discharge: WBC 7.4 K/uL (4.3-10.9) 11/22/19 05:09 Hgb 10.4 g/dL (12.0-15.0) L 11/22/19 05:09 Hct 32.4 % (36.0-45.0) L 11/22/19 05:09 Plt Count 256 K/uL (152-406) 11/22/19 05:09 PT 12.8 SECONDS (9.5-12.5) H 11/20/19 20:14 INR 1.09 11/20/19 20:14 Sodium 143 mmol/L (136-145) 11/22/19 05:09 Potassium 4.4 mmol/L (3.5-5.1) 11/22/19 05:09 BUN 33 mg/dL (7-18) H 11/22/19 05:09 Creatinine 2.09 mg/dL (0.55-1.3) H 11/22/19 05:09 Glucose 112 mg/dL (74-106) H 11/22/19 05:09 Magnesium 2.2 mg/dL (1.8-2.4) 11/22/19 05:09 Total Bilirubin 0.7 mg/dL (0.2-1.0) 11/20/19 20:14 AST 15 U/L (15-37) 11/20/19 20:14 ALT 38 U/L (12-78) 11/20/19 20:14 Alkaline Phosphatase 128 U/L (45-117) H 11/20/19 20:14 Troponin I 0.70 ng/mL (0.0-0.045) H* 11/21/19 05:54 Triglycerides 121 mg/dL (<150) 11/21/19 05:54 Cholesterol 109 mg/dL (<200) 11/21/19 05:54 HDL Cholesterol 41 mg/dL (40-60) 11/21/19 05:54 Cholesterol/HDL Ratio 2.66 11/21/19 05:54 Home Medications: Aspirin Chewable [Aspirin Chewable*] 81 mg PO DAILY 05/27/18 Atorvastatin Calcium [Lipitor] 80 mg PO DAILY 05/27/18 Calcium Carb/Vitamin D3/Vit K1 [Calcium + D Soft Chewable Tab] 2 each PO BEDTIME 05/27/18 Clopidogrel Bisulfate [Plavix*] 75 mg PO DAILY 05/27/18 Insulin Lispro [Humalog*] 5 unit SQ BID 05/27/18 Levothyroxine [Synthroid*] 125 mcg PO [id number] 05/27/18 Ranolazine [Ranexa] 1,000 mg PO BID 05/27/18 Gabapentin 300 mg PO DAILY WITH BREAKFAST 03/18/19 Gabapentin 600 mg PO BEDTIME 03/18/19 Insulin Glargine,Hum.rec.anlog [Basaglar Henriikpen U-100] 45 unit SQ BEDTIME Metoprolol Succinate 25 mg PO DAILY 03/18/19 Amlodipine [Norvasc*] 5 mg PO DAILY tab 11/22/19 Ezetimibe [Zetia*] 10 mg PO BEDTIME tab 11/22/19 Furosemide [Lasix 40 MG INJ*] 40 mg IV BIDL vial 11/22/19 Patient Discharge Instructions: Follow up with PCP within 1 week of discharge from hospital. Follow up with cardiology. In addition to patient's home medications being continued during her hospitalization. She was also receiving Lasix 40 mg IV b.i.d., Norvasc 5 mg daily, Zetia 10 mg at bedtime - at time of transfer. Diet: ADA Activity: Ad ronnie Time spent managing pt's care (in minutes): 55
[2019-11-22 14:40] VITALS: BP 121/69; TEMP 96.3
--- NOTE | 2019-11-22 20:55 | PN ---
Date of Progress Note: 11/22/2019 Subjective: The patient was admitted with non-ST elevation CT, acute kidney injury on chronic kidney disease secondary to cardiorenal. The patient did not require any renal replacement therapy. The p atient is maintained on diuresis, had good urine output. Physical Examination: Vital Signs: Blood pressure 121/69, pulse of 74, afebrile, had good urine output still han ve significant peripheral edema. Chest: Crackles bilateral base. Heart: S1, S2, systolic murmur. Abdomen: Soft, nontender. Extremities: +2 edema. Laboratory Data: WBC 7.4, H and H 10.4/32.4, sodium 143, potassium 4.4, bicarb 27, BUN 33, creatinin e 2, calcium 6.9, magnesium 2.2, albumin 3, corrected calcium 7.7. Current Medications: Include amlodipine 5 mg, atorvastatin, Zetia, metoprolol 25 b.i.d., Ranexa, Marek enox, Lasix 40 b.i.d., normal saline. Assessment And Plan: 1.Acute kidney injury on chronic kidney disease secondary to cardiorenal, still on the over-volume s jignesh, status post cardiac cath. Yesterday, the patient passed 12 hours after the cardiac cath. I am going to go ahead and discontinue IV fluid. We will increase the Lasix to 3 times a day to establish better volume control. 2.Hypertension, controlled, optimal. We will utilize blood pressure for more diuresis. 3.Secondary with hypocalcemia. Continue calcium carbonate. for PTH and vitam in D to consider vitamin D analog. 4.Coronary artery disease, non-ST elevation myocardial infarction with congestive heart failure. The patient is scheduled for coronary artery bypass graft. We will f earl perera MA/HOA Voice ID: [id number] Report ID: [id number]
[2019-11-22] MEDS ORDERED: FUROSEMIDE 40 MG/4 ML VIAL IV SCH (21:00)
[2019-11-22] MEDS ORDERED: VITAMIN D3 PO SCH (21:00)
[2019-11-22] MEDS ORDERED: CALCIUM CARB PO SCH (21:00)
[2019-11-22] MEDS ORDERED: VIT K1 PO SCH (21:00)
[2019-11-22] MEDS ORDERED: [UNRECOGNIZED DRUG - OTHER] PO SCH (21:00)
== END 2019-11-22 16:24 | disposition short-term general hospital (02) | DRG 280 ==
LOC: ER 16:54 → 2ND 22:13
PROVIDERS: ADMIT Hospitalist; ATTEND Hospitalist
PROC: 4A023N7 Measurement of Cardiac Sampling and Pressure, Left Heart, Percutaneous Approach (ICD-10-PCS; principal; 2019-11-21)
PROC: B2111ZZ Fluoroscopy of Multiple Coronary Arteries using Low Osmolar Contrast (ICD-10-PCS; 2019-11-21)
DX: I21.4 Non-ST elevation (NSTEMI) myocardial infarction (principal); I50.33 Acute on chronic diastolic (congestive) heart failure; I13.0 Hypertensive heart and chronic kidney disease with heart failure and stage 1 through stage 4 chronic kidney disease, or unspecified chronic kidney disease; N18.4 Chronic kidney disease, stage 4 (severe); E11.22 Type 2 diabetes mellitus with diabetic chronic kidney disease; E11.40 Type 2 diabetes mellitus with diabetic neuropathy, unspecified; E83.51 Hypocalcemia; E11.319 Type 2 diabetes mellitus with unspecified diabetic retinopathy without macular edema; I25.10 Atherosclerotic heart disease of native coronary artery without angina pectoris; I25.2 Old myocardial infarction; E78.5 Hyperlipidemia, unspecified; Z79.4 Long term (current) use of insulin; Z90.49 Acquired absence of other specified parts of digestive tract; Z90.710 Acquired absence of both cervix and uterus; Z95.5 Presence of coronary angioplasty implant and graft; Z88.8 Allergy status to other drugs, medicaments and biological substances; Z88.1 Allergy status to other antibiotic agents; Z79.82 Long term (current) use of aspirin; Z79.890 Hormone replacement therapy; Z79.02 Long term (current) use of antithrombotics/antiplatelets
CPT/HCPCS: 36415; 71045; 80048; 80061; 80076; 82550; 82553; 82947; 83735; 83880; 84439; 84443; 84484; 85025; 85610; 93005; 93306; 93454; 96361; 96372; 96374; 96375; 99284; C1893; J1644; J1650; J1940; J2250; J2310; J2405; J3010; J7030; J7040